=== PATIENT | female | born 1930 | race Caucasian/White ===

== ENCOUNTER 2017-07-02 14:01 | Emergency (ER) | payer MEDICAID, MEDICARE ==
[~2017-07-02] VITALS: Ht 154.9 cm; Wt 59.0 kg
[~2017-07-02 14:01] MED LIST: ARIC23TA PO; ATOR10 PO; BENT20TA PO; CALTTAB PO; FERR324T4 PO; HYDR-2768 PO; LORTA5 PO; LYRI150C PO; NORV5TAB PO; OMEP20TA39 PO; POTA20PA PO; STOO240C PO; VENL100T PO
[2017-07-02 14:03] VITALS: BP 180/80; PULSE 63; RESP 14; TEMP 98.6; O2SAT 95
--- NOTE | 2017-07-02 16:06 | RADRPT ---
EXAM DATE/TIME: 07/02/2017 15:29 [facility] COMPARISON: No previous studies available for comparison. INDICATIONS : Fell yesterday. MEDICAL HISTORY : None. SURGICAL HISTORY : right hip replacement apprx. 10 years ago per son in law ENCOUNTER: Initial ACUITY: 2 days PAIN SCORE: 0/10 LOCATION: Right hip and pelvis FINDINGS: 4 views right hip and pelvis. Diffuse bone demineralization. 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 No evidence of fracture. Alignment within normal limits. CONCLUSION: No evidence of fracture. Right hip prosthesis in place. Ron Moran MD on July 02, 2017 at 16:03 Board Certified Radiologist. This report was verified electronically.
--- NOTE | 2017-07-02 16:15 | PD ---
HPI Chief Complaint: Fall Time Seen by Provider: 15:51 Travel History International Travel<30 days: No Contact w/Intl Traveler<30days: No Traveled to known affect area: No History of Present Illness HPI 86-year-old female presents to the emergency Department with complaint of a bruise to her right hip and thigh after a trip and fall a week ago. She fell to her left side. Was pushed by her children to come in and be evaluated. Was also told by her primary care provider to come and get an x-ray. History of right hip surgery. She denies hitting her head or loss of consciousness. Denies neck pain or back pain. Denies anticoagulant therapy. He has been ambulatory on the effected extremity for the past week. Denies pain. Denies decreased range of motion, decreased strength, paresthesias, loss of sensation to the affected extremity. Denies chest pain, shortness of breath, abdominal pain, vomiting. Symptoms are mild in severity. Has not taken any medications or drainage from his to alleviate her symptoms. History of asthma and arthritis. Has established primary care provider. Allergies to penicillin, zolpidem, etodolac. Has no other medical complaints. No other modifying factors or associated signs and symptoms. PFSH Past Medical History Cancer: No Cardiovascular Problems: No Diabetes: No Endocrine: No Genitourinary: No Hepatitis: No Hiatal Hernia: No Immune Disorder: No Musculoskeletal: Yes (ARTHRITIS) Neurologic: No Psychiatric: Yes (CLAUSTRAPHOBIA) Reproductive: No Respiratory: Yes (ASTHMA) Thyroid Disease: No Past Surgical History Abdominal Surgery: Yes (CHOLECYSTECTOMY) AICD: No Eye Surgery: Yes (JAMES. CATARACT EXTRACT.) Joint Replacement: No Pacemaker: No Social History Tobacco Use: No Substance Use: No Allergies-Medications (Allergen,Severity, Reaction): Coded Allergies: penicillin G (Verified Allergy, Severe, TONGUE/ FACIAL SWELLING, 07/02/17) etodolac (Verified Adverse Reaction, Severe, ANXIETY, AGITATION, 07/02/17) zolpidem (Verified Adverse Reaction, Severe, HALLUCINATIONS, 07/02/17) Reported Meds & Prescriptions Reported Meds & Active Scripts Active Reported Klor-Con (Potassium Chloride) 20 Meq Pow 20 Meq PO DAILY *DISSOLVE POWDER IN 4 OUNCES OF WATER* [place] 5/325 (Hydrocodone-Acetaminophen) 325 Mg/5 Mg Tab 1 Tab PO TID PRN Hctz (Hydrochlorothiazide) 25 Mg Tab 25 Mg PO DAILY Stool Softener (Docusate Calcium) 240 Mg Cap 1 Cap PO HS Caltrate 600+D (Calcium Carbonate/Cholecalciferol) + Tab 1 Tab PO DAILY Ferrous Sulfate 325 Mg Tab 325 Mg PO DAILY Lipitor (Atorvastatin Calcium) 10 Mg Tab 10 Mg PO HS Norvasc (Amlodipine Besylate) 5 Mg Tab 5 Mg PO DAILY Aricept (Donepezil HCl) 23 Mg Tab 23 Mg PO DAILY Effexor (Venlafaxine HCl) 100 Mg Tab 150 Mg PO DAILY Lyrica (Pregabalin) 150 Mg Cap 150 Mg PO BID Hm Omeprazole (Omeprazole) 20 Mg Tab 20 Mg PO BID Bentyl (Dicyclomine HCl) 20 Mg Tab 20 Mg PO DAILY Review of Systems Except as stated in HPI: all other systems reviewed are Neg Physical Exam Narrative GENERAL: Well-nourished, well-developed elderly, female patient, in no acute distress; afebrile, nontoxic-appearing SKIN: Warm and dry. HEAD: Atraumatic. Normocephalic. EYES: Pupils equal and round. No scleral icterus. No injection or drainage. ENT: Mucosa pink and moist. Airway patent. NECK: Trachea midline. Moving freely. No midline tenderness on palpation of the cervical spine. CARDIOVASCULAR: Regular rate and rhythm. No murmur appreciated. RESPIRATORY: No accessory muscle use. Lungs sounds clear and equal bilaterally. GASTROINTESTINAL: Abdomen soft, non-tender, nondistended. Positive bowel sounds. No hepato-splenomegaly, or palpable masses. No guarding. MUSCULOSKELETAL: Right hip with full range of motion; without erythema, edema; with large area of stage 3-5 ecchymosis to the lateral thigh; no tenderness on abduction; no tenderness on palpation of right hip; no obvious deformity; no leg length discrepancy. Right lower extremity is supple and non-tense with 2+ pedal pulse and sensory intact and without erythema or edema. BACK: No point tenderness on palpation of the spine. NEUROLOGICAL: Awake and alert. Oriented 3. No obvious cranial nerve deficits. Motor grossly within normal limits. Normal speech. PSYCHIATRIC: Appropriate mood and affect; insight and judgment normal. Data Data Last Documented VS Vital Signs Date Time Temp Pulse Resp B/P (MAP) Pulse Ox O2 Delivery O2 Flow Rate FiO2 07/02/17 16:56 07/02/17 14:03 98.6 63 14 95 Orders Orders Hip, Uni(Ap&Lat) W Ap Pelvis (07/02/17 ) Ed Discharge Order (07/02/17 16:15) [facility] Medical Decision Making Medical Screen Exam Complete: Yes Emergency Medical Condition: Yes Medical Record Reviewed: Yes Differential Diagnosis Fall, hip contusion, hip fracture Narrative Course 86-year-old female for evaluation of right hip injury after a mechanical fall 1 week ago. Denies hitting her head or loss of consciousness. Denies neck pain or back pain. Was told by her primary care provider and her children to come in for evaluation and x-ray. She is in the laboratory with a normal gait. She denies pain. I offered the patient pain medication and she declined. Right hip x-ray with pelvis ordered. Hip and Pelvis X-Ray 07/02/17 0000 Signed Impressions: Service Date/Time: June 15:29 - CONCLUSION: No evidence of fracture. Right hip prosthesis in place. Ron Moran MD A copy of the x-ray was given to the patient. Patient has an appointment with orthopedic for follow-up. Instructed patient to follow up with primary care provider. Patient verbalizes understanding and agreement with treatment plan. Patient is medically cleared and stable for discharge. Discussed reasons to return to the emergency department. Patient agrees with treatment plan. The patients vital signs are stable and the patient is stable for outpatient follow- up and treatment. Patient discharged home, stable and in no acute distress. Diagnosis Primary Impression: Fall Qualified Codes: W19.XXXA - Unspecified fall, initial encounter Additional Impression: Contusion of right hip Qualified Codes: S70.01XA - Contusion of right hip, initial encounter Referrals: Orthopaedic Surgeon Primary Care Physician Patient Instructions: Fall Prevention for Older Adults (ED), General Instructions, Hip Contusion (ED) Additional Instructions: Tylenol or ibuprofen as directed and as needed for pain and inflammation Rest, ice, compress, and elevate extremity to decrease pain and inflammation Cane/walker for support as needed Avoid aggravating activity; increase activity as tolerated Follow-up with primary care provider Follow-up with orthopedic surgeon Return to the emergency department immediately with worsening of symptoms Med/Other Pt SpecificInfo: No Change to Meds, No Meds Exist/No RX given Disposition: 01 DISCHARGE HOME Condition: Stable Rassi,Linda K SCRAP CRUSHER Jul 02, 2017 16:15
== END 2017-07-02 16:56 | disposition home or self-care (01) ==
LOC: NEPD 14:01
DX: S70.01XA Contusion of right hip, initial encounter (principal); M19.90 Unspecified osteoarthritis, unspecified site; J45.909 Unspecified asthma, uncomplicated; W01.0XXA Fall on same level from slipping, tripping and stumbling without subsequent striking against object, initial encounter
CPT/HCPCS: 73502; 99283

== ENCOUNTER 2017-09-15 14:08 | Inpatient (IN) | payer MEDICARE, OTHER ==
[~2017-09-15] VITALS: Ht 152.4 cm; Wt 62.0 kg
[2017-09-15] MEDS ORDERED: PANTOPRAZOLE INJ 80 MG in SODIUM CHLORIDE 0.9% INJ 35 ML IV ONE (14:16)
[2017-09-15] MEDS ORDERED: SODIUM CHLOR 0.9% 1000 ML INJ 1,000 ML IV SCH ×2 (14:16→16:11)
[2017-09-15] MEDS: PANTOPRAZOLE INJ 80 MG in SODIUM CHLORIDE 0.9% INJ 100 ML IV SCH (14:16)
[2017-09-15 14:30] VITALS: BP 127/56; PULSE 71; RESP 18; TEMP 97.9; O2SAT 96
[2017-09-15] MEDS ORDERED: SODIUM CHLORIDE 0.9% FLUSH 10 ML FLUSH IVF PRN (14:30)
[2017-09-15] MEDS ORDERED: ONDANSETRON HCL 4 MG/2 ML VIAL IVP ONE (14:30)
[2017-09-15 14:46] LABS: AUTOMATED NEUTROPHIL # 6.5 TH/MM3 (1.8-7.7); BASOPHIL % 0.3 % (0.0-2.0); HEMATOCRIT 29.1 % (35.0-46.0); HEMOGLOBIN 9.9 GM/DL (11.6-15.3); LYMPH % 6.9 % (9.0-44.0); LYMPHOCYTE # 0.5 TH/MM3 (1.0-4.8); MEAN CELL VOLUME 90.3 FL (80.0-100.0); MEAN CORPUSCULAR HEMOGLOBIN 30.7 PG (27.0-34.0); MEAN PLATELET VOLUME 9.9 FL (7.0-11.0); MONO % 3.9 % (0.0-8.0); MONOCYTE # 0.3 TH/MM3 (0-0.9); NEUT % 88.9 % (16.0-70.0); PLATELET COUNT 172 TH/MM3 (150-450); RED BLOOD COUNT 3.22 MIL/MM3 (4.00-5.30); WHITE BLOOD COUNT 7.3 TH/MM3 (4.0-11.0)
--- NOTE | 2017-09-15 14:50 | PD ---
HPI Chief Complaint: GI Complaint Time Seen by Provider: 14:16 Travel History International Travel<30 days: No Contact w/Intl Traveler<30days: No Traveled to known affect area: No History of Present Illness HPI The patient is a 86-year-old female who presents to the emergency department via EMS for GI bleed. According to EMS the patient lives with her daughter, the daughter had gone out of the house and was gone for 3-4 hours. When the daughter arrived home the patient was sitting up in a chair, unconscious, with visible hematemesis on her clothing. When EMS arrived the patient's GCS was 3, they placed the patient on a stretcher and removed her to the ambulance where they were going to provide an airway, however, the patient then regained consciousness and went from a GCS of 3, up to a GCS of 14. Upon arrival the patient is awake, alert, somewhat limited historian. She is able to tell me her name and location, but not the year or month. EMS did provide a medication list, no visible anticoagulants, the patient is already on Protonix. The patient denies any chest pain, shortness of breath, or abdominal pain. EMS also states the patient's initial blood pressure was in the 70s, improved with IV fluids into the 120s. PFSH Past Medical History Cancer: No Cardiovascular Problems: No Diabetes: No Endocrine: No Genitourinary: No Hepatitis: No Hiatal Hernia: No Immune Disorder: No Musculoskeletal: Yes (ARTHRITIS) Neurologic: No Psychiatric: Yes (CLAUSTRAPHOBIA) Reproductive: No Respiratory: Yes (ASTHMA) Thyroid Disease: No Past Surgical History Abdominal Surgery: Yes (CHOLECYSTECTOMY) AICD: No Eye Surgery: Yes (JAMES. CATARACT EXTRACT.) Joint Replacement: No Pacemaker: No Social History Tobacco Use: No Substance Use: No Allergies-Medications (Allergen,Severity, Reaction): Coded Allergies: penicillin G (Verified Allergy, Severe, TONGUE/ FACIAL SWELLING, 07/02/17) etodolac (Verified Adverse Reaction, Severe, ANXIETY, AGITATION, 07/02/17) zolpidem (Verified Adverse Reaction, Severe, HALLUCINATIONS, 07/02/17) Reported Meds & Prescriptions Reported Meds & Active Scripts Active Reported Klor-Con (Potassium Chloride) 20 Meq Pow 20 Meq PO DAILY *DISSOLVE POWDER IN 4 OUNCES OF WATER* [place] 5/325 (Hydrocodone-Acetaminophen) 325 Mg/5 Mg Tab 1 Tab PO TID PRN Hctz (Hydrochlorothiazide) 25 Mg Tab 25 Mg PO DAILY Stool Softener (Docusate Calcium) 240 Mg Cap 1 Cap PO HS Caltrate 600+D (Calcium Carbonate/Cholecalciferol) + Tab 1 Tab PO DAILY Ferrous Sulfate 325 Mg Tab 325 Mg PO DAILY Lipitor (Atorvastatin Calcium) 10 Mg Tab 10 Mg PO HS Norvasc (Amlodipine Besylate) 5 Mg Tab 5 Mg PO DAILY Aricept (Donepezil HCl) 23 Mg Tab 23 Mg PO DAILY Effexor (Venlafaxine HCl) 100 Mg Tab 150 Mg PO DAILY Lyrica (Pregabalin) 150 Mg Cap 150 Mg PO BID Hm Omeprazole (Omeprazole) 20 Mg Tab 20 Mg PO BID Bentyl (Dicyclomine HCl) 20 Mg Tab 20 Mg PO DAILY Review of Systems ROS Limitations: Poor Historian Except as stated in HPI: all other systems reviewed are Neg Cardiovascular: No: Chest Pain or Discomfort Respiratory: No: Shortness of Breath Gastrointestinal: Positive: Vomiting, Hematemesis, No: Abdominal Pain Musculoskeletal: Positive: Weakness Neurologic: Positive: Weakness Physical Exam Narrative GENERAL: Awake, slightly lethargic, 86-year-old female SKIN: Focused skin assessment warm/dry. HEAD: Atraumatic. Normocephalic. EYES: No injection or drainage. ENT: No nasal bleeding or discharge. Dry blood in the oropharynx. NECK: Trachea midline. No JVD. CARDIOVASCULAR: Regular rate and rhythm. No murmur appreciated. Heart rate in the 80s. RESPIRATORY: No accessory muscle use. Clear to auscultation. Breath sounds equal bilaterally. GASTROINTESTINAL: Abdomen soft, n tender to palpation epigastrium. Well-healed upper right quadrant scar. Rectal: Gross melena visible that is guaiac positive on the patient's clothing. MUSCULOSKELETAL: No obvious deformities. No clubbing. No cyanosis. No edema. NEUROLOGICAL: Awake, slightly lethargic, and is oriented to person and place. However, patient is not oriented to month or year. Moves all 4 extremities without difficulty. PSYCHIATRIC: Appropriate mood and affect; insight and judgment normal. Data Data Last Documented VS Vital Signs Date Time Temp Pulse Resp B/P (MAP) Pulse Ox O2 Delivery O2 Flow Rate FiO2 09/15/17 14:30 97.9 71 18 127/56 (79) 96 Room Air Orders Orders Complete Blood Count With Diff (09/15/17 14:16) Comprehensive Metabolic Panel (09/15/17 14:16) Prothrombin Time / Inr (Pt) (09/15/17 14:16) Act Partial Throm Time (Ptt) (09/15/17 14:16) Type And Screen (09/15/17 14:16) Chest, Single Ap (09/15/17 14:16) Ecg Monitoring (09/15/17 14:16) Iv Access Insert/Monitor (09/15/17 14:16) Ng Gastric Tube Insert/Monitor (09/15/17 14:16) Orthostatic Vital Signs (09/15/17 14:16) Oximetry (09/15/17 14:16) Ondansetron Inj (Zofran Inj) (09/15/17 14:30) Sodium Chlor 0.9% 1000 Ml Inj (Ns 1000 M (09/15/17 14:16) Sodium Chloride 0.9% Flush (Ns Flush) (09/15/17 14:30) Sodium Chloride 0.9... W/Pantoprazole In (09/15/17 14:16) Sodium Chloride 0.9... W/Pantoprazole In (09/15/17 14:16) Consult Gastroenterology (09/15/17 ) Admit Order (Ed Use Only) (09/15/17 16:12) Admit To Inpatient (09/15/17 ) Code Status (09/15/17 16:11) Vital Signs (Adult) KLAUS.Q1H (09/15/17 16:11) Activity Bed Rest (09/15/17 16:11) Elevate Head Of Bed (09/15/17 16:11) Insert Ng Tube (09/15/17 16:11) Diet Npo (09/15/17 Dinner) Sodium Chlor 0.9% 1000 Ml Inj (Ns 1000 M (09/15/17 16:11) Sodium Chloride 0.9% Flush (Ns Flush) (09/15/17 16:15) Sodium Chloride 0.9% Flush (Ns Flush) (09/15/17 21:00) Ondansetron Inj (Zofran Inj) (09/15/17 16:15) Albuterol Neb (Albuterol Neb) (09/15/17 16:15) Complete Blood Count With Diff (09/16/17 04:00) Comprehensive Metabolic Panel (09/16/17 04:00) Magnesium (Mg) (09/16/17 04:00) Phosphorus (Po4) (09/16/17 04:00) Chest, Single Ap (09/16/17 ) Resp Incentive Spirometry (09/15/17 ) Resp Oxygen Severo C Titrat 1-4 L (09/15/17 ) Pt Request For Service (09/15/17 16:11) Machine Operator Replanter / Telemetry KLAUS.Q8H (09/15/17 16:11) Scd Bilateral/Knee High KLAUS.BID (09/15/17 16:11) ^ Initiate Protocol (09/15/17 16:11) Instruction (09/15/17 16:11) Notify Md To Reorder (09/15/17 16:15) Chlorhexidine 2% Cloth (Chlorhexidine 2% (09/16/17 04:00) Chlorhexidine 2% Cloth (Chlorhexidine 2% (09/15/17 16:15) Mrsa Pcr Surveillance (09/15/17 16:11) Inpatient Certification (09/15/17 ) Labs Laboratory Tests Test 09/15/17 14:30 White Blood Count 7.3 TH/MM3 Red Blood Count 3.22 MIL/MM3 Hemoglobin 9.9 GM/DL Hematocrit 29.1 % Mean Corpuscular Volume 90.3 FL Mean Corpuscular Hemoglobin 30.7 PG Mean Corpuscular Hemoglobin Concent 34.0 % Red Cell Distribution Width 15.0 % Platelet Count 172 TH/MM3 Mean Platelet Volume 9.9 FL Neutrophils (%) (Auto) 88.9 % Lymphocytes (%) (Auto) 6.9 % Monocytes (%) (Auto) 3.9 % Eosinophils (%) (Auto) 0.0 % Basophils (%) (Auto) 0.3 % Neutrophils # (Auto) 6.5 TH/MM3 Lymphocytes # (Auto) 0.5 TH/MM3 Monocytes # (Auto) 0.3 TH/MM3 Eosinophils # (Auto) 0.0 TH/MM3 Basophils # (Auto) 0.0 TH/MM3 CBC Comment DIFF FINAL Differential Comment Blood Urea Nitrogen 73 MG/DL Creatinine 1.13 MG/DL Random Glucose 190 MG/DL Total Protein 6.0 GM/DL Albumin 3.0 GM/DL Calcium Level 8.3 MG/DL Alkaline Phosphatase 67 U/L Aspartate Amino Transf (AST/SGOT) 52 U/L Alanine Aminotransferase (ALT/SGPT) 34 U/L Total Bilirubin 0.3 MG/DL Sodium Level 143 MEQ/L Potassium Level 3.3 MEQ/L Chloride Level 109 MEQ/L Carbon Dioxide Level 20.3 MEQ/L Anion Gap 14 MEQ/L Estimat Glomerular Filtration Rate 45 ML/MIN MDM Medical Decision Making Medical Screen Exam Complete: Yes Emergency Medical Condition: Yes Medical Record Reviewed: Yes Interpretation(s) Laboratory Tests Test 09/15/17 14:30 White Blood Count 7.3 TH/MM3 Red Blood Count 3.22 MIL/MM3 Hemoglobin 9.9 GM/DL Hematocrit 29.1 % Mean Corpuscular Volume 90.3 FL Mean Corpuscular Hemoglobin 30.7 PG Mean Corpuscular Hemoglobin Concent 34.0 % Red Cell Distribution Width 15.0 % Platelet Count 172 TH/MM3 Mean Platelet Volume 9.9 FL Neutrophils (%) (Auto) 88.9 % Lymphocytes (%) (Auto) 6.9 % Monocytes (%) (Auto) 3.9 % Eosinophils (%) (Auto) 0.0 % Basophils (%) (Auto) 0.3 % Neutrophils # (Auto) 6.5 TH/MM3 Lymphocytes # (Auto) 0.5 TH/MM3 Monocytes # (Auto) 0.3 TH/MM3 Eosinophils # (Auto) 0.0 TH/MM3 Basophils # (Auto) 0.0 TH/MM3 CBC Comment DIFF FINAL Differential Comment Blood Urea Nitrogen 73 MG/DL Creatinine 1.13 MG/DL Random Glucose 190 MG/DL Total Protein 6.0 GM/DL Albumin 3.0 GM/DL Calcium Level 8.3 MG/DL Alkaline Phosphatase 67 U/L Aspartate Amino Transf (AST/SGOT) 52 U/L Alanine Aminotransferase (ALT/SGPT) 34 U/L Total Bilirubin 0.3 MG/DL Sodium Level 143 MEQ/L Potassium Level 3.3 MEQ/L Chloride Level 109 MEQ/L Carbon Dioxide Level 20.3 MEQ/L Anion Gap 14 MEQ/L Estimat Glomerular Filtration Rate 45 ML/MIN Last Impressions Chest X-Ray 09/15/17 7516 Signed Impressions: Service Date/Time: Friday, September 15, 2017 15:04 - CONCLUSION: No acute cardiopulmonary abnormality is identified. Wang Jeffery MD Differential Diagnosis Differential diagnosis includes upper GI bleed, perforated viscus, peptic ulcer disease, gastritis, angiodysplasia, AV malformation, diverticulosis, internal hemorrhoids, symptomatic anemia. Narrative Course IV was established, labs are drawn and sent, and the patient was placed on cardiac telemetry monitoring and continuous pulse oximetry monitoring. EKG was ordered and interpreted. The patient was a arts and sciences dean Protonix bolus and placed on a Protonix drip. The patient's physical examination reveals gross melena within the undergarments as well as what appears to be dried blood over her shirt and pants. Therefore, type and screen was sent to lab. NG tube was placed. The patient's hemoglobin was 9.9, this is consistent with previous hemoglobin and EMR. However, the patient's BUN was 73 and creatinine was 1.13, previous BUN was 19. With the hematemesis, large amount of melena, most likely this is a upper GI bleed, possibly peptic ulcer disease/gastritis. The patient was placed on Protonix and a Protonix drip. As the patient did have a GCS of 3 at home, it did elevate to 14, however, she did have a large melena/blood bowel movement in the emergency department, therefore, the patient will be placed in the intensive care unit. A call was placed to the on-call grounds maintenance supervisor at 3:59 PM. I discussed the patient with Dr. Frank who is aware of the patient. A call was placed to the on-call cytotechnologist/cytology supervisor at 3:59 PM. I discussed the patient with Dr. Steward who agrees with admission. Critical Care Narrative Aggregate critical care time was 35 minutes. Time to perform other separately billable procedures was not included in the critical care time. My time did not include minutes spent treating any other patients simultaneously or on activities that did not directly contribute to the patient's treatment. The services I provided to this patient were to treat and/or prevent clinically significant deterioration that could result in: Hemorrhagic shock, aspiration, syncope, arrhythmia, . I provided critical care services requiring my management, as noted below: Chart data review, documentation time, medication orders and management, vital sign assessments/reviewing monitor data, ordering and reviewing lab tests, ordering and interpreting/reviewing x-rays and diagnostic studies, care of the patient and discussion of the patient with the admitting physicians. Physician Communication Physician Communication A call was placed to the on-call cytotechnologist/cytology supervisor. I discussed the patient with Dr. Steward who agrees with admission. I discussed the patient with Dr. Frank who is aware of the patient. Diagnosis Primary Impression: Upper GI bleed Additional Impression: Acute prerenal azotemia Admitting Information Admitting Physician Requests: Admit Condition: Stable Mario Webb MD Sep 15, 2017 14:50
[2017-09-15 15:02] LABS: ALT (GPT) 34 U/L (10-53); AST (GOT) 52 U/L (15-37); BICARBONATE 20.3 MEQ/L (21.0-32.0); BLOOD UREA NITROGEN 73 MG/DL (7-18); CALCIUM 8.3 MG/DL (8.5-10.1); CHLORIDE 109 MEQ/L (98-107); CREATININE 1.13 MG/DL (0.50-1.00); GLOMERULAR FILTRATION RATE 45 ML/MIN (>89); GLUCOSE,RANDOM 190 MG/DL (74-106); SODIUM (NA) 143 MEQ/L (136-145)
[2017-09-15 15:05] LABS: ALKALINE PHOSPHATASE 67 U/L (45-117); TOTAL BILIRUBIN ADULT 0.3 MG/DL (0.2-1.0)
--- NOTE | 2017-09-15 15:49 | RADRPT ---
EXAM DATE/TIME: 09/15/2017 15:04 [facility] COMPARISON: No previous studies available for comparison. INDICATIONS : Vomiting. MEDICAL HISTORY : None. SURGICAL HISTORY : right hip replacement. ENCOUNTER: Initial ACUITY: 1 day PAIN SCORE: 0/10 LOCATION: Bilateral chest FINDINGS: Portable AP view of the chest demonstrates a normal-sized cardiac silhouette. Nasogastric tube extend s into the stomach with tip in the fundus. EKG lines overlie the patient. There is mild atelectasis a t the left lung base. No effusion, consolidation, or pneumothorax is identified. The bones and soft t issues demonstrate no acute finding. There are degenerative changes of the thoracic spine. CONCLUSION: No acute cardiopulmonary abnormality is identified. Wang Jeffery MD on September 15, 2017 at 15:46 Board Certified Radiologist. This report was verified electronically.
[2017-09-15] MEDS ORDERED: CHLORHEXIDINE GLUCONATE 2 % 1 PACK (2 CLOTHS) TOP PRN (16:15)
[2017-09-15] MEDS ORDERED: MISCELLANEOUS NURSING INFORMATION XX SCH (16:15)
[2017-09-15] MEDS ORDERED: ACETAMINOPHEN 1000 MG/100 ML 100 ML IV PRN (16:15)
[2017-09-15] MEDS ORDERED: SODIUM CHLORIDE 0.9% FLUSH 10 ML FLUSH IV FLUSH PRN (16:15)
[2017-09-15] MEDS ORDERED: ONDANSETRON HCL 4 MG/2 ML VIAL IV PUSH PRN (16:15)
[2017-09-15] MEDS ORDERED: RESP: ALBUTEROL 2.5 MG/3 ML NEB (PRN) INH (16:15)
--- NOTE | 2017-09-15 16:35 | PD.CONS ---
HPI History of Present Illness This is a 86 year old yo F who presented to the ER with after a syncopal episode at home. Per daughter at bedside, she reports she came home and her mother (the pt) was passed out in her mobile walker. Now has a GCS of 14 and able to answer questions appropriately. Pt states she has not been feeling well for the past couple days. She has been intermittently nauseous and had an upset stomach with poor appetite since Thursday. The emesis began today, appears to be coffee ground emesis. Pt also had a melanotic stool in the ER, unsure of this started prior to arrival. Pt also complaining of epigastric abdominal pain earlier, now resolved. Pt has history of GIB, admitted to [facility] last January and was found to have two ulcers. Per the daughter pt was taking Aleve at the time, no longer on NSAIDs. Denies ETOH, blood thinners. (Tari Worley) PFSH Past Medical History HTN Asthma PUD Hyperlipidemia Arthritis Claustrophobia Past Surgical History Cholecystectomy Bilateral cataract extract (Tari Worley) Coded Allergies: penicillin G (Verified Allergy, Severe, TONGUE/ FACIAL SWELLING, 07/02/17) etodolac (Verified Adverse Reaction, Severe, ANXIETY, AGITATION, 07/02/17) zolpidem (Verified Adverse Reaction, Severe, HALLUCINATIONS, 07/02/17) Social History Denies ETOH Farrukh smoking (Tari Worley) Review of Systems Gastrointestinal: COMPLAINS OF: Abdominal pain, Black stools, Diarrhea, Nausea , Vomiting, Hematemesis (Tari Worley) GI Exam Vitals I&O Vital Signs Date Time Temp Pulse Resp B/P (MAP) Pulse Ox O2 Delivery O2 Flow Rate FiO2 09/15/17 14:30 97.9 71 18 127/56 (79) 96 Room Air Imaging Last Impressions Chest X-Ray 09/15/17 1416 Signed Impressions: Service Date/Time: Friday, September 15, 2017 15:04 - CONCLUSION: No acute cardiopulmonary abnormality is identified. Wang Jeffery MD Laboratory Test 09/15/17 14:30 White Blood Count 7.3 TH/MM3 Red Blood Count 3.22 MIL/MM3 Hemoglobin 9.9 GM/DL Hematocrit 29.1 % Mean Corpuscular Volume 90.3 FL Mean Corpuscular Hemoglobin 30.7 PG Mean Corpuscular Hemoglobin Concent 34.0 % Red Cell Distribution Width 15.0 % Platelet Count 172 TH/MM3 Mean Platelet Volume 9.9 FL Neutrophils (%) (Auto) 88.9 % Lymphocytes (%) (Auto) 6.9 % Monocytes (%) (Auto) 3.9 % Eosinophils (%) (Auto) 0.0 % Basophils (%) (Auto) 0.3 % Neutrophils # (Auto) 6.5 TH/MM3 Lymphocytes # (Auto) 0.5 TH/MM3 Monocytes # (Auto) 0.3 TH/MM3 Eosinophils # (Auto) 0.0 TH/MM3 Basophils # (Auto) 0.0 TH/MM3 CBC Comment DIFF FINAL Differential Comment Blood Urea Nitrogen 73 MG/DL Creatinine 1.13 MG/DL Random Glucose 190 MG/DL Total Protein 6.0 GM/DL Albumin 3.0 GM/DL Calcium Level 8.3 MG/DL Alkaline Phosphatase 67 U/L Aspartate Amino Transf (AST/SGOT) 52 U/L Alanine Aminotransferase (ALT/SGPT) 34 U/L Total Bilirubin 0.3 MG/DL Sodium Level 143 MEQ/L Potassium Level 3.3 MEQ/L Chloride Level 109 MEQ/L Carbon Dioxide Level 20.3 MEQ/L Anion Gap 14 MEQ/L Estimat Glomerular Filtration Rate 45 ML/MIN Physical Examination HEENT: Normocephalic; atraumatic CHEST: Even/unlabored CARDIAC: RRR ABDOMEN: Soft, nondistended, nontender; bowel sounds active SKIN: Pale TIE HACKER: Alert and oriented times three. (Tari Worley) Assessment and Plan Plan Assessment: - GIB, symptoms appear to be upper GIB Complaining of coffee ground emesis that began today, also had a melanotic stool in the ER- states epigastric pain earlier today, now resolved. History of PUD- EGD done at [facility] in January 2017 revealed 2 ulcers, likely secondary to NSAIDs Denies blood thinners, ETOH, NSAIDs - Elevated AST of unclear significance- further work up can be done once patient is stabilized Plan: EGD today Obtain consent Keep NPO Protonix gtt NGT to LIWS Coags pending 2 U PRBCs have been ordered Further recommendations based on findings of above Pt has been seen and examined by myself and Dr. Ruiz and this note is written on his behalf (Tari Worley) Plan Patient was seen and examined, agree with above-noted, plan on doing upper endoscopy early tomorrow morning unless there is active bleeding tonight, monitor H&H, (Mumtaz Ruiz MD) Tari Worley Sep 15, 2017 16:35 Mumtaz Ruiz MD Sep 15, 2017 19:33
--- NOTE | 2017-09-15 16:48 | HHI.HP ---
HPI Service Critical Care Medicine Primary Care Physician Unknown Admission Diagnosis Upper GI bleed, prerenal azotemia Diagnosis: (1) Upper GI bleed Diagnosis: Principal (2) Hypothyroidism Diagnosis: Principal (3) Osteoporosis Diagnosis: Principal (4) Gastroesophageal reflux disease Diagnosis: Principal (5) Neuropathy Diagnosis: Secondary (6) Hypertension Diagnosis: Principal (7) Dementia Diagnosis: Secondary (8) Depression Diagnosis: Principal (9) Acute prerenal azotemia Diagnosis: Principal (10) Hematemesis Diagnosis: Principal (11) Acute kidney injury Diagnosis: Principal (12) Elevated AST (SGOT) Diagnosis: Principal (13) Hyperglycemia Diagnosis: Principal (14) Acute blood loss anemia Diagnosis: Principal (15) Melena Diagnosis: Principal Chief Complaint: Found unresponsive at home covered in blood Travel History International Travel<30 Days: No Contact w/Intl Traveler <30 Da: No Traveled to Known Affected Are: No History of Present Illness This is a 86-year-old female. Date of admission 09/15/2017. Past medical history includes prior GI bleed/gastric ulcers 2 at [facility] in [place] in January 2017 for gastric ulcer, peripheral neuropathy, osteoarthritis/osteoporosis, bilateral cataracts, depression/anxiety, anemia, macular degeneration, chronic low back pain, hypertension, gastroesophageal reflux disease and asthma she presented originally to [place] ED after her daughter found her at home passed out in her mobile walker at that time she was diagnosed being covered with blood. GCS originally GCS was documented 3 but is currently at 14. Since Thursday, patient has been nauseous and "not feeling herself". She is also noted to have a melanotic stool. Pt also complaining of epigastric abdominal pain earlier, now resolved. Per the daughter, she was taking Aleve at the time, no longer on NSAIDs. Denies ETOH, steroid use and blood thinners. Review of Systems Constitutional: COMPLAINS OF: Fatigue, DENIES: Fever, Weight gain, Weight loss Endocrine: DENIES: Abnorml menstrual pattern, Polyuria Eyes: DENIES: Blurred vision Ears, nose, mouth, throat: DENIES: Tinnitus Respiratory: DENIES: Apneas Cardiovascular: DENIES: Chest pain Gastrointestinal: COMPLAINS OF: Abdominal pain, Black stools, Nausea, Vomiting , DENIES: Constipation, Diarrhea, Difficulty Swallowing Genitourinary: DENIES: Urinary frequency, Urinary incontinence Musculoskeletal: COMPLAINS OF: Joint pain Integumentary: DENIES: Abnormal pigmentation Hematologic/lymphatic: DENIES: Bruising Immunologic/allergic: DENIES: Eczema Neurologic: DENIES: Abnormal gait Psychiatric: COMPLAINS OF: Confusion Past Family Social History Allergies: Coded Allergies: penicillin G (Verified Allergy, Severe, TONGUE/ FACIAL SWELLING, 07/02/17) etodolac (Verified Adverse Reaction, Severe, ANXIETY, AGITATION, 07/02/17) zolpidem (Verified Adverse Reaction, Severe, HALLUCINATIONS, 07/02/17) Past Medical History Depression/anxiety Dementia disorder NOS Chronic anemia Macular degeneration Chronic low back pain Osteoporosis/osteoarthritis Gastroesophageal reflux disease history of gastric ulcer Peripheral neuropathy History of essential hypertension Dyslipidemia Past Surgical History Coccyx fracture Cholecystectomy Right total hip replacement Reported Medications Donepezil 10 mg p.o. daily Dicyclomine 20 mg p.o. daily Iron sulfate 325 mg p.o. daily Atorvastatin 10 mg p.o. daily Amlodipine 5 mg p.o. daily Pregabalin 100 mg p.o. twice daily Venlafaxine 150 mg p.o. daily Calcium carbonate 600 mg p.o. daily Potassium chloride 10 mEq daily Hydrochlorothiazide 25 mg p.o. daily Pantoprazole 40 mg p.o. twice daily Active Ordered Medications Reviewed in EMR Family History Father diabetes and cancer. Mother with hypertension Social History No tobacco, alcohol or IV drug use Physical Exam Vital Signs Vital Signs Date Time Temp Pulse Resp B/P (MAP) Pulse Ox O2 Delivery O2 Flow Rate FiO2 09/15/17 14:30 97.9 71 18 127/56 (79) 96 Room Air Physical Exam GENERAL: This is a 86-year-old female with an NG tube in her right nares no acute distress SKIN: Warm and dry. Well perfused HEAD: Atraumatic. Normocephalic. EYES: Pupils equal and round. No scleral icterus. No injection or drainage. ENT: No nasal bleeding or discharge. Mucous membranes pink and moist. NECK: Trachea midline. No JVD. CARDIOVASCULAR: Regular rate and rhythm. S1, S2 predose for without murmur RESPIRATORY: No accessory muscle use. Clear to auscultation. Breath sounds equal bilaterally. GASTROINTESTINAL: Abdomen soft, non-tender, nondistended. MUSCULOSKELETAL: Extremities without significant peripheral edema NEUROLOGICAL: Awake and alert. No obvious cranial nerve deficits. Motor grossly within normal limits. Five out of 5 muscle strength in the arms and legs. Normal speech. PSYCHIATRIC: Pleasantly confused Laboratory Laboratory Tests Test 09/15/17 14:30 White Blood Count 7.3 Red Blood Count 3.22 Hemoglobin 9.9 Hematocrit 29.1 Mean Corpuscular Volume 90.3 Mean Corpuscular Hemoglobin 30.7 Mean Corpuscular Hemoglobin Concent 34.0 Red Cell Distribution Width 15.0 Platelet Count 172 Mean Platelet Volume 9.9 Neutrophils (%) (Auto) 88.9 Lymphocytes (%) (Auto) 6.9 Monocytes (%) (Auto) 3.9 Eosinophils (%) (Auto) 0.0 Basophils (%) (Auto) 0.3 Neutrophils # (Auto) 6.5 Lymphocytes # (Auto) 0.5 Monocytes # (Auto) 0.3 Eosinophils # (Auto) 0.0 Basophils # (Auto) 0.0 CBC Comment DIFF FINAL Differential Comment Blood Urea Nitrogen 73 Creatinine 1.13 Random Glucose 190 Total Protein 6.0 Albumin 3.0 Calcium Level 8.3 Alkaline Phosphatase 67 Aspartate Amino Transf (AST/SGOT) 52 Alanine Aminotransferase (ALT/SGPT) 34 Total Bilirubin 0.3 Sodium Level 143 Potassium Level 3.3 Chloride Level 109 Carbon Dioxide Level 20.3 Anion Gap 14 Estimat Glomerular Filtration Rate 45 Result Diagram: 09/15/17 1430 09/15/17 1430 Imaging Last Impressions Chest X-Ray 09/15/17 1416 Signed Impressions: Service Date/Time: Friday, September 15, 2017 15:04 - CONCLUSION: No acute cardiopulmonary abnormality is identified. Wang Jeffery MD Septic Shock Reassessment Septic shock perfusion: reassessment completed Caprini VTE Risk Assessment Caprini VTE Risk Assessment: Mod/High Risk (score >= 2) VTE Pharm Contraindication: Active bleeding Caprini Risk Assessment Model Point Value = 1 Point Value = 2 Point Value = 3 Point Value = 5 Age 41-60 Minor surgery BMI > 25 kg/m2 Swollen legs Varicose veins or History of unexplained or recurrent spontaneous Oral contraceptives or hormone replacement Sepsis (< 1 month) Serious lung disease, including pneumonia (< 1 month) Abnormal pulmonary function Acute myocardial infarction Congestive heart failure (< 1 month) History of inflammatory bowel disease Medical patient at bed rest Age 61-74 Arthroscopic surgery Major open surgery (> 45 min) Laparoscopic surgery (> 45 min) Malignancy Confined to bed (> 72 hours) Immobilizing plaster cast Central venous access Age >= 75 History of VTE Family history of VTE Factor V Leiden Prothrombin [id number] Lupus anticoagulant Anticardiolipin antibodies Elevated serum homocysteine Heparin-induced thrombocytopenia Other congenital or acquired thrombophilia Stroke (< 1 month) Elective arthroplasty Hip, pelvis, or leg fracture Acute spinal cord injury (< 1 month) Prophylaxis Regimen Total Risk Factor Score Risk Level Prophylaxis Regimen 0-1 Low Early ambulation 2 Moderate Order ONE of the following: *Sequential Compression Device (SCD) *Heparin 5000 units SQ BID 3-4 Higher Order ONE of the following medications: *Heparin 5000 units SQ TID *Enoxaparin/Lovenox 40 mg SQ daily (WT < 150 kg, CrCl > 30 mL/min) *Enoxaparin/Lovenox 30 mg SQ daily (WT < 150 kg, CrCl > 10-29 mL/min) *Enoxaparin/Lovenox 30 mg SQ BID (WT < 150 kg, CrCl > 30 mL/min) AND/OR *Sequential Compression Device (SCD) 5 or more Highest Order ONE of the following medications: *Heparin 5000 units SQ TID (Preferred with Epidurals) *Enoxaparin/Lovenox 40 mg SQ daily (WT < 150 kg, CrCl > 30 mL/min) *Enoxaparin/Lovenox 30 mg SQ daily (WT < 150 kg, CrCl > 10-29 mL/min) *Enoxaparin/Lovenox 30 mg SQ BID (WT < 150 kg, CrCl > 30 mL/min) AND *Sequential Compression Device (SCD) Assessment and Plan Assessment and Plan Neuro/Psych: Dementia disorder NOS Macular degeneration Depression/anxiety Holding donepezil 10 mg p.o. daily for Alzheimer dementia. Resume when clinically indicated Holding venlafaxine 150 mg p.o. daily for depression. Resume clinically indicated Holding pregabalin 100 mg p.o. twice daily for neuropathy. Resume clinically indicated Ofirmev 1 g IV every 8 hours as needed fever/pain 1 through 10 CV: Essential hypertension Dyslipidemia Currently on normal saline at 84 cc an hour Holding amlodipine 5 mg daily and hydrochlorthiazide 25 mg daily for hypertension. Resume clinically indicated Holding atorvastatin 10 mg daily for dyslipidemia. Resume clinically indicated Follow-up on EKG Resp: History of asthma Nasal cannula to maintain saturations greater than or equal to 92% Incentive spirometry while awake As needed albuterol aerosols every 2 hours as needed dyspnea GI: Upper GI bleed History of gastric ulcers IBS Elevated AST Received pantoprazole 80 mg IV 1. Currently on drip at 8 mg an hour At home on pantoprazole 40 mg p.o. twice daily GI consultation for upper endoscopy Holding dicyclomine 20 mg/home medication Recheck CMP in a.m. : Mckinley catheter if indicated for accurate I's and O's in a critically ill patient Endo: Hyperglycemia Hypothyroidism Sliding scale insulin with an Novulin N with Accu-Cheks every 6 hours to maintain euglycemia/low regimen Resume levothyroxine 50 mcg as soon as clinically K. No IV levothyroxine available at [place] except for myxedema coma Renal: Prerenal azotemia Monitor urine output Accurate I's and O's Avoid nephrotoxic drug Heme: Acute blood loss anemia H/H every 6 hours Type and cross for 2 to PRBCs Coags are currently pending ID: Monitor for infection FEN: Hypokalemia 30 mEq KCl IV 1 now. Recheck in a.m. MSK: Osteoporosis/arthritis PT evaluate and treat. Holding calcium/vitamin D/home medication Access- Utilize peripheral IV. Central line if indicated Prophylaxis -GI -pantoprazole -DVT -SCD/no pharmacological prophylaxis in light of upper GI bleed Critical Care: The total critical care time was 35 minutes. Time to perform other separately billable procedures was not included in the critical care time. Code Status Full code Discussed Condition With Dr. Webb/ED physician. Patient. Care plan discussed and all questions answered Problem Qualifiers (1) Hypothyroidism: Qualified Codes: E03.9 - Hypothyroidism, unspecified (2) Osteoporosis: Qualified Codes: M81.0 - Age-related osteoporosis without current pathological fracture (3) Gastroesophageal reflux disease: Qualified Codes: K21.9 - Gastro-esophageal reflux disease without esophagitis (4) Dementia: Qualified Codes: F03.90 - Unspecified dementia without behavioral disturbance (5) Depression: Qualified Codes: F32.9 - Major depressive disorder, single episode, unspecified (6) Hematemesis: Qualified Codes: K92.0 - Hematemesis Kingsley Steward MD Sep 15, 2017 16:48
[2017-09-15 17:00] VITALS: BP 176/77; PULSE 77; RESP 14; TEMP 98; O2SAT 98
[2017-09-15] MEDS ORDERED: DEXTROSE 50% IN WATER 50 ML VIAL(D50) IV PUSH PRN (17:00)
[2017-09-15] MEDS ORDERED: GLUCAGON 1 MG/ML VIAL OTHER PRN (17:00)
[2017-09-15 18:00] VITALS: BP 163/73; PULSE 78; RESP 14; TEMP 98; O2SAT 99
[2017-09-15] MEDS: INSULIN NovoLIN REGULAR SUPPLEMENTAL SCALE SQ SCH (18:00)
[2017-09-15] MEDS: POTASSIUM CHLOR 10 MEQ PREMIX 100 ML IV SCH ×3 (19:33→22:33)
[2017-09-15 19:35] LABS: HEMATOCRIT 32.4 % (35.0-46.0); HEMOGLOBIN 10.6 GM/DL (11.6-15.3)
[2017-09-15 20:00] VITALS: BP 160/72; PULSE 87; RESP 20; TEMP 98; O2SAT 98
[2017-09-15] MEDS: SODIUM CHLORIDE 0.9% FLUSH 10 ML FLUSH IV FLUSH SCH (20:47)
[2017-09-15] MEDS: CHLORHEXIDINE GLUCONATE 2 % 1 PACK (2 CLOTHS) TOP SCH (20:48)
[2017-09-15 22:00] VITALS: PULSE 103
[2017-09-16] VITALS (20 sets, daily range): BP systolic 159–189; BP diastolic 60–84; PULSE 72–103; RESP 16–25; TEMP 97.7–98.9; O2SAT 97–100
[2017-09-16] MEDS: PANTOPRAZOLE INJ 80 MG in SODIUM CHLORIDE 0.9% INJ 100 ML IV SCH ×3 (00:16→20:16)
[2017-09-16 00:49] LABS: HEMATOCRIT 31.1 % (35.0-46.0); HEMOGLOBIN 10.1 GM/DL (11.6-15.3)
[2017-09-16 01:18] LABS: INTERNATIONAL NORMALIZED RATIO 1.1 RATIO; PROTHROMBIN TIME - PATIENT 11.1 SEC (9.8-11.6)
--- NOTE | 2017-09-16 05:13 | RADRPT ---
EXAM DATE/TIME: 09/16/2017 03:41 [facility] COMPARISON: CHEST SINGLE AP, September 15, 2017, 15:04. INDICATIONS : Short of breath. MEDICAL HISTORY : None. SURGICAL HISTORY : None. ENCOUNTER: Subsequent ACUITY: 2 days PAIN SCORE: 0/10 LOCATION: Bilateral chest FINDINGS: A single view of the chest demonstrates the lungs to be symmetrically aerated without evidence of mas s, infiltrate or effusion. Nasogastric tube unchanged. The cardiomediastinal contours are unremarkab le. Osseous structures are intact. CONCLUSION: No acute disease. Davion Hough MD on September 16, 2017 at 5:11 Board Certified Radiologist. This report was verified electronically.
[2017-09-16] MEDS: INSULIN NovoLIN REGULAR SUPPLEMENTAL SCALE SQ SCH ×4 (06:00→18:00)
[2017-09-16 06:54] LABS: AUTOMATED NEUTROPHIL # 11.8 TH/MM3 (1.8-7.7); BASOPHIL % 0.3 % (0.0-2.0); HEMATOCRIT 24.2 % (35.0-46.0); LYMPH % 4.8 % (9.0-44.0); LYMPHOCYTE # 0.6 TH/MM3 (1.0-4.8); MEAN CORPUSCULAR HEMOGLOBIN 30.1 PG (27.0-34.0); MEAN CORPUSCULAR HGB CONC 33.1 % (32.0-36.0); MEAN PLATELET VOLUME 10.1 FL (7.0-11.0); MONO % 5.9 % (0.0-8.0); MONOCYTE # 0.8 TH/MM3 (0-0.9); PLATELET COUNT 144 TH/MM3 (150-450); RED BLOOD COUNT 2.66 MIL/MM3 (4.00-5.30); RED CELL DISTRIBUTION WIDTH 15.4 % (11.6-17.2); WHITE BLOOD COUNT 13.3 TH/MM3 (4.0-11.0)
[2017-09-16 07:31] LABS: ALBUMIN 2.6 GM/DL (3.4-5.0); BICARBONATE 19.5 MEQ/L (21.0-32.0); CALCIUM 6.5 MG/DL (8.5-10.1); CREATININE 0.55 MG/DL (0.50-1.00); MAGNESIUM 1.6 MG/DL (1.5-2.5); PHOSPHORUS 2.2 MG/DL (2.5-4.9); TOTAL BILIRUBIN ADULT 0.4 MG/DL (0.2-1.0); TOTAL PROTEIN 5.2 GM/DL (6.4-8.2)
[2017-09-16 07:39] LABS: CALCIUM-PROTEIN CORRECTED 7.4 MG/DL (8.5-10.1)
--- NOTE | 2017-09-16 08:30 | PD.PROCEDR ---
GI Procedure PROCEDURE PERFORMED Upper endoscopy with biopsy INDICATION FOR PROCEDURE Hematemesis, anemia, GI bleed PROCEDURE: The procedure, risks and benefits were discussed with Ms. Morgan and informed consent was obtained. Anesthesia sedated her with Diprivan. She was placed in the left lateral decubitus position. EGD: The Pentax videoscope was introduced through the oropharynx and advanced to the second portion of the duodenum under direct visualization. Retroflexion was performed in the stomach. Biopsy from the antrum ESTIMATED BLOOD LOSS: None SPECIMENS REMOVED: Antrum ulcer COMPLICATIONS: None IMPRESSION: 2 large ulcers in the antrum, no active bleeding, most likely the source of the bleed yesterday, biopsy was done Gastritis Normal endoscopy otherwise PLAN: Monitor H&H Protonix 40 mg daily Await biopsy results May feed patient diabetic diet Okay to transfer to floor Home soon Avoid NSAIDs Mumtaz Ruiz MD Sep 16, 2017 08:30
--- NOTE | 2017-09-16 08:31 | HHI.GIFU ---
Subjective Remarks Patient laying in bed, comfortable, no more GI bleed, pleasantly confused Objective Vitals I&O Vital Signs Date Time Temp Pulse Resp B/P (MAP) Pulse Ox O2 Delivery O2 Flow Rate FiO2 09/16/17 06:00 85 09/16/17 04:00 96 09/16/17 04:00 98.0 96 16 186/82 (116) 97 09/16/17 02:00 98 09/16/17 00:00 97.7 93 16 164/76 (105) 99 09/16/17 00:00 93 09/15/17 22:00 103 09/15/17 20:00 98.0 87 20 160/72 (101) 98 09/15/17 20:00 87 09/15/17 18:00 98.0 78 14 163/73 (103) 99 09/15/17 17:00 98.0 77 14 176/77 (110) 98 09/15/17 14:30 97.9 71 18 127/56 (79) 96 Room Air I/O 09/15/17 09/15/17 09/15/17 09/16/17 09/16/17 09/16/17 07:00 15:00 23:00 07:00 15:00 23:00 Intake Total 200 ml 100 ml Balance 200 ml 100 ml Intake IV Total 200 ml 100 ml # Voids 3 # Bowel Movements 2 Laboratory Laboratory Tests Test 09/15/17 14:30 09/15/17 17:30 09/15/17 19:18 09/16/17 00:22 White Blood Count 7.3 Red Blood Count 3.22 Hemoglobin 9.9 10.6 10.1 Hematocrit 29.1 32.4 31.1 Mean Corpuscular Volume 90.3 Mean Corpuscular Hemoglobin 30.7 Mean Corpuscular Hemoglobin Concent 34.0 Red Cell Distribution Width 15.0 Platelet Count 172 Mean Platelet Volume 9.9 Neutrophils (%) (Auto) 88.9 Lymphocytes (%) (Auto) 6.9 Monocytes (%) (Auto) 3.9 Eosinophils (%) (Auto) 0.0 Basophils (%) (Auto) 0.3 Neutrophils # (Auto) 6.5 Lymphocytes # (Auto) 0.5 Monocytes # (Auto) 0.3 Eosinophils # (Auto) 0.0 Basophils # (Auto) 0.0 CBC Comment DIFF FINAL Differential Comment Blood Urea Nitrogen 73 Creatinine 1.13 Random Glucose 190 Total Protein 6.0 Albumin 3.0 Calcium Level 8.3 Alkaline Phosphatase 67 Aspartate Amino Transf (AST/SGOT) 52 Alanine Aminotransferase (ALT/SGPT) 34 Total Bilirubin 0.3 Sodium Level 143 Potassium Level 3.3 Chloride Level 109 Carbon Dioxide Level 20.3 Anion Gap 14 Estimat Glomerular Filtration Rate 45 Nasal Screen MRSA (PCR) MRSA NOT DETECTED Lactic Acid Level 2.2 1.2 Prothrombin Time 11.1 Prothromb Time International Ratio 1.1 Activated Partial Thromboplast Time 23.8 Test 09/16/17 03:48 09/16/17 06:08 Lactic Acid Level 2.3 White Blood Count 13.3 Red Blood Count 2.66 Hemoglobin 8.0 Hematocrit 24.2 Mean Corpuscular Volume 91.0 Mean Corpuscular Hemoglobin 30.1 Mean Corpuscular Hemoglobin Concent 33.1 Red Cell Distribution Width 15.4 Platelet Count 144 Mean Platelet Volume 10.1 Neutrophils (%) (Auto) 89.0 Lymphocytes (%) (Auto) 4.8 Monocytes (%) (Auto) 5.9 Eosinophils (%) (Auto) 0.0 Basophils (%) (Auto) 0.3 Neutrophils # (Auto) 11.8 Lymphocytes # (Auto) 0.6 Monocytes # (Auto) 0.8 Eosinophils # (Auto) 0.0 Basophils # (Auto) 0.0 CBC Comment DIFF FINAL Differential Comment Blood Urea Nitrogen 42 Creatinine 0.55 Random Glucose 98 Total Protein 5.2 Albumin 2.6 Calcium Level 6.5 Phosphorus Level 2.2 Magnesium Level 1.6 Alkaline Phosphatase 55 Aspartate Amino Transf (AST/SGOT) 36 Alanine Aminotransferase (ALT/SGPT) 26 Total Bilirubin 0.4 Sodium Level 151 Potassium Level 3.2 Chloride Level 122 Carbon Dioxide Level 19.5 Anion Gap 10 Estimat Glomerular Filtration Rate 104 Protein Corrected Calcium 7.4 Thyroid Stimulating Hormone 3rd Gen 1.800 Physical Exam HEENT: Pupils round and reactive to light; normocephalic; atraumatic; no jaundice. Throat is clear. NECK: Neck is supple, no JVD, no lymphadenopathy. CHEST: Chest is clear to auscultation and percussion. CARDIAC: Regular rate and rhythm with no murmur gallop or rubs. ABDOMEN: Soft, nondistended, nontender; no hepatosplenomegaly; bowel sounds are present in all four quadrants. EXTREMITIES: No clubbing, cyanosis, or edema. SKIN: Normal; no rash; no jaundice. FILLING MACHINE SET UP MECHANIC: No focal deficits; alert and oriented times 1 Assessment and Plan Plan Patient was seen and examined Patient does not have active GI bleed at this point, hemoglobin stable, upper endoscopy was performed IMPRESSION: 2 large ulcers in the antrum, no active bleeding, most likely the source of the bleed yesterday, biopsy was done Gastritis Normal endoscopy otherwise PLAN: Monitor H&H Protonix 40 mg daily Await biopsy results May feed patient diabetic diet Okay to transfer to floor Home soon Avoid NSAIDs Mumtaz Ruiz MD Sep 16, 2017 08:31
--- NOTE | 2017-09-16 08:36 | HHI.CCPN ---
Subjective Remarks/Hospital Course This is a 86-year-old female. Date of admission 09/15/2017. Past medical history includes prior GI bleed/gastric ulcers 2 at [facility] in [place] in January 2017 for gastric ulcer, peripheral neuropathy, osteoarthritis/osteoporosis, bilateral cataracts, depression/anxiety, anemia, macular degeneration, chronic low back pain, hypertension, gastroesophageal reflux disease and asthma she presented originally to [facility] after her daughter found her at home passed out in her mobile walker at that time she was diagnosed being covered with blood. GCS originally GCS was documented 3 but is currently at 14. Since Thursday, patient has been nauseous and "not feeling herself". She is also noted to have a melanotic stool. Pt also complaining of epigastric abdominal pain earlier, now resolved. Per the daughter, she was taking Aleve at the time, no longer on NSAIDs. Denies ETOH, steroid use and blood thinners. Subjective 09/16: Resting comfortably in bed in no acute distress. Status post EGD finding 2 nonbleeding gastric ulcers. Will transfuse 1 unit PRBCs today. Denies abdominal pain, chest pain or shortness of breath Objective Vital Signs Date Time Temp Pulse Resp B/P (MAP) Pulse Ox O2 Delivery O2 Flow Rate FiO2 09/16/17 06:00 85 09/16/17 04:00 98.0 16 186/82 (116) 97 09/15/17 14:30 Room Air Intake and Output 09/16/17 09/16/17 09/17/17 08:00 16:00 00:00 Intake Total 100 ml Balance 100 ml Result Diagram: 09/16/17 0608 09/16/17 0608 Imaging Last Impressions Chest X-Ray 09/16/17 0000 Signed Impressions: Service Date/Time: Saturday, September 16, 2017 03:41 - CONCLUSION: No acute disease. Davion Hough MD Objective Remarks GENERAL: This is a 86-year-old female with an NG tube in her right nares no acute distress SKIN: Warm and dry. Well perfused HEAD: Atraumatic. Normocephalic. EYES: Pupils equal and round. No scleral icterus. No injection or drainage. ENT: No nasal bleeding or discharge. Mucous membranes pink and moist. NECK: Trachea midline. No JVD. CARDIOVASCULAR: Regular rate and rhythm. S1, S2 predose for without murmur RESPIRATORY: No accessory muscle use. Clear to auscultation. Breath sounds equal bilaterally. GASTROINTESTINAL: Abdomen soft, non-tender, nondistended. MUSCULOSKELETAL: Extremities without significant peripheral edema NEUROLOGICAL: Awake and alert. No obvious cranial nerve deficits. Motor grossly within normal limits. Five out of 5 muscle strength in the arms and legs. Normal speech. PSYCHIATRIC: Pleasantly confused Urinary Catheter: Yes Assessment to: Continue Mckinley insert reason: Prolonged Immobilization Vascular Central Line Catheter: No Assessment to: Continue A/P Assessment and Plan Neuro/Psych: Dementia disorder NOS Macular degeneration Depression/anxiety Chronic opioid use Holding donepezil 10 mg p.o. daily for Alzheimer dementia. To resume today Holding venlafaxine 150 mg p.o. daily for depression. Okay to resume today Holding pregabalin 100 mg p.o. twice daily for neuropathy. Okay to resume today Ofirmev 1 g IV every 8 hours as needed fever/pain 1 through 10 At home on hydrocodone/acetaminophen 5/325 1 tablet 3 times daily as needed CV: Essential hypertension Dyslipidemia Currently on one half normal saline with 20 mEq KCl at 84 cc an hour Initially holding amlodipine 5 mg daily and hydrochlorthiazide 25 mg daily for hypertension. Resume today Holding atorvastatin 10 mg daily for dyslipidemia. Resume in a.m. 12 As needed labetalol/hydralazine Nitropaste for hypertension Resp: History of asthma Nasal cannula to maintain saturations greater than or equal to 92% Incentive spirometry while awake As needed albuterol aerosols every 2 hours as needed dyspnea GI: Upper GI bleed History of gastric ulcers IBS Elevated AST Received pantoprazole 80 mg IV 1. Currently on drip at 8 mg an hour At home on pantoprazole 40 mg p.o. twice daily Holding dicyclomine 20 mg/home medication. Resume today 09/16 EGD 09/16 - 2 large ulcers in the antrum, no active bleeding, most likely the source of the bleed yesterday, biopsy was done Gastritis Normal endoscopy otherwise Resume ferrous sulfate 325 mg p.o. twice daily : Mckinley catheter if indicated for accurate I's and O's in a critically ill patient Endo: Hyperglycemia Hypothyroidism Sliding scale insulin with an Novulin N with Accu-Cheks every 6 hours to maintain euglycemia/low regimen Resume levothyroxine 50 mcg today 09/16. TSH is 1.8 Renal: Prerenal azotemia Monitor urine output Accurate I's and O's Avoid nephrotoxic drug Heme: Acute blood loss anemia Leukocytosis Thrombocytopenia H/H every 6 hours Type and cross for 2 to PRBCs Transfuse 1 unit PRBCs today. ID: Monitor for infection FEN: Hypernatremia Hypopotassemia Hypomagnesia Hypophosphatemia Replace electrolytes as clinically indicated Switch IV fluids to half-normal saline with 20 mg of KCl 84 mL an hour We will give 30 mmol potassium phosphorus, 40 mg potassium chloride p.o. 1 now and 2 g mag sulfate. MSK: Osteoporosis/arthritis PT evaluate and treat. Holding calcium/vitamin D/home medication Access- Utilize peripheral IV. Central line if indicated Prophylaxis -GI -pantoprazole -DVT -SCD/no pharmacological prophylaxis in light of upper GI bleed Level 2 follow-up Kingsley Steward MD Sep 16, 2017 08:36
[2017-09-16] MEDS ORDERED: POTASSIUM CHLORIDE 20 MEQ CONTROLLED RELEASE TAB PO ONE (09:00)
[2017-09-16] MEDS: DONEPEZIL HCL 23 MG TAB PO SCH (09:00)
[2017-09-16] MEDS ORDERED: NITROGLYCERIN 2% OINT 1 GM PACKET TOPICAL PRN (09:00)
[2017-09-16] MEDS ORDERED: LABETALOL HCL 100 MG/20 ML VIAL IV PUSH PRN (09:00)
[2017-09-16] MEDS ORDERED: CALCIUM GLUCONATE INJ 1 GM in DEXTROSE 5% IN WATER 100ML INJ 100 ML IV ONE ×2 (10:00)
[2017-09-16] MEDS ORDERED: DO NOT ADM ANY ANTICOAGULANT DRUGS PRN (10:15)
[2017-09-16] MEDS ORDERED: POTASSIUM PHOSPHATE INJ 30 MMOL in SODIUM CHLOR 0.9% 250 ML INJ 250 ML IV ONE (11:00)
[2017-09-16] MEDS: VENLAFAXINE HCL 75 MG TAB PO SCH (11:51)
[2017-09-16] MEDS: PANTOPRAZOLE SOD 40 MG DELAYED RELEASE TAB PO SCH (11:51)
[2017-09-16] MEDS: PREGABALIN 75 MG CAP PO SCH ×2 (11:51→20:18)
[2017-09-16] MEDS: FERROUS SULFATE 325 MG (65 MG ELEMENTAL IRON) TAB PO SCH (11:52)
[2017-09-16] MEDS: HYDROCHLOROTHIAZIDE 25 MG TAB PO SCH (11:52)
[2017-09-16] MEDS: DICYCLOMINE HCL 20 MG TAB PO SCH (11:52)
[2017-09-16] MEDS: amLODIPine BESYLATE 5 MG TAB PO SCH (11:53)
[2017-09-16] MEDS: MAGNESIUM SULFATE 1 GM PREMIX 100 ML IV SCH ×2 (11:56→13:36)
[2017-09-16] MEDS: 1/2 NS + KCL 20 MEQ INJ 1,000 ML IV SCH ×2 (11:56→21:25)
[2017-09-16] MEDS: SODIUM CHLORIDE 0.9% FLUSH 10 ML FLUSH IV FLUSH SCH ×2 (11:57→20:18)
[2017-09-16] MEDS ORDERED: LIDOCAINE HCL 1% PF 5 ML SYRINGE OTHER ONE (12:00)
[2017-09-16] MEDS ORDERED: PROPOFOL 200 MG/20 ML AMP IV ONE (12:00)
[2017-09-16 14:06] LABS: HEMATOCRIT 27.1 % (35.0-46.0); HEMOGLOBIN 8.7 GM/DL (11.6-15.3)
[2017-09-16] MEDS: hydrALAZINE HCL 20 MG/ML VIAL IV PUSH PRN (20:18)
[2017-09-16] MEDS: ATORVASTATIN 10 MG TAB PO SCH (20:18)
[2017-09-16 20:45] LABS: HEMATOCRIT 29.5 % (35.0-46.0); HEMOGLOBIN 9.8 GM/DL (11.6-15.3)
[2017-09-17] VITALS (12 sets, daily range): BP systolic 123–171; BP diastolic 56–78; PULSE 73–96; RESP 17–23; TEMP 98.1–99.3; O2SAT 97–100
[2017-09-17] MEDS: CHLORHEXIDINE GLUCONATE 2 % 1 PACK (2 CLOTHS) TOP SCH (00:09)
[2017-09-17] MEDS: INSULIN NovoLIN REGULAR SUPPLEMENTAL SCALE SQ SCH ×6 (06:00→20:17)
[2017-09-17] MEDS: PANTOPRAZOLE INJ 80 MG in SODIUM CHLORIDE 0.9% INJ 100 ML IV SCH (06:16)
[2017-09-17] MEDS: LEVOTHYROXINE SODIUM 50 MCG TAB PO SCH (06:17)
[2017-09-17 07:01] LABS: AUTOMATED NEUTROPHIL # 8.8 TH/MM3 (1.8-7.7); BASOPHIL # 0.1 TH/MM3 (0-0.2); BASOPHIL % 0.7 % (0.0-2.0); EOSINOPHIL % 0.3 % (0.0-4.0); HEMATOCRIT 29.1 % (35.0-46.0); LYMPH % 8.7 % (9.0-44.0); LYMPHOCYTE # 0.9 TH/MM3 (1.0-4.8); MEAN CELL VOLUME 89.7 FL (80.0-100.0); MEAN CORPUSCULAR HEMOGLOBIN 30.8 PG (27.0-34.0); MEAN CORPUSCULAR HGB CONC 34.3 % (32.0-36.0); MONOCYTE # 0.6 TH/MM3 (0-0.9); NEUT % 84.3 % (16.0-70.0); PLATELET COUNT 138 TH/MM3 (150-450); RED BLOOD COUNT 3.25 MIL/MM3 (4.00-5.30); RED CELL DISTRIBUTION WIDTH 14.9 % (11.6-17.2); WHITE BLOOD COUNT 10.4 TH/MM3 (4.0-11.0)
--- NOTE | 2017-09-17 07:12 | HHI.CCPN ---
Subjective Remarks/Hospital Course This is a 86-year-old female. Date of admission 09/15/2017. Past medical history includes prior GI bleed/gastric ulcers [address] [facility] in [place] in January 2017 for gastric ulcer, peripheral neuropathy, osteoarthritis/osteoporosis, bilateral cataracts, depression/anxiety, anemia, macular degeneration, chronic low back pain, hypertension, gastroesophageal reflux disease and asthma she presented originally to [place] ED after her daughter found her at home passed out in her mobile walker at that time she was diagnosed being covered with blood. GCS originally GCS was documented 3 but is currently at 14. Since Thursday, patient has been nauseous and "not feeling herself". She is also noted to have a melanotic stool. Pt also complaining of epigastric abdominal pain earlier, now resolved. Per the daughter, she was taking Aleve at the time, no longer on NSAIDs. Denies ETOH, steroid use and blood thinners. 09/16: Resting comfortably in bed in no acute distress. Status post EGD finding 2 nonbleeding gastric ulcers. Will transfuse 1 unit PRBCs today. Denies abdominal pain, chest pain or shortness of breath Subjective 09/17: Resting comfortably in bed in no acute distress. Hemoglobin remained stable. A.m. labs pending. Objective Vital Signs Date Time Temp Pulse Resp B/P (MAP) Pulse Ox O2 Delivery O2 Flow Rate FiO2 09/17/17 06:00 77 09/17/17 04:00 98.6 23 158/70 (99) 100 09/16/17 20:31 21 09/16/17 09:00 Room Air Intake and Output 09/17/17 09/17/17 09/18/17 08:00 16:00 00:00 Intake Total 606 ml Balance 606 ml Result Diagram: 09/17/17 0544 09/16/17 0608 Imaging Last Impressions Chest X-Ray 09/16/17 0000 Signed Impressions: Service Date/Time: Saturday, September 16, 2017 03:41 - CONCLUSION: No acute disease. Davion Hough MD Objective Remarks GENERAL: This is a 86-year-old female with an NG tube in her right nares no acute distress SKIN: Warm and dry. Well perfused HEAD: Atraumatic. Normocephalic. EYES: Pupils equal and round. No scleral icterus. No injection or drainage. ENT: No nasal bleeding or discharge. Mucous membranes pink and moist. NECK: Trachea midline. No JVD. CARDIOVASCULAR: Regular rate and rhythm. S1, S2 predose for without murmur RESPIRATORY: No accessory muscle use. Clear to auscultation. Breath sounds equal bilaterally. GASTROINTESTINAL: Abdomen soft, non-tender, nondistended. MUSCULOSKELETAL: Extremities without significant peripheral edema NEUROLOGICAL: Awake and alert. No obvious cranial nerve deficits. Motor grossly within normal limits. Five out of 5 muscle strength in the arms and legs. Normal speech. PSYCHIATRIC: Pleasantly confused Urinary Catheter: Yes Assessment to: Continue Mckinley insert reason: Prolonged Immobilization Vascular Central Line Catheter: No Assessment to: Continue A/P Assessment and Plan Neuro/Psych: Dementia disorder NOS Macular degeneration Depression/anxiety Chronic opioid use Resume donepezil 10 mg p.o. daily for Alzheimer dementia. Resume venlafaxine 150 mg p.o. daily for depression. Resume pregabalin 150 mg p.o. twice daily for neuropathy. Acetaminophen 650 mg p.o. every 6 hours as needed fever/pain 1 through 5 Hydrocodone/acetaminophen 5/321 tablet every 6 hours as needed pain 6 or 10 At home on hydrocodone/acetaminophen 5/325 1 tablet 3 times daily as needed CV: Essential hypertension Dyslipidemia Currently on one half normal saline with 20 mEq KCl at 84 cc an hour. Follow- up in a.m. laboratories Initially holding amlodipine 5 mg daily and hydrochlorthiazide 25 mg daily for hypertension. Resume 09/17 Holding atorvastatin 10 mg daily for dyslipidemia. Resume in a.m. 09/17 As needed labetalol/hydralazine Nitropaste for hypertension Resp: History of asthma Nasal cannula to maintain saturations greater than or equal to 92% Incentive spirometry while awake As needed albuterol aerosols every 2 hours as needed dyspnea GI: Upper GI bleed History of gastric ulcers IBS Elevated AST Advance diet per GI Currently on pantoprazole 40 mg daily At home on pantoprazole 40 mg p.o. twice daily Resumed dicyclomine 20 mg/home medication. EGD 09/16 - 2 large ulcers in the antrum, no active bleeding, most likely the source of the bleed yesterday, biopsy was done Gastritis Normal endoscopy otherwise : Mckinley catheter if indicated for accurate I's and O's in a critically ill patient Endo: Hyperglycemia Hypothyroidism Sliding scale insulin with an Novulin N with Accu-Cheks every before meals/at bedtime to maintain euglycemia/low regimen Resume levothyroxine 50 mcg today 09/16. TSH is 1.8 Renal: Prerenal azotemia Monitor urine output Accurate I's and O's Avoid nephrotoxic drug Heme: Acute blood loss anemia Leukocytosis Thrombocytopenia H/H every 6 hours Type and cross for 2 to PRBCs Transfuse 1 unit PRBCs 09/16 Resume ferrous sulfate 325 mg p.o daily ID: Monitor for infection FEN: Hypernatremia Hypopotassemia Hypomagnesia Hypophosphatemia Replace electrolytes as clinically indicated Switch IV fluids to half-normal saline with 20 mg of KCl 84 mL an hour A.m. laboratories 09/17 pending MSK: Osteoporosis/arthritis PT evaluate and treat. Holding calcium/vitamin D/home medication Access- Utilize peripheral IV. Central line if indicated Prophylaxis -GI -pantoprazole -DVT -SCD/no pharmacological prophylaxis in light of upper GI bleed Level 2 follow-up Stable from critical care medicine standpoint. Assign care to hospitalist team 09/18. Ryan to transfer from ICU Kingsley Steward MD Sep 17, 2017 07:12
[2017-09-17] MEDS ORDERED: PANTOPRAZOLE SODIUM 40 MG VIAL IV PUSH SCH (07:15)
[2017-09-17] MEDS ORDERED: ACETAMINOPHEN/HYDROcodone 325 MG/5 MG TAB PO PRN (07:15)
[2017-09-17 07:16] LABS: ALBUMIN 3.1 GM/DL (3.4-5.0); ALKALINE PHOSPHATASE 60 U/L (45-117); ALT (GPT) 30 U/L (10-53); AST (GOT) 38 U/L (15-37); BICARBONATE 25.6 MEQ/L (21.0-32.0); BLOOD UREA NITROGEN 24 MG/DL (7-18); CHLORIDE 110 MEQ/L (98-107); CREATININE 0.56 MG/DL (0.50-1.00); GLOMERULAR FILTRATION RATE 102 ML/MIN (>89); GLUCOSE,RANDOM 110 MG/DL (74-106); MAGNESIUM 2.1 MG/DL (1.5-2.5); PHOSPHORUS 1.8 MG/DL (2.5-4.9); SODIUM (NA) 142 MEQ/L (136-145); TOTAL BILIRUBIN ADULT 0.5 MG/DL (0.2-1.0); TOTAL PROTEIN 6.3 GM/DL (6.4-8.2)
[2017-09-17] MEDS: SODIUM CHLORIDE 0.9% FLUSH 10 ML FLUSH IV FLUSH SCH ×2 (08:31→20:18)
[2017-09-17] MEDS: ACETAMINOPHEN 325 MG TAB PO PRN ×2 (08:32→22:27)
[2017-09-17] MEDS: VENLAFAXINE HCL 75 MG TAB PO SCH (08:32)
[2017-09-17] MEDS: hydrALAZINE HCL 20 MG/ML VIAL IV PUSH PRN (08:32)
[2017-09-17] MEDS: FERROUS SULFATE 325 MG (65 MG ELEMENTAL IRON) TAB PO SCH (08:32)
[2017-09-17] MEDS: amLODIPine BESYLATE 5 MG TAB PO SCH (08:32)
[2017-09-17] MEDS: DICYCLOMINE HCL 20 MG TAB PO SCH (08:32)
[2017-09-17] MEDS: PREGABALIN 75 MG CAP PO SCH ×2 (08:33→20:19)
[2017-09-17] MEDS: DONEPEZIL HCL 23 MG TAB PO SCH (08:33)
[2017-09-17] MEDS: PANTOPRAZOLE SOD 40 MG DELAYED RELEASE TAB PO SCH (08:33)
[2017-09-17] MEDS: HYDROCHLOROTHIAZIDE 25 MG TAB PO SCH (08:33)
[2017-09-17] MEDS: 1/2 NS + KCL 20 MEQ INJ 1,000 ML IV SCH (08:34)
--- NOTE | 2017-09-17 11:30 | HHI.GIFU ---
Subjective Remarks Pt OOB to chair. Tolerating diet. Per RN no new bleeding. (Eda Trejo) Objective Vitals I&O Vital Signs Date Time Temp Pulse Resp B/P (MAP) Pulse Ox O2 Delivery O2 Flow Rate FiO2 09/17/17 10:00 91 09/17/17 08:00 93 09/17/17 08:00 98.4 93 19 171/74 (106) 99 09/17/17 06:00 77 09/17/17 04:00 75 09/17/17 04:00 98.6 75 23 158/70 (99) 100 09/17/17 02:00 92 09/17/17 00:00 96 09/17/17 00:00 98.8 96 23 134/63 (86) 99 09/16/17 22:00 90 09/16/17 20:31 100 21 09/16/17 20:00 98.9 85 24 189/84 (119) 100 09/16/17 20:00 86 09/16/17 18:15 98.1 81 18 174/77 98 09/16/17 18:00 80 09/16/17 17:00 75 09/16/17 16:00 98.2 76 17 171/74 (106) 99 09/16/17 16:00 76 09/16/17 15:45 98.0 79 18 159/60 99 09/16/17 15:28 98.7 72 20 170/70 99 09/16/17 15:00 77 09/16/17 14:00 91 09/16/17 13:00 74 09/16/17 12:00 76 09/16/17 12:00 98.0 76 25 160/72 (101) 98 I/O 09/16/17 09/16/17 09/16/17 09/17/17 09/17/17 09/17/17 07:00 15:00 23:00 07:00 15:00 23:00 Intake Total 100 ml 420 ml 2915 ml 606 ml Output Total 300 ml 3 ml Balance 100 ml 120 ml 2912 ml 606 ml Intake Oral 900 ml 50 ml IV Total 100 ml 20 ml 1570 ml 556 ml Packed Cells 400 ml Blood Product IV Normal Saline Flush 45 ml Other 400 ml Output Urine Total 300 ml Stool Total 3 ml # Voids 3 2 12 # Bowel Movements 2 4 Laboratory Laboratory Tests Test 09/16/17 12:52 09/16/17 19:44 09/17/17 05:44 Hemoglobin 8.7 9.8 10.0 Hematocrit 27.1 29.5 29.1 White Blood Count 10.4 Red Blood Count 3.25 Mean Corpuscular Volume 89.7 Mean Corpuscular Hemoglobin 30.8 Mean Corpuscular Hemoglobin Concent 34.3 Red Cell Distribution Width 14.9 Platelet Count 138 Mean Platelet Volume 10.0 Neutrophils (%) (Auto) 84.3 Lymphocytes (%) (Auto) 8.7 Monocytes (%) (Auto) 6.0 Eosinophils (%) (Auto) 0.3 Basophils (%) (Auto) 0.7 Neutrophils # (Auto) 8.8 Lymphocytes # (Auto) 0.9 Monocytes # (Auto) 0.6 Eosinophils # (Auto) 0.0 Basophils # (Auto) 0.1 CBC Comment DIFF FINAL Differential Comment Blood Urea Nitrogen 24 Creatinine 0.56 Random Glucose 110 Total Protein 6.3 Albumin 3.1 Calcium Level 8.0 Phosphorus Level 1.8 Magnesium Level 2.1 Alkaline Phosphatase 60 Aspartate Amino Transf (AST/SGOT) 38 Alanine Aminotransferase (ALT/SGPT) 30 Total Bilirubin 0.5 Sodium Level 142 Potassium Level 3.5 Chloride Level 110 Carbon Dioxide Level 25.6 Anion Gap 6 Estimat Glomerular Filtration Rate 102 Imaging Last Impressions Chest X-Ray 09/16/17 0000 Signed Impressions: Service Date/Time: Saturday, September 16, 2017 03:41 - CONCLUSION: No acute disease. Davion Hough MD Physical Exam HEENT: PERRL; normocephalic; atraumatic; no jaundice. CHEST: CTA CARDIAC: Regular rate and rhythm with no murmur gallop or rubs. ABDOMEN: Soft, nondistended, nontender; no hepatosplenomegaly; bowel sounds are present in all four quadrants. EXTREMITIES: No clubbing, cyanosis, or edema. SKIN: Normal; no rash; no jaundice. RETAIL FINANCIAL ANALYST: mildly confused (Eda Trejo) Assessment and Plan Plan Assessment: - GIB, symptoms appear to be upper GIB Complaining of coffee ground emesis that began today, also had a melanotic stool in the ER- states epigastric pain earlier today, now resolved. History of PUD- EGD done at [facility] in January 2017 revealed 2 ulcers, likely secondary to NSAIDs Denies blood thinners, ETOH, NSAIDs - Elevated AST of unclear significance- further work up can be done once patient is stabilized Patient was seen and examined Patient does not have active GI bleed at this point, hemoglobin stable, upper endoscopy was performed IMPRESSION: 2 large ulcers in the antrum, no active bleeding, most likely the source of the bleed yesterday, biopsy was done Gastritis Normal endoscopy otherwise 09/17/17 Doing well, no new bleeding. HH stable. tolerating diet. PLAN: ADA DIET Monitor H&H Protonix 40 mg daily Await biopsy results Okay to transfer to floor Avoid NSAIDs pt seen by myself and DR Ruiz and this note is on his behalf (Eda Trejo) Plan Patient was seen and examined, agree with above-noted, I had a discussion with her daughter about NSAIDs use, and her hemoglobin is stable at this time, will be transferred to the floor shortly, continue PPI (Mumtaz Ruiz MD) Eda Trejo Sep 17, 2017 11:30 Mumtaz Ruiz MD Sep 17, 2017 17:51
[2017-09-17] MEDS: ATORVASTATIN 10 MG TAB PO SCH (20:19)
[2017-09-18] MEDS: CHLORHEXIDINE GLUCONATE 2 % 1 PACK (2 CLOTHS) TOP SCH (04:00)
[2017-09-18] MEDS: LEVOTHYROXINE SODIUM 50 MCG TAB PO SCH (05:22)
[2017-09-18 08:00] VITALS: BP 167/75; PULSE 71; RESP 17; TEMP 98.6; O2SAT 99
[2017-09-18] MEDS: INSULIN NovoLIN REGULAR SUPPLEMENTAL SCALE SQ SCH ×2 (08:00→12:00)
[2017-09-18] MEDS: amLODIPine BESYLATE 5 MG TAB PO SCH (08:53)
[2017-09-18] MEDS: DICYCLOMINE HCL 20 MG TAB PO SCH (08:53)
[2017-09-18] MEDS: PANTOPRAZOLE SOD 40 MG DELAYED RELEASE TAB PO SCH (08:53)
[2017-09-18] MEDS: PREGABALIN 75 MG CAP PO SCH (08:53)
[2017-09-18] MEDS: HYDROCHLOROTHIAZIDE 25 MG TAB PO SCH (08:53)
[2017-09-18] MEDS: DONEPEZIL HCL 23 MG TAB PO SCH (08:54)
[2017-09-18] MEDS: FERROUS SULFATE 325 MG (65 MG ELEMENTAL IRON) TAB PO SCH (08:54)
[2017-09-18 08:56] LABS: HEMATOCRIT 26.7 % (35.0-46.0); HEMOGLOBIN 9.1 GM/DL (11.6-15.3); MEAN CELL VOLUME 90.6 FL (80.0-100.0); MEAN CORPUSCULAR HEMOGLOBIN 30.8 PG (27.0-34.0); MEAN PLATELET VOLUME 9.8 FL (7.0-11.0); PLATELET COUNT 139 TH/MM3 (150-450); RED BLOOD COUNT 2.95 MIL/MM3 (4.00-5.30); RED CELL DISTRIBUTION WIDTH 15.3 % (11.6-17.2); WHITE BLOOD COUNT 5.7 TH/MM3 (4.0-11.0)
[2017-09-18] MEDS: SODIUM CHLORIDE 0.9% FLUSH 10 ML FLUSH IV FLUSH SCH (08:57)
[2017-09-18] MEDS: VENLAFAXINE HCL 75 MG TAB PO SCH (09:00)
[2017-09-18 09:25] LABS: BICARBONATE 24.8 MEQ/L (21.0-32.0); CALCIUM 8.2 MG/DL (8.5-10.1); CREATININE 0.7 MG/DL (0.50-1.00)
[2017-09-18 12:00] VITALS: BP 138/65; PULSE 80; RESP 18; TEMP 98.8; O2SAT 98
[2017-09-18 12:48] VITALS: O2SAT 97
--- NOTE | 2017-09-18 13:24 | HHI.GIFU ---
Subjective Remarks Pt resting in bed, family at bedside. No bleeding. Pt has no GI complaints. (Eda Trejo) Objective Vitals I&O Vital Signs Date Time Temp Pulse Resp B/P (MAP) Pulse Ox O2 Delivery O2 Flow Rate FiO2 09/18/17 12:48 97 21 09/18/17 12:00 98.8 80 18 138/65 (89) 98 09/18/17 09:53 18 09/18/17 08:00 98.6 71 17 167/75 (105) 99 09/17/17 23:44 99.3 86 17 164/72 (102) 98 09/17/17 20:17 98.7 78 18 155/78 (103) 97 09/17/17 18:00 76 09/17/17 16:00 98.8 73 18 150/67 (94) 99 09/17/17 16:00 73 I/O 09/17/17 09/17/17 09/17/17 09/18/17 09/18/17 09/18/17 07:00 15:00 23:00 07:00 15:00 23:00 Intake Total 606 ml 480 ml 360 ml Balance 606 ml 480 ml 360 ml Intake Oral 50 ml 480 ml 360 ml IV Total 556 ml # Voids 12 5 3 # Bowel Movements 4 4 0 Laboratory Laboratory Tests Test 09/18/17 08:30 White Blood Count 5.7 Red Blood Count 2.95 Hemoglobin 9.1 Hematocrit 26.7 Mean Corpuscular Volume 90.6 Mean Corpuscular Hemoglobin 30.8 Mean Corpuscular Hemoglobin Concent 34.0 Red Cell Distribution Width 15.3 Platelet Count 139 Mean Platelet Volume 9.8 Blood Urea Nitrogen 24 Creatinine 0.70 Random Glucose 99 Calcium Level 8.2 Sodium Level 142 Potassium Level 3.3 Chloride Level 110 Carbon Dioxide Level 24.8 Anion Gap 7 Estimat Glomerular Filtration Rate 79 Imaging Last Impressions Chest X-Ray 09/16/17 0000 Signed Impressions: Service Date/Time: Saturday, September 16, 2017 03:41 - CONCLUSION: No acute disease. Davion Hough MD Physical Exam HEENT: PERRL; normocephalic; atraumatic; no jaundice. CHEST: CTA CARDIAC: RRR ABDOMEN: Soft, nondistended, nontender; no hepatosplenomegaly; bowel sounds are present in all four quadrants. EXTREMITIES: No clubbing, cyanosis, or edema. SKIN: Normal; no rash; no jaundice. [employer]WMAN: Alert (Eda Trejo) Assessment and Plan Plan Assessment: - GIB, symptoms appear to be upper GIB Complaining of coffee ground emesis that began today, also had a melanotic stool in the ER- states epigastric pain earlier today, now resolved. History of PUD- EGD done at [facility] in January 2017 revealed 2 ulcers, likely secondary to NSAIDs Denies blood thinners, ETOH, NSAIDs - Elevated AST of unclear significance- further work up can be done once patient is stabilized Patient was seen and examined Patient does not have active GI bleed at this point, hemoglobin stable, upper endoscopy was performed IMPRESSION: 2 large ulcers in the antrum, no active bleeding, most likely the source of the bleed yesterday, biopsy was done Gastritis Normal endoscopy otherwise 09/17/17 Doing well, no new bleeding. HH stable. tolerating diet. 09/18/17 doing well, no bleeding. mild drop HH. d/w family PLAN - bid protonix - await bx - BETSY - avoid NSAIDs - f/u with PCP for alternative pain medication options - notify GI of active bleeding - monitor HH pt seen by myself and DR Ruiz and this note is on his behalf (Eda Trejo) Plan Patient was seen and examined, agree with above note, no sign of active bleeding , patient would like to go home, tolerating diet, she will need EGD in 2 months , continue PPI, do H&H in few days to ensure stability (Mumtaz Ruiz MD) Eda Trejo Sep 18, 2017 13:24 Mumtaz Ruiz MD Sep 18, 2017 17:02
[2017-09-18] MEDS ORDERED: POTASSIUM CHLORIDE 20 MEQ CONTROLLED RELEASE TAB PO ONE (16:00)
--- NOTE | 2017-09-18 16:45 | HHI.FF ---
Face to Face Verification Diagnosis: (1) Upper GI bleed Physical Therapy Order: Evaluate and Treat Home Health Nursing Order: Nursing assessment with vital signs I have seen patient Marcie Morgan on 09/18/17. My clinical findings support the need for the requested home health care services because: Pt was evaluated by PT and the recommendations was rehab however daughter prefers that her mother be discharged home w home healthy, and patient agreeable w plan High risk of falls I certify that my clinical findings support that this patient is homebound because: Pt was evaluated by PT and the recommendations was rehab however daughter prefers that her mother be discharged home w home healthy, and patient agreeable w plan Unsteady gait/balance Shania Simms MD Sep 18, 2017 16:45
[2017-09-18] MEDS ORDERED: PANT40TA3 PO (16:46)
[2017-09-18] MEDS ORDERED: LEVO.05 PO (16:46)
--- NOTE | 2017-09-18 16:54 | HHI.DS ---
Discharge Summary Admission Date Sep 15, 2017 at 16:12 Discharge Date: Sep 18, 2017 Admitting Diagnosis Upper GI bleed, prerenal azotemia (1) Upper GI bleed ICD Code: K92.2 - Gastrointestinal hemorrhage, unspecified Diagnosis: Principal Status: Acute (2) Hypothyroidism ICD Code: E03.9 - Hypothyroidism, unspecified Diagnosis: Principal (3) Osteoporosis ICD Code: M81.0 - Age-related osteoporosis without current pathological fracture Diagnosis: Principal (4) Gastroesophageal reflux disease ICD Code: K21.9 - Gastro-esophageal reflux disease without esophagitis Diagnosis: Principal (5) Neuropathy ICD Code: G62.9 - Polyneuropathy, unspecified Diagnosis: Secondary (6) Hypertension ICD Code: I10 - Essential (primary) hypertension Diagnosis: Principal (7) Dementia ICD Code: F03.90 - Unspecified dementia without behavioral disturbance Diagnosis: Secondary (8) Depression ICD Code: F32.9 - Major depressive disorder, single episode, unspecified Diagnosis: Principal (9) Acute prerenal azotemia ICD Code: R79.89 - Other specified abnormal findings of blood chemistry Diagnosis: Principal Status: Acute (10) Hematemesis ICD Code: K92.0 - Hematemesis Diagnosis: Principal (11) Acute kidney injury ICD Code: N17.9 - Acute kidney failure, unspecified Diagnosis: Principal (12) Elevated AST (SGOT) ICD Code: R74.0 - Nonspecific elevation of levels of transaminase and lactic acid dehydrogenase [LDH] Diagnosis: Principal (13) Hyperglycemia ICD Code: R73.9 - Hyperglycemia, unspecified Diagnosis: Principal (14) Acute blood loss anemia ICD Code: D62 - Acute posthemorrhagic anemia Diagnosis: Principal (15) Melena ICD Code: K92.1 - Melena Diagnosis: Principal Procedures EGD showing 2 large ulcers in antrum, gastritis Brief History - From Admission This is a 86-year-old female. Date of admission 09/15/2017. Past medical history includes prior GI bleed/gastric ulcers 2 at [facility] in [place] in January 2017 for gastric ulcer, peripheral neuropathy, osteoarthritis/osteoporosis, bilateral cataracts, depression/anxiety, anemia, macular degeneration, chronic low back pain, hypertension, gastroesophageal reflux disease and asthma she presented originally to [place] ED after her daughter found her at home passed out in her mobile walker at that time she was diagnosed being covered with blood. GCS originally GCS was documented 3 but is currently at 14. Since Thursday, patient has been nauseous and "not feeling herself". She is also noted to have a melanotic stool. Pt also complaining of epigastric abdominal pain earlier, now resolved. Per the daughter, she was taking Aleve at the time, no longer on NSAIDs. Denies ETOH, steroid use and blood thinners. CBC/BMP: 09/18/17 0830 09/18/17 0830 Significant Findings Laboratory Tests Test 09/15/17 17:30 09/15/17 19:18 09/16/17 00:22 09/16/17 03:48 Hemoglobin 10.6 GM/DL (11.6-15.3) 10.1 GM/DL (11.6-15.3) Hematocrit 32.4 % (35.0-46.0) 31.1 % (35.0-46.0) Lactic Acid Level 2.2 mmol/L (0.4-2.0) 2.3 mmol/L (0.4-2.0) Activated Partial Thromboplast Time 23.8 SEC (24.3-30.1) Test 09/16/17 06:08 09/16/17 12:52 09/16/17 19:44 09/17/17 05:44 White Blood Count 13.3 TH/MM3 (4.0-11.0) Red Blood Count 2.66 MIL/MM3 (4.00-5.30) 3.25 MIL/MM3 (4.00-5.30) Hemoglobin 8.0 GM/DL (11.6-15.3) 8.7 GM/DL (11.6-15.3) 9.8 GM/DL (11.6-15.3) 10.0 GM/DL (11.6-15.3) Hematocrit 24.2 % (35.0-46.0) 27.1 % (35.0-46.0) 29.5 % (35.0-46.0) 29.1 % (35.0-46.0) Platelet Count 144 TH/MM3 (150-450) 138 TH/MM3 (150-450) Neutrophils (%) (Auto) 89.0 % (16.0-70.0) 84.3 % (16.0-70.0) Lymphocytes (%) (Auto) 4.8 % (9.0-44.0) 8.7 % (9.0-44.0) Neutrophils # (Auto) 11.8 TH/MM3 (1.8-7.7) 8.8 TH/MM3 (1.8-7.7) Lymphocytes # (Auto) 0.6 TH/MM3 (1.0-4.8) 0.9 TH/MM3 (1.0-4.8) Blood Urea Nitrogen 42 MG/DL (7-18) 24 MG/DL (7-18) Total Protein 5.2 GM/DL (6.4-8.2) 6.3 GM/DL (6.4-8.2) Albumin 2.6 GM/DL (3.4-5.0) 3.1 GM/DL (3.4-5.0) Calcium Level 6.5 MG/DL (8.5-10.1) 8.0 MG/DL (8.5-10.1) Phosphorus Level 2.2 MG/DL (2.5-4.9) 1.8 MG/DL (2.5-4.9) Sodium Level 151 MEQ/L (136-145) Potassium Level 3.2 MEQ/L (3.5-5.1) Chloride Level 122 MEQ/L (98-107) 110 MEQ/L (98-107) Carbon Dioxide Level 19.5 MEQ/L (21.0-32.0) Protein Corrected Calcium 7.4 MG/DL (8.5-10.1) Random Glucose 110 MG/DL (74-106) Aspartate Amino Transf (AST/SGOT) 38 U/L (15-37) Test 09/18/17 08:30 Red Blood Count 2.95 MIL/MM3 (4.00-5.30) Hemoglobin 9.1 GM/DL (11.6-15.3) Hematocrit 26.7 % (35.0-46.0) Platelet Count 139 TH/MM3 (150-450) Blood Urea Nitrogen 24 MG/DL (7-18) Calcium Level 8.2 MG/DL (8.5-10.1) Potassium Level 3.3 MEQ/L (3.5-5.1) Chloride Level 110 MEQ/L (98-107) Estimat Glomerular Filtration Rate 79 ML/MIN (>89) Imaging Last Impressions Chest X-Ray 09/16/17 0000 Signed Impressions: Service Date/Time: Saturday, September 16, 2017 03:41 - CONCLUSION: No acute disease. Davion Hough MD PE at Discharge GENERAL: This is a 86-year-old female sitting up in bed, appears comfortable, smiling CARDIOVASCULAR: Regular rate and rhythm. RESPIRATORY: No accessory muscle use. Clear to auscultation. Breath sounds equal bilaterally. GASTROINTESTINAL: Abdomen soft, non-tender, nondistended. MUSCULOSKELETAL: Extremities without significant peripheral edema NEUROLOGICAL: Awake and alert. Normal speech. Pt update on day of discharge Pt feeling well. good appetite. No new bleed. No nausea or vomiting. No chest pain/sob Hospital Course Pt was admitted for Upper GI bleed. She does have a hx of gastric ulcers. She is s/p EGD which showed 2 large ulcers in the antrum w no active bleeding and gastritis. I spoke w Dr. Ruiz and he has cleared pt to be discharged. Monitor H&H as an outpatient. Recommendations is for protonix BID. Resumed dicyclomine 20 mg/home medication. Pt Condition on Discharge: Stable Discharge Disposition: Disch w/ Home Health Serv Discharge Time: > 30 minutes Discharge Instructions DIET: Follow Instructions for: Heart Healthy Diet Activities you can perform: Regular-No Restrictions Follow up Referrals: Gastroenterology - 2 Weeks PCP Follow-up - 1 Week New Orders: CBC WITH DIFF - 2-3 Days New Medications: Levothyroxine (Synthroid) 50 Mcg Tab 50 MCG PO DAILY@0600, #30 TAB Pantoprazole (Pantoprazole) 40 Mg Tab 40 MG PO BID, #60 TAB Continued Medications: Atorvastatin (Lipitor) 10 Mg Tab 10 MG PO HS, TAB Calcium Carbonate-Cholecalcife (Caltrate 600+D) + Tab 1 TAB PO DAILY, TAB Dicyclomine HCl (Bentyl) 20 Mg Tab 20 MG PO DAILY, TAB Docusate Calcium (Stool Softener) 240 Mg Cap 1 CAP PO HS Donepezil Hydrochloride (Aricept) 23 Mg Tab 23 MG PO DAILY, TAB Ferrous Sulfate (Ferrous Sulfate) 325 Mg Tab 325 MG PO DAILY, TAB Hydrochlorothiazide (Hctz) 25 Mg Tab 25 MG PO DAILY, TAB Hydrocodone-Acetaminophen 5-325 mg ([place] 5-325 mg) 325 Mg/5 Mg Tab 1 TAB PO TID PRN for PAIN, TAB Norvasc (Norvasc) 5 Mg Tab 5 MG PO DAILY, TAB Potassium Chloride (Klor-Con) 20 Meq Pow 20 MEQ PO DAILY, POW *DISSOLVE POWDER IN 4 OUNCES OF WATER* Pregabalin (Lyrica) 150 Mg Cap 150 MG PO BID, CAP Venlafaxine Hcl (Effexor) 100 Mg Tab 150 MG PO DAILY, TAB Discontinued Medications: Omeprazole (Hm Omeprazole) 20 Mg Tab 20 MG PO BID, TAB Shania Simms MD Sep 18, 2017 16:54
[2017-09-18] MEDS ORDERED: PANTOPRAZOLE SOD 40 MG DELAYED RELEASE TAB PO SCH (21:00)
== END 2017-09-18 19:39 | disposition home health service (06) | DRG 378 ==
LOC: NEPC 14:08 → NEDA 16:12 → HIMN 17:15 → N06B 09-17 18:32
PROVIDERS: ADMIT Family Medicine; ATTEND Family Medicine
PROC: 30233N1 Transfusion of Nonautologous Red Blood Cells into Peripheral Vein, Percutaneous Approach (ICD-10-PCS; 2017-09-16)
PROC: 0DB78ZX Excision of Stomach, Pylorus, Via Natural or Artificial Opening Endoscopic, Diagnostic (ICD-10-PCS; principal; 2017-09-16 08:10)
DX: K25.4 Chronic or unspecified gastric ulcer with hemorrhage (principal); N17.9 Acute kidney failure, unspecified; E87.0 Hyperosmolality and hypernatremia; D62 Acute posthemorrhagic anemia; D69.6 Thrombocytopenia, unspecified; G30.9 Alzheimer's disease, unspecified; E83.42 Hypomagnesemia; E83.39 Other disorders of phosphorus metabolism; F02.80 Dementia in other diseases classified elsewhere, unspecified severity, without behavioral disturbance, psychotic disturbance, mood disturbance, and anxiety; G62.9 Polyneuropathy, unspecified; J45.909 Unspecified asthma, uncomplicated; K21.9 Gastro-esophageal reflux disease without esophagitis; I10 Essential (primary) hypertension; R73.9 Hyperglycemia, unspecified; E78.5 Hyperlipidemia, unspecified; K58.9 Irritable bowel syndrome, unspecified; E87.6 Hypokalemia; R55 Syncope and collapse; R40.2432 Glasgow coma scale score 3-8, at arrival to emergency department; D72.829 Elevated white blood cell count, unspecified; M19.90 Unspecified osteoarthritis, unspecified site; M81.0 Age-related osteoporosis without current pathological fracture; M54.5 Low back pain; G89.29 Other chronic pain; H35.30 Unspecified macular degeneration; K29.70 Gastritis, unspecified, without bleeding; F32.9 Major depressive disorder, single episode, unspecified; F40.240 Claustrophobia; Z79.891 Long term (current) use of opiate analgesic; Z88.0 Allergy status to penicillin; Z96.641 Presence of right artificial hip joint
CPT/HCPCS: 36430; 71045; 80048; 80053; 82948; 83605; 83735; 84100; 84443; 85014; 85018; 85025; 85027; 85610; 85730; 86850; 86900; 86901; 86920; 87641; 88305; 88312; 94150; 96365; 96366; 96375; C9113; J0131; J0360; J0610; J2405; J3475; J3480; J7030; J7050; P9016

== ENCOUNTER 2018-04-02 13:41 | Inpatient (IN) ==
[2018-04-02] MEDS ORDERED: Sod Chloride 0.9% Inj 1,000 ML IV.SIG ONE ×2 (14:03→16:01)
--- NOTE | 2018-04-02 14:18 | ED ---
HPI General Chief Complaint: Altered Mental Status Stated Complaint: Altered Mental Status Complaint Time Seen by Provider: 04/02/18 13:50 Source: patient and family Mode of arrival: EMS Limitations: altered mental status History of Present Illness HPI narrative: 87-year-old female with PMH of HTN, dementia, anemia presents the ED via EMS for evaluation of altered mental status. Her daughter is at bedside and provides the history. The patient is normally ambulatory with a walker, able to do small chores and care for her own ADLs. She lives with her daughter. The daughter states that 4 nights ago she hurt her mother calling out , went into the bathroom and the patient was "slumped over" on the toilet. She was helped back to bed. The next day she was tremulous, unable to feed herself. Daughter states that the patient's voice has seemed a little slurred and the patient's speech has been a little halting. Today the patient is somnolent, arouses to voice. She is alert to self and situation. She follows commands. She denies any pain, dizziness, headache. The daughter states that the mother has not had any complaints but states that she felt feverish and called EMS to bring her to the ED. Related Data Home Medications Medication Instructions Recorded Confirmed atorvastatin [Lipitor] 10 mg PO DAILY 04/02/18 04/02/18 calcium carbonate-vitamin D3 1 tab PO DAILY 04/02/18 04/02/18 [Calcium with Vitamin D] donepezil [Aricept] 23 mg PO DAILY 04/02/18 04/02/18 ferrous sulfate 325 mg PO DAILY 04/02/18 04/02/18 hydrochlorothiazide 25 mg PO DAILY 04/02/18 04/02/18 hydrocodone-acetaminophen 1 tab PO QID PRN 04/02/18 04/02/18 levothyroxine 50 mcg PO DAILY 04/02/18 04/02/18 montelukast 10 mg PO QPM 04/02/18 04/02/18 pantoprazole 40 mg PO BID 04/02/18 04/02/18 pregabalin [Lyrica] 150 mg PO BID 04/02/18 04/02/18 venlafaxine [Effexor XR] 150 mg PO DAILY 04/02/18 04/02/18 Allergies Allergy/AdvReac Type Severity Reaction Status Date / Time penicillin G Allergy Severe TONGUE/ Verified 04/02/18 13:55 FACIAL SWELLING etodolac AdvReac Severe ANXIETY, Verified 04/02/18 13:55 AGITATION zolpidem AdvReac Severe HALLUCINATI Verified 04/02/18 13:55 ONS Review of Systems ROS: all other systems reviewed are negative [facility] Medical History Medical History Anemia (Acute) Dementia (Acute) HBP (high blood pressure) (Acute) Hypothyroidism (Acute) Surgical History Surgical History History of hip replacement (Acute) Hx of cholecystectomy (Acute) Social History Social History Substance History: No History of Abuse Second Hand Smoke Exposure: No Smoking Status: Never smoker How Often Do You Have a Drink Containing Alcohol: Never Recent Travel in [facility] within the Last 8 Weeks: No Recent Out of Country Travel within the Last 8 Weeks: No Exam Narrative Exam Narrative: GENERAL: Well-nourished, well-developed elderly white female in no acute distress. SKIN: Focused skin assessment warm/dry. HEAD: Atraumatic. Normocephalic. EYES: Pupils equal and round. No scleral icterus. No injection or drainage. ENT: No nasal bleeding or discharge. Mucous membranes pink and moist. NECK: Trachea midline. No JVD. CARDIOVASCULAR: Regular rate and rhythm. No murmur appreciated. RESPIRATORY: No accessory muscle use. Clear to auscultation. Breath sounds equal bilaterally. GASTROINTESTINAL: Abdomen soft, non-tender, nondistended. Hepatic and splenic margins not palpable. MUSCULOSKELETAL: No obvious deformities. No clubbing. No cyanosis. No edema. NEUROLOGICAL: Somnolent, arouses to voice, follows commands. No obvious cranial nerve deficits. Motor grossly within normal limits. Slurred speech. PSYCHIATRIC: Unable to assess. Course Initial Documented Vital Signs Temperature 98.8 F 04/02/18 13:55 Pulse Rate 94 H 04/02/18 13:55 Respiratory Rate 17 04/02/18 13:55 Blood Pressure 155/71 H 04/02/18 13:55 Pulse Oximetry 97 04/02/18 13:55 Last Documented Vital Signs Temperature 98.9 F 04/02/18 17:24 Pulse Rate 105 H 04/02/18 17:24 Respiratory Rate 19 04/02/18 17:24 Blood Pressure 154/71 H 04/02/18 17:24 Pulse Oximetry 99 04/02/18 17:24 Medical Decision Making GARY Attestation GARY supervised visit: Yes Attestation: I, Dr. Michelle, have reviewed the advance practice practitioner's documentation and am in agreement, met with the patient face to face, made the diagnosis, and the medical decision making was done by me. *My assessment and Findings: This is an elderly lady who lives at home who comes in with a 2 or 3-day history of altered mental status. The patient's family member reports that this is her usual when she has a urinary tract infection. Her evaluation is compatible with urosepsis. Please see Marissa Leyva PA-C's note for a more detailed H&P, final diagnosis and disposition MDM Narrative Medical decision making narrative: 87-year-old female with PMH of HTN, dementia , anemia presents the ED via EMS for evaluation of altered mental status. Her daughter is at bedside and provides the history. The daughter states that 4 nights ago she found the patient was "slumped over" on the toilet. The next day she was tremulous, unable to feed herself. Daughter states that the patient 's voice has seemed a little slurred and the patient's speech has been a little halting. Patient's afebrile on arrival, pulse in the 90s, BP 155/71, O2 sats 95 on room air. She is somnolent on exam but she arouses to voice, follows commands and is able to provide a little history. She does seem to have slurred speech but no other focal neuro deficits. IV was established. Patient was administered a liter of normal saline. Recheck of the patient's temperature revealed temp of 103. Sepsis workup was initiated. Lactic acid and cultures were drawn. Patient was administered rectal Tylenol, another 1.5L of normal saline. EKG without acute findings. CXR without acute findings. Cardiac enzymes negative x1. There is a leukocytosis of 12.6 and creatinine of 1.71 with BUN of 33. Lactic acid 4.8. UA nitrate positive, 115 WBCs, many WBC clumps and many bacteria. Patient was initiated on Azactam and gentamicin. CT of the head with a nonspecific finding prompted MR that revealed a 7.5 mm acute/ subacute lacunar infarct in the left basal ganglia without mass-effect. I discussed the results of the workup with the patient's family at bedside. They are agreeable to admission. Consult placed with the neurology service. I spoke with Dr. Mora who agrees to accept the patient to the medicine service. Please see medicine notes for disposition. Medical Screen Exam Complete: Yes Emergency Medical Condition: Yes Differential Diagnosis Differential Diagnosis: PNA versus UTI versus ACS versus ICH versus other Lab Data Result diagrams: 04/02/18 14:11 04/02/18 14:11 Lab Results 04/02/18 04/02/18 04/02/18 Range/Units 14:11 14:11 14:11 WBC 12.6 H (4.0-11.0) th/mm3 RBC 4.45 (4.00-5.30) mil/mm3 Hgb 13.8 (11.6-15.3) gm/dL Hct 41.2 (35.0-46.0) % MCV 92.6 (80.0-100.0) fL MCH 30.9 (27.0-34.0) pg MCHC 33.4 (32.0-36.0) % RDW 23.6 H (11.6-17.2) % Plt Count 124 L (150-450) th/mm3 MPV 9.0 (7.0-11.0) fL Prelim Diff (Auto) Slide review pending Neut % (Auto) 87.2 H (16.0-70.0) % Lymph % (Auto) 4.3 L (9.0-44.0) % [place] % (Auto) 8.2 H (0.0-8.0) % Eos % (Auto) 0.1 (0.0-4.0) % Baso % (Auto) 0.2 (0.0-2.0) % Neut # (Auto) 11.0 H (1.8-7.7) th/mm3 Lymph # (Auto) 0.5 L (1.0-4.8) th/mm3 [place] # (Auto) 1.0 H (0.0-0.9) th/mm3 Eos # (Auto) 0.0 (0.0-0.4) th/mm3 Baso # (Auto) 0.0 (0.0-0.2) th/mm3 WBC Differential . Diff Scan Auto diff confirmed Differential Comment . Platelet Estimate Low L (Normal) Platelet Morphology Enlarged H (Normal) Ovalocytes 1+ H (None) PT 11.3 (9.8-11.6) sec INR 1.1 Ratio Sodium 139 (136-145) meq/L Potassium 4.2 (3.5-5.1) meq/L Chloride 101 (98-107) meq/L Carbon Dioxide 29.4 (21.0-32.0) meq/L Anion Gap 9 (5-15) meq/L BUN 39 H (7-18) mg/dL Creatinine 1.71 H (0.50-1.00) mg/dL Estimated GFR 28 L (>89) mL/min Random Glucose 104 (74-106) mg/dL Lactic Acid (0.4-2.0) mmol/L Calcium 8.6 (8.5-10.1) mg/dL Magnesium 2.7 H (1.5-2.5) mg/dL Total Bilirubin 0.7 (0.2-1.0) mg/dL AST 37 (15-37) U/L ALT 30 (10-53) U/L Alkaline Phosphatase 83 (45-117) U/L Troponin I 0.05 (0.02-0.05) ng/mL Total Protein 7.0 (6.4-8.2) g/dL Albumin 3.0 L (3.4-5.0) g/dL TSH 1.360 (0.358-3.740) uIU/mL Urine Color (Yellw/Straw) Urine Clarity (Clear) Urine pH (5.0-8.5) Ur Specific [place] (1.002-1.035) Urine Protein (Neg-Trace) mg/dL Urine Glucose (UA) (Negative) mg/dL Urine Ketones (Negative) mg/dL Urine Occult Blood (Negative) Urine Nitrate (Negative) Urine Bilirubin (Negative) Urine Urobilinogen (Less than 2) mg/dL Ur Leukocyte Esterase (Negative) Urine RBC (0-3) /hpf Urine WBC (0-5) /hpf Urine WBC Clumps (None) Urine Bacteria (None) /hpf Granular Casts (None) /lpf Micro UA Comment Ur Microscopic Review Urine Culture Comments 04/02/18 04/02/18 Range/Units 15:45 16:20 WBC (4.0-11.0) th/mm3 RBC (4.00-5.30) mil/mm3 Hgb (11.6-15.3) gm/dL Hct (35.0-46.0) % MCV (80.0-100.0) fL MCH (27.0-34.0) pg MCHC (32.0-36.0) % RDW (11.6-17.2) % Plt Count (150-450) th/mm3 MPV (7.0-11.0) fL Prelim Diff (Auto) Neut % (Auto) (16.0-70.0) % Lymph % (Auto) (9.0-44.0) % [place] % (Auto) (0.0-8.0) % Eos % (Auto) (0.0-4.0) % Baso % (Auto) (0.0-2.0) % Neut # (Auto) (1.8-7.7) th/mm3 Lymph # (Auto) (1.0-4.8) th/mm3 [place] # (Auto) (0.0-0.9) th/mm3 Eos # (Auto) (0.0-0.4) th/mm3 Baso # (Auto) (0.0-0.2) th/mm3 WBC Differential Diff Scan Differential Comment Platelet Estimate (Normal) Platelet Morphology (Normal) Ovalocytes (None) PT (9.8-11.6) sec INR Ratio Sodium (136-145) meq/L Potassium (3.5-5.1) meq/L Chloride (98-107) meq/L Carbon Dioxide (21.0-32.0) meq/L Anion Gap (5-15) meq/L BUN (7-18) mg/dL Creatinine (0.50-1.00) mg/dL Estimated GFR (>89) mL/min Random Glucose (74-106) mg/dL Lactic Acid 4.8 H* (0.4-2.0) mmol/L Calcium (8.5-10.1) mg/dL Magnesium (1.5-2.5) mg/dL Total Bilirubin (0.2-1.0) mg/dL AST (15-37) U/L ALT (10-53) U/L Alkaline Phosphatase (45-117) U/L Troponin I (0.02-0.05) ng/mL Total Protein (6.4-8.2) g/dL Albumin (3.4-5.0) g/dL TSH (0.358-3.740) uIU/mL Urine Color Yellow (Yellw/Straw) Urine Clarity Cloudy H (Clear) Urine pH 5.0 (5.0-8.5) Ur Specific [place] 1.016 (1.002-1.035) Urine Protein 100 H (Neg-Trace) mg/dL Urine Glucose (UA) Negative (Negative) mg/dL Urine Ketones Trace H (Negative) mg/dL Urine Occult Blood Moderate H (Negative) Urine Nitrate Positive H (Negative) Urine Bilirubin Negative (Negative) Urine Urobilinogen 4 or greater (Less than 2) mg/dL Ur Leukocyte Esterase Large H (Negative) Urine RBC 35 H (0-3) /hpf Urine WBC 115 H (0-5) /hpf Urine WBC Clumps Many H (None) Urine Bacteria Many H (None) /hpf Granular Casts 12 (None) /lpf Micro UA Comment Cath-culture ind Ur Microscopic Review Not Reportable Urine Culture Comments Cath-cult indicated Imaging Data Radiologist's impression: Chest X-Ray 04/02/18 14:03 CONCLUSION: Negative examination. Head CT 04/02/18 14:03 CONCLUSION: 1. Atrophy and white matter disease. 2. Age indeterminate small focus of low density in the left basal ganglia measuring 1.1 cm. MRI may be helpful for further evaluation. . Head MRI 04/02/18 15:09 CONCLUSION: 1. Small acute to subacute lacunar type infarct involving the left basal ganglia with restricted diffusion. 2. No evidence of hemorrhage or mass effect. 3. Atrophy and chronic small vessel ischemic changes. ECG Data Attestation: I personally reviewed and interpreted this ECG as follows: Interpretation: EKG rate 95, sinus rhythm with occasional PVCs. AR interval 220 ms, QRS 100 ms, QTC [address] changes. Discharge Plan Discharge Disposition Patient Disposition: 30 Still Patient Physicians Team ED Provider: Yamel Michelle ED Midlevel Provider: Marissa Leyva Primary Care Provider: UNKNOWN, Attending Provider: Mary Lou Mora Other Providers: Abelardo Mondragon ; Alex Mclean Status ED Status: Admitted Patient
--- NOTE | 2018-04-02 14:33 | CT ---
EXAM DATE: 04/02/2018 2:30 PM EDT AGE/SEX: 87 years / Female INDICATIONS: Altered mental status. CLINICAL DATA: This is the patient's initial encounter. Patient reports that signs and symptoms have been present for 1 day and indicates a pain score of 0/10. MEDICAL/SURGICAL HISTORY: Hypertension. Dementia. Cholecystectomy. RADIATION DOSE: 56.35 CTDI (mGy) COMPARISON: No prior exams available for comparison. TECHNIQUE: CT of the head without contrast. Using automated exposure control and adjustment of the mA and/or kV according to patient size, radiation dose was kept as low as reasonably achievable to ob tain optimal diagnostic quality images. DICOM format image data is available electronically for revi ew and comparison. FINDINGS: Atherosclerotic calcifications of the carotid and vertebral arteries. Mild atrophy. Patchy and conflu ent diminished density in the bilateral centrum semiovale and periventricular white matter identified , most characteristic of chronic microvascular ischemic disease. There is an area of low density in t he left basal ganglia posteriorly which is age indeterminate for possible area of ischemia. There is no hemorrhage or mass. No fractures. CONCLUSION: 1. Atrophy and white matter disease. 2. Age indeterminate small focus of low density in the left basal ganglia measuring 1.1 cm. MRI may be helpful for further evaluation. . Electronically signed by: Brooks Burnette MD 04/02/2018 2:31 PM EDT
[2018-04-02 14:50] LABS: Baso % (Auto) 0.2 % (0.0-2.0); Eos % (Auto) 0.1 % (0.0-4.0); Hematocrit 41.2 % (35.0-46.0); Hemoglobin 13.8 gm/dL (11.6-15.3); Lymph # (Auto) 0.5 th/mm3 (1.0-4.8); Lymph % (Auto) 4.3 % (9.0-44.0); Mean Corpuscular HGB Conc 33.4 % (32.0-36.0); Mean Corpuscular Hemoglobin 30.9 pg (27.0-34.0); Mean Corpuscular Volume 92.6 fL (80.0-100.0); Mono % (Auto) 8.2 % (0.0-8.0); Neut % (Auto) 87.2 % (16.0-70.0); Platelet Count 124 th/mm3 (150-450); Red Blood Count 4.45 mil/mm3 (4.00-5.30); Red Cell Distribution Width 23.6 % (11.6-17.2); White Blood Count 12.6 th/mm3 (4.0-11.0)
[2018-04-02 14:53] LABS: INR 1.1 Ratio; Prothrombin Time 11.3 sec (9.8-11.6)
--- NOTE | 2018-04-02 15:12 | XR ---
EXAM DATE: 04/02/2018 2:50 PM EDT AGE/SEX: 87 years / Female INDICATIONS: Fever. CLINICAL DATA: This is the patient's initial encounter. Patient reports that signs and symptoms have been present for 1 day and indicates a pain score of Nonresponsive. MEDICAL/SURGICAL HISTORY: . Hypertension. Dementia. . Cholecystectomy. COMPARISON: [facility] [place], CHEST SINGLE AP, 09/16/2017. . FINDINGS: A single AP view of the chest demonstrates the lungs to be symmetrically aerated without evidence of mass, infiltrate or effusion. The cardiomediastinal contours are unremarkable. Osseous structures a re intact. CONCLUSION: Negative examination. Electronically signed by: Brooks Burnette MD 04/02/2018 3:11 PM EDT
[2018-04-02 15:19] LABS: Alkaline Phosphatase 83 U/L (45-117); Troponin I 0.05 ng/mL (0.02-0.05)
[2018-04-02 15:21] LABS: Ovalocytes 1+
[2018-04-02 15:36] LABS: Alanine Aminotransferase 30 U/L (10-53); Anion Gap 9 meq/L (5-15); Aspartate Aminotransferase 37 U/L (15-37); Blood Urea Nitrogen 39 mg/dL (7-18); Calcium 8.6 mg/dL (8.5-10.1); Carbon Dioxide 29.4 meq/L (21.0-32.0); Chloride 101 meq/L (98-107); Glomerular Filtration Rate 28 mL/min (>89); Glucose,Random 104 mg/dL (74-106); Magnesium 2.7 mg/dL (1.5-2.5); Potassium 4.2 meq/L (3.5-5.1); Sodium 139 meq/L (136-145)
[2018-04-02] MEDS ORDERED: Acetaminophen 650 MG Supp RECTAL ONE (15:58)
[2018-04-02 16:00] LABS: Bacteria,Urine Many /hpf; Bilirubin,Urine Negative (Negative); Clarity,Urine Cloudy (Clear); Glucose,Urine (UA) Negative (Negative); Leukocyte Esterase,Urine Large (Negative); Nitrite,Urine Positive (Negative); Specific Gravity,Urine 1.016 (1.002-1.035); Urobilinogen,Urine 4 or Greater mg/dL (Less than 2)
[2018-04-02 16:07] LABS: Color,Urine Yellow (Yellw/Straw)
[2018-04-02] MEDS ORDERED: SODIUM CHLOR 0.9% IV.SIG ONE ×2 (17:19→18:00)
[2018-04-02] MEDS ORDERED: GENTAMICIN IV.SIG ONE ×2 (17:19→18:00)
--- NOTE | 2018-04-02 17:25 | MR ---
EXAM DATE: 04/02/2018 5:15 PM EDT AGE/SEX: 87 years / Female INDICATIONS: Patient with altered mental status who is unconscious. Patient had an abnormal head CT d emonstrating an age indeterminate small focus of low density in the left basal ganglia. CLINICAL DATA: This is the patient's initial encounter. Patient reports that signs and symptoms have been present for 1 day and indicates a pain score of 0/10. MEDICAL/SURGICAL HISTORY: Hypertension. Hypercholesterolemia. Cholecystectomy. Hip replacement . COMPARISON: [facility] [place], CT HEAD W/O CONTRAST, 04/02/2018. . TECHNIQUE: Multiplanar, multisequence examination of the brain was performed without contrast. FINDINGS: Cerebrum: The ventricles are normal for age. No evidence of midline shift, mass lesion, hemorrhage or acute infarction. There is a small old lacunar infarcts in the basal ganglia. No extraaxial fluid collections are seen. The pituitary gland and suprasellar cistern are normal in configuration. White Matter: FLAIR weighted images demonstrate increased signal noted periventricular white matter and centrum semiovale characteristic chronic small vessel ischemic change. Posterior Fossa: The cerebellum and brainstem are intact. The 4th ventricle is midline. The cerebel lopontine angle is unremarkable. The cerebellar tonsils are normal in position. Diffusion Imaging: The echoplanar weighted images demonstrate a small focal area of restricted diffu danica involving the left basal ganglia measuring up to approximately 7 x 5 mm in size which correspond s to the abnormality seen on the CT. Extracranial: The visualized portions of the orbits and paranasal sinuses are unremarkable. CONCLUSION: 1. Small acute to subacute lacunar type infarct involving the left basal ganglia with restricted dif fusion. 2. No evidence of hemorrhage or mass effect. 3. Atrophy and chronic small vessel ischemic changes. Electronically signed by: Tra Humphrey MD 04/02/2018 5:23 PM EDT
[2018-04-02] MEDS ORDERED: Sodium Chlor 0.9% Inj 500 ML IV.SIG ONE (18:14)
[2018-04-02] MEDS ORDERED: Dextrose 50% in Water 50 ML Vial IV.PUSH PRN (18:36)
[2018-04-02] MEDS ORDERED: Enoxaparin Inj 40 MG/0.4 ML Syringe SQ SCH (18:45)
--- NOTE | 2018-04-02 21:27 | P.HPIM ---
History of Present Illness Service: [facility] Primary Care Physician: UNKNOWN Chief Complaint: CVA History of Present Illness: 87-year-old female with a history of hypertension, dementia and anemia was brought to the ED for evaluation of altered mental status. Patient is oriented x1, to self so ROS is limited, daughter is currently not at bedside, but was when the patient was in the ER and was able to provide history. Apparently 4 days ago patient was slumped over on the toilet and was taken back to bed and since then she has been unable to care for herself has had slurred speech and has been more confused than normal. Per the ER physician daughter stated that the patient felt feverish at home but did not complain of any pain, shortness of breath, dizziness or headaches. Upon examination patient is very sleepy, oriented x1, and does not follow many commands. Inpatient Certification: I certify that the inpatient services were ordered in accordance with Medicare regulations governing the order. This includes certification that hospital inpatient services are reasonable and necessary and in the case of services not specified as inpatient-only under 42 CFR 419.22(n), that they are appropriately provided as inpatient services in accordance to with the 2-midnight benchmark under 43 CFR 412.3(e) Estimated Total Length of Stay (Days): 4 Plans for Post Hospital Care: Not yet determined Review of Systems unobtainable due to mental status PMFSH - History History Provided By: Family Member - Medical History Medical History: Medical History (Last Reviewed 04/02/18 @ 23:26 by KULDEEP Langston) Anemia Dementia HTN (hypertension) Hypothyroidism - Surgical History Surgical History: Surgical History (Last Reviewed 04/02/18 @ 23:26 by KULDEEP Langston) History of hip replacement Hx of cholecystectomy - Family History Family History: Family History (Last Updated 04/02/18 @ 23:27 by KULDEEP Langston) Other Family history unknown - Social History I have reviewed the patient's Social History: Yes - Tobacco History Second Hand Smoke Exposure: No Smoking Status: Never smoker - Alcohol History How Often Do You Have a Drink Containing Alcohol: Never - Substance Use History Substance History: No History of Abuse - Travel History Recent Travel in the [place] Within the Last 8 Weeks: No Recent Travel Out of the Country Within the Last 8 Weeks: No - Immunization History Tetanus Immunization: >5 Years Medications and Allergies Active Medications: Active Medications Aspirin (Aspirin Supp) 300 mg RECTAL DAILY [facility] Dextrose (D50w Vial) 50 ml IV.PUSH UNSCH PRN PRN Reason: PER HYPOGLYCEMIA PROTOCOL Donepezil HCl (Aricept) 23 mg PO DAILY JULIO Glucagon (Glucagon Inj) 1 mg OTHER UNSCH PRN PRN Reason: for Hypoglycemia Protocol Heparin Sodium (Porcine) (Heparin Inj) 5,000 units SQ Q12H JULIO Insulin Aspart (Novolog Insulin Correctional Sugar Inj) 0 unit SQ ACHS JULIO; Protocol Levothyroxine Sodium (Synthroid) 50 mcg PO DAILY@0600 JULIO Montelukast Sodium (Singulair) 10 mg PO DAILY@1800 JULIO Pantoprazole Sodium (Protonix) 40 mg PO BID JULIO Pravastatin Sodium (Pravachol) 40 mg PO HS JULIO Pregabalin (Lyrica) 150 mg PO BID JULIO Sodium Chloride (Ns Flush) 2 ml IV.FLUSH BID JULIO Sodium Chloride (Ns Flush) 2 ml IV.FLUSH PRN PRN PRN Reason: FLUSH AFTER USING IV ACCESS Venlafaxine HCl (Effexor Xr) 150 mg PO DAILY JULIO Allergies Allergy/AdvReac Type Severity Reaction Status Date / Time penicillin G Allergy Severe TONGUE/ Verified 04/02/18 13:55 FACIAL SWELLING etodolac AdvReac Severe ANXIETY, Verified 04/02/18 13:55 AGITATION zolpidem AdvReac Severe HALLUCINATI Verified 04/02/18 13:55 ONS Home Medications Medication Instructions Recorded Confirmed Type atorvastatin [Lipitor] 10 mg PO DAILY 04/02/18 04/02/18 History calcium carbonate-vitamin D3 1 tab PO DAILY 04/02/18 04/02/18 History [Calcium with Vitamin D] donepezil [Aricept] 23 mg PO DAILY 04/02/18 04/02/18 History ferrous sulfate 325 mg PO DAILY 04/02/18 04/02/18 History hydrochlorothiazide 25 mg PO DAILY 04/02/18 04/02/18 History hydrocodone-acetaminophen 1 tab PO QID PRN 04/02/18 04/02/18 History levothyroxine 50 mcg PO DAILY 04/02/18 04/02/18 History montelukast 10 mg PO QPM 04/02/18 04/02/18 History pantoprazole 40 mg PO BID 04/02/18 04/02/18 History pregabalin [Lyrica] 150 mg PO BID 04/02/18 04/02/18 History venlafaxine [Effexor XR] 150 mg PO DAILY 04/02/18 04/02/18 History Exam Vital signs: Vital Signs 04/02/18 13:55 04/02/18 14:03 04/02/18 15:40 Temperature 98.8 F Pulse Rate 94 H 98 H 99 H Respiratory Rate 17 18 Blood Pressure 155/71 H Pulse Oximetry 97 100 04/02/18 16:14 04/02/18 17:24 04/02/18 19:28 Temperature 103 F H 98.9 F Pulse Rate 97 H 105 H 84 Respiratory Rate 26 H 19 20 Blood Pressure 132/63 154/71 H 138/64 Pulse Oximetry 94 L 99 99 Intake & Output 04/02/18 04/02/18 04/03/18 06:59 18:59 06:59 Intake Total 2701.625 / 2701.625 Balance 2701.625 / 2701.625 Weight 65.317 kg Intake: IV 2701.625 / 2701.625 Azactam Inj 1,000 MG In NS Inj 100 / 100 100 ML @ 200 mls/hr IV.SIG STAT STA Rx#:[id number] Gentamicin Inj 65 MG In NS Inj 101.625 / 101.625 100 ML @ 100 mls/hr IV.SIG ONCE ONE Rx#:[id number] NS Inj 1,000 ML @ Wide Open IV. 1999 / 1999 SIG BOLUS ONE Rx#:[id number] NS Inj 500 ML @ Wide Open IV. 500 / 500 SIG BOLUS ONE Rx#:[id number] Narrative: GENERAL: This is a well-nourished, well-developed patient, in no apparent distress. SKIN: Warm, dry, intact, no ecchymosis or open lesions EYES: Pupils equal round and reactive, no scleral edema or drainage CARDIOVASCULAR: Regular rate and rhythm without murmurs, gallops, or rubs. RESPIRATORY: Clear to auscultation. Breath sounds equal bilaterally. No wheezes , rales, or rhonchi. GASTROINTESTINAL: Abdomen soft, non-tender, nondistended. Normal active bowel sounds MUSCULOSKELETAL: Extremities without clubbing, cyanosis, or edema. NEURO: Sleepy, arouses to voice, oriented x1, does not follow many commands Results - Labs CBC & Chem 7: 04/02/18 14:11 04/02/18 14:11 Labs: Short CBC 04/02/18 Range/Units 14:11 WBC 12.6 H (4.0-11.0) th/mm3 Hgb 13.8 (11.6-15.3) gm/dL Hct 41.2 (35.0-46.0) % Plt Count 124 L (150-450) th/mm3 BMP 04/02/18 14:11 Sodium 139 Potassium 4.2 Chloride 101 Carbon Dioxide 29.4 BUN 39 H Creatinine 1.71 H Calcium 8.6 Cardiac Enzymes 04/02/18 Range/Units 14:11 Troponin I 0.05 (0.02-0.05) ng/mL Liver Function 04/02/18 Range/Units 14:11 Total Bilirubin 0.7 (0.2-1.0) mg/dL AST 37 (15-37) U/L ALT 30 (10-53) U/L Alkaline Phosphatase 83 (45-117) U/L Albumin 3.0 L (3.4-5.0) g/dL Urine 04/02/18 Range/Units 15:45 Urine Color Yellow (Yellw/Straw) Urine Clarity Cloudy H (Clear) Urine pH 5.0 (5.0-8.5) Ur Specific [place] 1.016 (1.002-1.035) Urine Protein 100 H (Neg-Trace) mg/dL Urine Glucose (UA) Negative (Negative) mg/dL - Imaging Impressions Chest X-Ray 04/02/18 14:03 CONCLUSION: Negative examination. Head CT 04/02/18 14:03 CONCLUSION: 1. Atrophy and white matter disease. 2. Age indeterminate small focus of low density in the left basal ganglia measuring 1.1 cm. MRI may be helpful for further evaluation. . Head MRI 04/02/18 15:09 CONCLUSION: 1. Small acute to subacute lacunar type infarct involving the left basal ganglia with restricted diffusion. 2. No evidence of hemorrhage or mass effect. 3. Atrophy and chronic small vessel ischemic changes. Caprini VTE Risk Assessment Caprini VTE Risk Assessment: Moderate/High Risk (score >= 2) Caprini Risk Assessment Model: Point Value = 1 Point Value = 2 Point Value = 3 Point Value = 5 Age 41-60 Minor surgery BMI > 25 kg/m2 Swollen legs Varicose veins or History of unexplained or recurrent spontaneous Oral contraceptives or hormone replacement Sepsis (< 1 month) Serious lung disease, including pneumonia (< 1 month) Abnormal pulmonary function Acute myocardial infarction Congestive heart failure (< 1 month) History of inflammatory bowel disease Medical patient at bed rest Age 61-74 Arthroscopic surgery Major open surgery (> 45 min) Laparoscopic surgery (> 45 min) Malignancy Confined to bed (> 72 hours) Immobilizing plaster cast Central venous access Age >= 75 History of VTE Family history of VTE Factor V Leiden Prothrombin [id number] Lupus anticoagulant Anticardiolipin antibodies Elevated serum homocysteine Heparin-induced thrombocytopenia Other congenital or acquired thrombophilia Stroke (< 1 month) Elective arthroplasty Hip, pelvis, or leg fracture Acute spinal cord injury (< 1 month) Prophylaxis Regimen: Total Risk Factor Score Risk Level Prophylaxis Regimen 0-1 Low Early ambulation 2 Moderate Order ONE of the following: *Sequential Compression Device (SCD) *Heparin 5000 units SQ BID 3-4 Higher Order ONE of the following medications: *Heparin 5000 units SQ TID *Enoxaparin/Lovenox 40 mg SQ daily (WT < 150 kg, CrCl > 30 mL/min) *Enoxaparin/Lovenox 30 mg SQ daily (WT < 150 kg, CrCl > 10-29 mL/min) *Enoxaparin/Lovenox 30 mg SQ BID (WT < 150 kg, CrCl > 30 mL/min) AND/OR *Sequential Compression Device (SCD) 5 or more Highest Order ONE of the following medications: *Heparin 5000 units SQ TID (Preferred with Epidurals) *Enoxaparin/Lovenox 40 mg SQ daily (WT < 150 kg, CrCl > 30 mL/min) *Enoxaparin/Lovenox 30 mg SQ daily (WT < 150 kg, CrCl > 10-29 mL/min) *Enoxaparin/Lovenox 30 mg SQ BID (WT < 150 kg, CrCl > 30 mL/min) AND *Sequential Compression Device (SCD) Assessment and Plan - Plan 87-year-old female with a history of hypertension, dementia and anemia was brought to the ED for evaluation of altered mental status. CVA, acute Head MRI shows a small acute to subacute lacunar type infarct involving the left basal ganglia with restricted diffusion -NEURO checks -Consult to neurology -NIH scale -Monitor telemetry -A1C and lipid profile ordered -Carotid US ordered Severe Sepsis, wbc 12.6, temp 103, HR 97, source pyelonephritis, lactic 4.8 UA shows large leukocyte esterase, positive nitrate and protein, moderate blood , wbc 115 -2 L bolus given in ED, lactic resolved to 0.9 -Culture pending -IV antibiotics aztreonam -avoid nephrotoxins Acute kidney injury, creatine 1.7, baseline .7, likely due to infection and dehydration -Cont IVF -Trend creatine in AM Anemia, chronic, hgb 13.8 -Resume home iron -Cont to monitor H&H HTN, chronic -hold home HCTZ until kidney function improves -Monitor vitals Dementia, chronic -Resume home medications DVT prophylaxis: Heparin sq Discussed Condition With: Patient
[2018-04-03] MEDS: Aspirin 300 MG Supp RECTAL SCH ×2 (00:35→08:58)
[2018-04-03] MEDS: Heparin - SQ 10,000 UNITS/ML Vial SQ SCH ×3 (00:36→20:39)
[2018-04-03] MEDS: Pregabalin 75 MG Capsule PO SCH ×3 (00:36→20:39)
[2018-04-03] MEDS: Sod Chloride 0.9% Inj 1,000 ML IV.CONT SCH ×3 (02:06→22:16)
[2018-04-03] MEDS: Insulin NovoLOG Aspart Correctional Sugar Inj SQ SCH ×5 (02:09→22:24)
[2018-04-03 04:54] LABS: Baso % (Auto) 0.2 % (0.0-2.0); Eos % (Auto) 0.1 % (0.0-4.0); Hematocrit 37.9 % (35.0-46.0); Lymph # (Auto) 0.2 th/mm3 (1.0-4.8); Lymph % (Auto) 1.9 % (9.0-44.0); Mean Corpuscular HGB Conc 34.3 % (32.0-36.0); Mean Corpuscular Hemoglobin 31.4 pg (27.0-34.0); Mean Corpuscular Volume 91.7 fL (80.0-100.0); Mean Platelet Volume 8.6 fL (7.0-11.0); Mono # (Auto) 0.8 th/mm3 (0.0-0.9); Mono % (Auto) 8.7 % (0.0-8.0); Neut # (Auto) 8.3 th/mm3 (1.8-7.7); Neut % (Auto) 89.1 % (16.0-70.0); Platelet Count 100 th/mm3 (150-450); Red Blood Count 4.13 mil/mm3 (4.00-5.30); Red Cell Distribution Width 22.3 % (11.6-17.2); White Blood Count 9.3 th/mm3 (4.0-11.0)
[2018-04-03 05:26] LABS: Calcium 7.7 mg/dL (8.5-10.1); Carbon Dioxide 23.2 meq/L (21.0-32.0); Chol/HDL Ratio 2.15 Ratio; HDL Cholesterol 56.5 mg/dL (40.0-60.0); Potassium 3.5 meq/L (3.5-5.1)
[2018-04-03 05:55] LABS: Dimorphic RBC Present; Platelet Morphology Normal (Normal)
[2018-04-03] MEDS: Levothyroxine 50 MCG Tablet PO SCH (06:16)
[2018-04-03] MEDS: Ferrous Sulfate 325 MG Tablet PO SCH (08:58)
[2018-04-03] MEDS: Calcium/Vitamin D 250/125 MG Tablet PO SCH (08:58)
[2018-04-03] MEDS: Venlafaxine XR 75 MG Capsule PO SCH (08:58)
--- NOTE | 2018-04-03 10:30 | US ---
EXAM DATE: 04/03/2018 10:26 AM EDT AGE/SEX: 87 years / Female INDICATIONS: CVA. CLINICAL DATA: This is the patient's initial encounter. Patient reports that signs and symptoms have been present for 1 day and indicates a pain score of 0/10. MEDICAL/SURGICAL HISTORY: Anemia. Dementia. Hypertension. Hypothyroidism. Cholecystectomy. Hip replacement. COMPARISON: No prior exams available for comparison. VELOCITY PARAMETERS: ICA/CCA Ratio: Right 1.1 , Left 0.6 ICA: Right 71 cm/sec, Left 67 cm/sec CCA: Right 63 cm/sec, Left 116 cm/sec ECA: Right 79 cm/sec, Left 138 cm/sec Vertebral: Right 68 cm/sec antegrade, Left 50 cm/sec antegrade FINDINGS: Right Carotid: There is mild calcified and noncalcified plaque in the distal common carotid artery a nd carotid bulb.The waveforms are within normal limits. Left Carotid: There is moderate severity calcified and noncalcified plaque throughout the common car otid artery and within the carotid bulb and proximal internal carotid artery. The waveforms are withi n normal limits. Other: None. CONCLUSION: 1. Right Internal Carotid Artery: Findings indicate <50% stenosis. 2. Left Internal Carotid Artery: Findings indicate <50% stenosis. Electronically signed by: Wang Jeffery MD 04/03/2018 10:29 AM EDT
--- NOTE | 2018-04-03 12:13 | MB ---
cc: Abelardo Paiz MD DATE: 04/03/2018 HISTORY OF PRESENT ILLNESS: An 87-year-old right-handed woman with hypertension, hypercholesterolemia, some anemia, although the family is not sure why. She does not take an aspirin a day. She has dementia, recurrent UTIs, macular degeneration. She has a history of syncope on the toilet, none recently, but 4 times in the remote past. Thursday, she was found on the toilet, she had yelled out for her daughter. When they got there she seemed to be somewhat lethargic, maybe in and out a little bit of consciousness or hard to awaken. They got her up, got her to bed, and then the next morning she seemed to be unsteady on her feet with difficulty using a fork and brought into the hospital and was found to have a left MCA deep infarct, 2 small strokes. REVIEW OF SYSTEMS: According to the daughter, no diabetes, ME, stent, angioplasty, AFib, Coumadin, stent angioplasty. No heart problems. No history of renal, hepatic, or pulmonary disease, thyroid disease, lupus, ulcer, cancer, seizure, prior stroke. SOCIAL HISTORY: She is not a smoker or drinker, lives with her daughter. Is usually fairly independent and walks independently. FAMILY HISTORY: Positive for cancer. Negative for seizure or stroke. HOME MEDICATIONS: 1. Iron. 2. Calcium. 3. Montelukast. 4. Hydrochlorothiazide. 5. Hydrocodone for low back pain. 6. Effexor. 7. Lyrica 150 b.i.d. 8. Protonix. 9. Aricept 23 mg a day. 10. Lipitor 10 mg. 11. Thyroid medicine. 12. She does not take an aspirin a day. PHYSICAL EXAMINATION: VITAL SIGNS: Sinus rhythm here, afebrile, 92, blood pressure 155/71. There are no carotid bruits. HEART: Regular rate and rhythm. I did not detect a murmur. NEUROLOGIC: Pupils are equal. Visual hernandez are full peripherally. Extraocular movements intact without nystagmus. Face is symmetric with normal sensation. Tongue was midline. No drift. Normal strength in upper and lower extremities bilaterally. DTRs trace throughout. Toes downgoing bilaterally. Pinprick was intact in all 4 extremities. She is not ataxic on [id number]. Speech is fluent, not aphasic. GENERAL: She is very pleasant. She is awake and alert, but does not know where she lives, the state, the year, or the month. LABORATORY DATA: CBC is normal, except for a platelet count of 100,000 this morning, it was 124 yesterday. White count initially 12.6, now normal. UA large amount of leukocyte esterase, 115 white cells. Basic metabolic profile: Creatinine 1.2, it was 1.7 yesterday, so improved. Lactic acid 4.8, calcium 7.7. LDL cholesterol is normal. TSH normal. LFTs normal. Carotid ultrasound negative. MRI of the brain shows a lot of white matter changes, some atrophy, and the acute infarct on the left. Her troponin was negative. IMPRESSION: Left MCA deep infarct. We will check an MRA of the neck and [place] and echo, Holter, put her on 81 mg of aspirin a day. She has some, likely, Alzheimer dementia. We will check some other labs for dementia and she did get some gentamicin for her urinary tract infection. I would defer to the med team if that is fully treated. Looks like she also got some aztreonam. She had some blood cultures that were positive for gram-negative rods. Again, I defer to the med team on that. I will be following her with you in the hospital. Overall, she looks fairly well neurologically. If she does have the dementia we can treat that in the future with additional medication as an outpatient. We will check an EEG on her too for the episode on the toilet, but it sounds like she probably had, in the past, some vagovagal episode. MD AYLA Gamez/apolinar , 11:03 AM , 11:11 AM
[2018-04-03] MEDS ORDERED: Gadobutrol PF 10 MMOL/10 ML Vial (for RAD) IV.SIG ONE (12:47)
--- NOTE | 2018-04-03 13:25 | MR ---
EXAM DATE: 04/03/2018 1:17 PM EDT AGE/SEX: 87 years / Female INDICATIONS: . Shakiness. CLINICAL DATA: This is the patient's initial encounter. Patient reports that signs and symptoms have been present for 2 days and indicates a pain score of 0/10. MEDICAL/SURGICAL HISTORY: Hypercholesterolemia. Hypertension. Cholecystectomy. Hip and knee rep lacement. COMPARISON: [facility] [place], MR HEAD W/O CONTRAST, 04/02/2018. . TECHNIQUE: 3D [id number] MRA was performed. Source images, multiplanar STS MIP, and 3D volum e MIP reconstructions were reviewed. FINDINGS: The internal carotid arteries are symmetric bilaterally without significant stenosis. The left A1 seg ment is not visualized. There is a patent anterior communicating artery and the anterior cerebral art eries are within normal limits and symmetric. There is decreased flow related enhancement within the right M1 segment. More peripherally the middle cerebral artery branches appear relatively symmetric. Left vertebral artery is dominant with diminutive right vertebral artery. Basilar artery is within no rmal limits. Posterior cerebral arteries demonstrate no significant stenosis. Mild luminal irregulari ty may be related to atherosclerotic change. No aneurysm is seen. CONCLUSION: 1. There is asymmetric decreased flow related enhancement within the right M1 segment. 2. 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 3. Diminutive right distal vertebral artery. Electronically signed by: Wang Jeffery MD 04/03/2018 1:23 PM EDT
--- NOTE | 2018-04-03 13:29 | MR ---
EXAM DATE: 04/03/2018 1:21 PM EDT AGE/SEX: 87 years / Female INDICATIONS: . Shakiness. CLINICAL DATA: This is the patient's initial encounter. Patient reports that signs and symptoms have been present for 1 day and indicates a pain score of 0/10. MEDICAL/SURGICAL HISTORY: Hypertension. Hypercholesterolemia. Cholecystectomy. Hip and knee re placement. COMPARISON: [facility] – [place], US CAROTID DOPPLER BI, 04/03/2018. . TECHNIQUE: 10cc ml Gadavist (gadobutrol) contrast infused MRA (single exam dose) of the extracrania l circulation was performed using a neurovascular coil. Postprocessing was performed, including rota ting sub-volume maximum intensity projections of each carotid artery, rotating full-volume maximum in tensity projections of both carotid arteries, sagittal and coronal sliding thin-slab reformations of each carotid artery, and left oblique sliding thin-slab reformation through the aortic arch to includ e the origin of the arch branch vessels. FINDINGS: Aortic Arch : There is a three-vessel origin of the great vessels from the aorta. No evidence of o stial narrowing. Right Carotid : Common carotid artery is within normal limits. Carotid bulb, internal carotid artery , and external carotid artery demonstrates no significant abnormality or stenosis. Left Carotid : Common carotid artery demonstrates no significant stenosis. There is luminal narrowin g in the carotid bulb. Measuring using NASCET criteria suggests approximately 60% stenosis. The more distal internal carotid artery is within normal limits. External carotid artery demonstrates no abnor mality. Vertebrals : Left vertebral artery is dominant. Vertebral arteries appear patent throughout. CONCLUSION: 1. Focal narrowing in the left carotid bulb with approximately 60% stenosis. 2. No significant stenosis is identified within the right internal carotid artery. 3. Left vertebral artery is dominant. Percent stenosis is calculated using the diameter of the stenotic region over the diameter of the nor mal distal internal carotid artery Electronically signed by: Wang Jeffery MD 04/03/2018 1:28 [place]
--- NOTE | 2018-04-03 13:29 | P.PNIM ---
Subjective Interval history: No acute issues. Discussed with the patient's daughter at bedside. Patient has no complaints. She is more awake and alert. Physical Exam Vital signs: Vital Signs 04/02/18 13:55 04/02/18 14:03 04/02/18 15:40 Temperature 98.8 F Pulse Rate 94 H 98 H 99 H Respiratory Rate 17 18 Blood Pressure 155/71 H Pulse Oximetry 97 100 04/02/18 16:14 04/02/18 17:24 04/02/18 19:28 Temperature 103 F H 98.9 F Pulse Rate 97 H 105 H 84 Respiratory Rate 26 H 19 20 Blood Pressure 132/63 154/71 H 138/64 Pulse Oximetry 94 L 99 99 04/02/18 20:00 04/03/18 00:00 04/03/18 07:00 Temperature 98.7 F 97.8 F Pulse Rate 84 95 H Respiratory Rate 18 18 12 Blood Pressure 137/65 132/76 Pulse Oximetry 100 93 L 04/03/18 07:40 04/03/18 10:58 04/03/18 13:08 Temperature 98.8 F Pulse Rate 92 H Respiratory Rate 20 12 Blood Pressure 151/74 H Pulse Oximetry 97 97 04/03/18 13:12 Temperature Pulse Rate 91 H Respiratory Rate Blood Pressure Pulse Oximetry Intake & Output 04/02/18 04/03/18 04/03/18 18:59 06:59 18:59 Intake Total 2701.625 / 2701.625 1000 / 1000 Balance 2701.625 / 2701.625 1000 / 1000 Weight 65.317 kg Intake: IV 2701.625 / 2701.625 1000 / 1000 NS Inj 1,000 ML @ 84 mls/hr IV. 1000 / 1000 CONT .[id number] JULIO Rx#:[id number] Azactam Inj 1,000 MG In NS Inj 100 / 100 100 ML @ 200 mls/hr IV.SIG STAT STA Rx#:[id number] Gentamicin Inj 65 MG In NS Inj 101.625 / 101.625 100 ML @ 100 mls/hr IV.SIG ONCE ONE Rx#:[id number] NS Inj 1,000 ML @ Wide Open IV. 1999 / 1999 SIG BOLUS ONE Rx#:[id number] NS Inj 500 ML @ Wide Open IV. 500 / 500 SIG BOLUS ONE Rx#:[id number] Other: # Bowel Movements 1 # Incontinent Bowel Movements 1 Narrative: GENERAL: Elderly female in no acute distress. CARDIOVASCULAR: Regular rate and rhythm without murmurs, gallops, or rubs. RESPIRATORY: Clear to auscultation. Breath sounds equal bilaterally. No wheezes , rales, or rhonchi. GASTROINTESTINAL: Abdomen soft, non-tender, nondistended. Normal active bowel sounds MUSCULOSKELETAL: Extremities without clubbing, cyanosis, or edema. NEURO: Awake and alert. Generalized weakness. - Urinary Catheter Management Straight Cath placed during this visit: yes Reason for continuing: Not indwelling catheter Insertion time: 15:40 Results - Labs CBC & Chem 7: 04/03/18 04:32 04/03/18 04:32 Laboratory Results - last 24 hr 04/02/18 04/02/18 04/02/18 14:11 14:11 14:11 WBC 12.6 H RBC 4.45 Hgb 13.8 Hct 41.2 MCV 92.6 MCH 30.9 MCHC 33.4 RDW 23.6 H Plt Count 124 L MPV 9.0 Prelim Diff (Auto) Slide review pending Neut % (Auto) 87.2 H Lymph % (Auto) 4.3 L [place] % (Auto) 8.2 H Eos % (Auto) 0.1 Baso % (Auto) 0.2 Neut # (Auto) 11.0 H Lymph # (Auto) 0.5 L [place] # (Auto) 1.0 H Eos # (Auto) 0.0 Baso # (Auto) 0.0 WBC Differential . Diff Scan Auto diff confirmed Differential Comment . Platelet Estimate Low L Platelet Morphology Enlarged H Dimorphic RBCs Ovalocytes 1+ H PT 11.3 INR 1.1 Sodium 139 Potassium 4.2 Chloride 101 Carbon Dioxide 29.4 Anion Gap 9 BUN 39 H Creatinine 1.71 H Estimated GFR 28 L POC Glucose Random Glucose 104 Lactic Acid Calcium 8.6 Magnesium 2.7 H Total Bilirubin 0.7 AST 37 ALT 30 Alkaline Phosphatase 83 Troponin I 0.05 Total Protein 7.0 Albumin 3.0 L Triglycerides Cholesterol LDL Cholesterol, Calc HDL Cholesterol Cholesterol/HDL Ratio TSH 1.360 Urine Color Urine Clarity Urine pH Ur Specific [place] Urine Protein Urine Glucose (UA) Urine Ketones Urine Occult Blood Urine Nitrate Urine Bilirubin Urine Urobilinogen Ur Leukocyte Esterase Urine RBC Urine WBC Urine WBC Clumps Urine Bacteria Granular Casts Micro UA Comment Ur Microscopic Review Urine Culture Comments 04/02/18 04/02/18 04/02/18 15:45 16:20 18:35 WBC RBC Hgb Hct MCV MCH MCHC RDW Plt Count MPV Prelim Diff (Auto) Neut % (Auto) Lymph % (Auto) [place] % (Auto) Eos % (Auto) Baso % (Auto) Neut # (Auto) Lymph # (Auto) [place] # (Auto) Eos # (Auto) Baso # (Auto) WBC Differential Diff Scan Differential Comment Platelet Estimate Platelet Morphology Dimorphic RBCs Ovalocytes PT INR Sodium Potassium Chloride Carbon Dioxide Anion Gap BUN Creatinine Estimated GFR POC Glucose Random Glucose Lactic Acid 4.8 H* 0.9 Calcium Magnesium Total Bilirubin AST ALT Alkaline Phosphatase Troponin I Total Protein Albumin Triglycerides Cholesterol LDL Cholesterol, Calc HDL Cholesterol Cholesterol/HDL Ratio TSH Urine Color Yellow Urine Clarity Cloudy H Urine pH 5.0 Ur Specific [place] 1.016 Urine Protein 100 H Urine Glucose (UA) Negative Urine Ketones Trace H Urine Occult Blood Moderate H Urine Nitrate Positive H Urine Bilirubin Negative Urine Urobilinogen 4 or greater Ur Leukocyte Esterase Large H Urine RBC 35 H Urine WBC 115 H Urine WBC Clumps Many H Urine Bacteria Many H Granular Casts 12 Micro UA Comment Cath-culture ind Ur Microscopic Review Not Reportable Urine Culture Comments Cath-cult indicated 04/03/18 04/03/18 04/03/18 02:08 04:32 04:32 WBC 9.3 RBC 4.13 Hgb 13.0 Hct 37.9 MCV 91.7 MCH 31.4 MCHC 34.3 RDW 22.3 H Plt Count 100 L MPV 8.6 Prelim Diff (Auto) Slide review pending Neut % (Auto) 89.1 H Lymph % (Auto) 1.9 L [place] % (Auto) 8.7 H Eos % (Auto) 0.1 Baso % (Auto) 0.2 Neut # (Auto) 8.3 H Lymph # (Auto) 0.2 L [place] # (Auto) 0.8 Eos # (Auto) 0.0 Baso # (Auto) 0.0 WBC Differential . Diff Scan Auto diff confirmed Differential Comment . Platelet Estimate Low L Platelet Morphology Normal Dimorphic RBCs Present H Ovalocytes PT INR Sodium 142 Potassium 3.5 Chloride 110 H D Carbon Dioxide 23.2 Anion Gap 9 BUN 35 H Creatinine 1.20 H Estimated GFR 42 L POC Glucose 82 Random Glucose 112 H Lactic Acid Calcium 7.7 L D Magnesium Total Bilirubin AST ALT Alkaline Phosphatase Troponin I Total Protein Albumin Triglycerides 98 Cholesterol 122 LDL Cholesterol, Calc 46 HDL Cholesterol 56.5 Cholesterol/HDL Ratio 2.15 TSH Urine Color Urine Clarity Urine pH Ur Specific [place] Urine Protein Urine Glucose (UA) Urine Ketones Urine Occult Blood Urine Nitrate Urine Bilirubin Urine Urobilinogen Ur Leukocyte Esterase Urine RBC Urine WBC Urine WBC Clumps Urine Bacteria Granular Casts Micro UA Comment Ur Microscopic Review Urine Culture Comments 04/03/18 04/03/18 07:26 11:37 WBC RBC Hgb Hct MCV MCH MCHC RDW Plt Count MPV Prelim Diff (Auto) Neut % (Auto) Lymph % (Auto) [place] % (Auto) Eos % (Auto) Baso % (Auto) Neut # (Auto) Lymph # (Auto) [place] # (Auto) Eos # (Auto) Baso # (Auto) WBC Differential Diff Scan Differential Comment Platelet Estimate Platelet Morphology Dimorphic RBCs Ovalocytes PT INR Sodium Potassium Chloride Carbon Dioxide Anion Gap BUN Creatinine Estimated GFR POC Glucose 137 H 91 Random Glucose Lactic Acid Calcium Magnesium Total Bilirubin AST ALT Alkaline Phosphatase Troponin I Total Protein Albumin Triglycerides Cholesterol LDL Cholesterol, Calc HDL Cholesterol Cholesterol/HDL Ratio TSH Urine Color Urine Clarity Urine pH Ur Specific [place] Urine Protein Urine Glucose (UA) Urine Ketones Urine Occult Blood Urine Nitrate Urine Bilirubin Urine Urobilinogen Ur Leukocyte Esterase Urine RBC Urine WBC Urine WBC Clumps Urine Bacteria Granular Casts Micro UA Comment Ur Microscopic Review Urine Culture Comments Microbiology 04/02/18 16:00 Blood - Line Aerobic Blood Culture - Preliminary Escherichia coli 04/02/18 16:00 Blood - Line Anaerobic Blood Culture - Preliminary No growth in 1 day 04/02/18 16:05 Blood - Line Aerobic Blood Culture - Preliminary gram negative rods 04/02/18 16:05 Blood - Line Anaerobic Blood Culture - Preliminary No growth in 1 day - Imaging Impressions Chest X-Ray 04/02/18 14:03 CONCLUSION: Negative examination. Head CT 04/02/18 14:03 CONCLUSION: 1. Atrophy and white matter disease. 2. Age indeterminate small focus of low density in the left basal ganglia measuring 1.1 cm. MRI may be helpful for further evaluation. . Head MRI 04/02/18 15:09 CONCLUSION: 1. Small acute to subacute lacunar type infarct involving the left basal ganglia with restricted diffusion. 2. No evidence of hemorrhage or mass effect. 3. Atrophy and chronic small vessel ischemic changes. Carotid Doppler Study 04/03/18 00:00 CONCLUSION: 1. Right Internal Carotid Artery: Findings indicate <50% stenosis. 2. Left Internal Carotid Artery: Findings indicate <50% stenosis. Assessment and Plan - Plan 87-year-old female with a history of hypertension, dementia and anemia was brought to the ED for evaluation of altered mental status. Patient found to have an acute CVA and severe sepsis secondary to UTI. CVA, acute Head MRI shows a small acute to subacute lacunar type infarct involving the left basal ganglia with restricted diffusion -Appreciate neurology input. Patient started on aspirin. -2D echo and Holter -Monitor telemetry -A1C pending. Lipids okay. -Carotid US with less than 50% stenosis Severe Sepsis secondary to UTI/gram-negative leandro bacteremia -2 L bolus given in ED, lactic resolved to 0.9 -Blood cultures growing gram-negative rods -Continue IV antibiotics with aztreonam -Consult ID Acute kidney injury, creatine 1.7, baseline .7, likely due to infection and dehydration -Cont IVF -Trend creatine HTN, chronic -hold home HCTZ until kidney function improves -Monitor vitals Dementia, chronic -Resume home dose Aricept History of gastric ulcers: - Continue PPI twice a day. Discussed risk and benefit with the patient's daughter. She understands the benefit of aspirin outweigh the risk at this time. Patient will be closely monitored. DVT prophylaxis: Heparin sq
[2018-04-03] MEDS: Montelukast 10 MG Tablet PO SCH (17:00)
[2018-04-03] MEDS: Acetaminophen 325 MG Tablet PO PRN (20:39)
--- NOTE | 2018-04-03 22:55 | MB ---
cc: oIn Infante MD DATE: 04/03/2018 REQUESTING PHYSICIAN: Jordan Smith MD REASON FOR CONSULTATION: Gram-negative leandro bacteremia/UTI. HISTORY OF PRESENT ILLNESS: This is an 87-year-old white female who was admitted to the hospital after presenting to the emergency department with altered mental status. The patient has history of dementia. She is confused and, therefore, I am unable to get any meaningful information from her. She is oriented to place and person, but not time. The patient reportedly was found slumped over on the toilet by her daughter, and the following day, she was tremulous and unable to feed herself, per emergency report. She was evaluated in the emergency department and she was afebrile, but had elevated white count of 12.6. Urinalysis was performed and it showed many white blood cell clumps and many bacteria. Blood cultures were also taken. The blood culture has Escherichia coli in one 1 bottle. The patient had a temperature spike of 103 degrees. She was started on antibiotics. The temperature has improved. The urine culture has gram-negative leandro. Consultation is requested for antibiotic management. THE PATIENT HAS AN ALLERGY TO PENICILLIN. Information is obtained from medical record because I cannot interview her adequately because of her mental status. PAST MEDICAL HISTORY: Dementia, hypertension, hypothyroidism, anemia, history of cholecystectomy, history of hip replacement. ALLERGIES: PENICILLIN, ETODOLAC, ZOLPIDEM. MEDICATIONS 1. Aztreonam. 2. Ecotrin. 3. Lipitor. 4. Aricept. 5. Ferrous sulfate. 6. Insulin. 7. Synthroid. 8. Singulair. 9. Protonix. 10. Pravachol. 11. Pregabalin. 10. Effexor. SOCIAL HISTORY: The patient lives with her daughter. No tobacco, no alcohol, no illicit drugs. FAMILY HISTORY: None. FAMILY HISTORY: Noncontributory. REVIEW OF SYSTEMS: Unable to obtain because of the patient's mental status. PHYSICAL EXAMINATION: GENERAL: This is a frail, elderly female, who is in no acute distress. She is somewhat somnolent. VITAL SIGNS: Includes temperature of 98.8, BP 151/74, respirations 18, heart rate is 92. HEENT: Extraocular movements are grossly intact. Pupils reactive to light. No icterus. Oropharynx slightly dry mucosa. No visible lesions. NECK: Supple, no adenopathy. LUNGS: Clear breath sounds bilaterally. HEART: Regular S1 and S2, without murmurs. ABDOMEN: Bowel sounds present. Soft, nontender. RECTAL: Not performed. EXTREMITIES: No clubbing, cyanosis or edema. SKIN: No rash. NEUROLOGIC: Nonfocal. PSYCHIATRIC: Unable to fully assess. LABORATORY DATA: WBC 9.3, platelets 100, hemoglobin 15.0, creatinine 1.20, BUN 35, sodium 142. Estimated GFR 42. MRI of the brain showed a small acute to subacute lacunar type infarct involving the left basal ganglia with restricted diffusion. ASSESSMENT: 1. Bacteremia due to Escherichia coli. The patient presented with fever and altered mental status (sepsis). 2. Urinary tract infection due to gram-negative bacteria, likely cause of the sepsis. 3. Altered mental status appears slightly improved. 4. ALLERGY TO PENICILLIN. RECOMMENDATIONS: 1. Continue aztreonam. 2. Monitor blood culture sensitivity. 3. Monitor urine culture identity and sensitivity. 4. Monitor clinical response to antibiotic treatment. Thank you for this consultation. I will follow the patient's progress along with you and will make further recommendations upon followup. MD CHEY Gross/richelle , 04:39 PM , 04:49 PM
--- NOTE | 2018-04-04 00:39 | ECG ---
Date Performed: 04/02/2018 Time Performed: 15:01:11 PTAGE: 87 years EKG: Sinus rhythm WITH FIRST DEGREE AV BLOCK WITH OCCASIONAL SUPRAVENTRICULAR PREMATURE COMPLEXES MODERATE T-WAVE ABNO RMALITY, CONSIDER LATERAL ISCHEMIA ABNORMAL ECG NO PREVIOUS TRACING DOCTOR: Neftali Talbot Interpretating Date/Time 04/04/2018 00:38:14
[2018-04-04] MEDS: Sod Chloride 0.9% Inj 1,000 ML IV.CONT SCH ×3 (02:15→23:22)
[2018-04-04] MEDS: Levothyroxine 50 MCG Tablet PO SCH (05:26)
[2018-04-04] MEDS: Insulin NovoLOG Aspart Correctional Sugar Inj SQ SCH ×4 (09:31→21:04)
[2018-04-04] MEDS: Heparin - SQ 10,000 UNITS/ML Vial SQ SCH ×2 (09:43→20:54)
[2018-04-04] MEDS: Ferrous Sulfate 325 MG Tablet PO SCH (09:44)
[2018-04-04] MEDS: Pregabalin 75 MG Capsule PO SCH ×2 (09:44→20:54)
[2018-04-04] MEDS: amLODIPine 5 MG Tablet PO SCH (09:45)
[2018-04-04] MEDS: Venlafaxine XR 75 MG Capsule PO SCH (09:45)
[2018-04-04] MEDS: Calcium/Vitamin D 250/125 MG Tablet PO SCH (09:46)
[2018-04-04] MEDS: Acetaminophen 325 MG Tablet PO PRN (12:22)
--- NOTE | 2018-04-04 12:43 | P.PNIM ---
Subjective Interval history: Patient reports she is feeling okay today. No new issues. Physical Exam Vital signs: Vital Signs 04/03/18 13:08 04/03/18 13:12 04/03/18 14:11 Temperature Pulse Rate 91 H Respiratory Rate 12 Blood Pressure 165/74 H Pulse Oximetry 04/03/18 15:40 04/03/18 17:26 04/03/18 20:00 Temperature 98.8 F 98.7 F Pulse Rate 92 H 95 H 108 H Respiratory Rate 18 21 Blood Pressure 151/74 H 208/98 H Pulse Oximetry 97 96 04/03/18 22:37 04/04/18 00:00 04/04/18 04:00 Temperature 97.7 F 97.9 F Pulse Rate 88 93 H Respiratory Rate 21 19 Blood Pressure 176/88 H 171/72 H 141/90 H Pulse Oximetry 97 96 04/04/18 08:00 04/04/18 08:34 04/04/18 09:28 Temperature 97.7 F Pulse Rate 96 H 89 Respiratory Rate 18 Blood Pressure 184/86 H Pulse Oximetry 100 Intake & Output 04/03/18 04/04/18 04/04/18 18:59 06:59 18:59 Intake Total 1600 / 1600 100 / 100 1340 / 1340 Output Total 500 / 500 900 / 900 Balance 1100 / 1100 -800 / -800 1340 / 1340 Weight 64 kg Intake: IV 1100 / 1100 100 / 100 1100 / 1100 NS Inj 1,000 ML @ 84 mls/hr IV. 1000 / 1000 1000 / 1000 CONT .[id number] JULIO Rx#:[id number] Azactam Inj 1,000 MG In NS Inj 100 / 100 100 / 100 100 / 100 100 ML @ 200 mls/hr IV.SIG Q8H JULIO Rx#:[id number] Oral 500 / 500 240 / 240 Output: Urine 500 / 500 900 / 900 Other: # Voids 5 5 Date of Last Bowel Movement 04/03/18 # Bowel Movements 1 2 # Incontinent Bowel Movements 1 Narrative: GENERAL: Elderly female in no acute distress. CARDIOVASCULAR: Regular rate and rhythm without murmurs, gallops, or rubs. RESPIRATORY: Clear to auscultation. Breath sounds equal bilaterally. No wheezes , rales, or rhonchi. GASTROINTESTINAL: Abdomen soft, non-tender, nondistended. Normal active bowel sounds MUSCULOSKELETAL: Extremities without clubbing, cyanosis, or edema. NEURO: Awake and alert. Generalized weakness. - Urinary Catheter Management Straight Cath placed during this visit: yes Reason for continuing: Not indwelling catheter Insertion time: 15:40 Results - Labs CBC & Chem 7: 04/03/18 04:32 04/03/18 04:32 Laboratory Results - last 24 hr 04/02/18 04/03/18 04/03/18 15:45 04:32 04:32 Sodium 142 Potassium 3.5 Chloride 110 H D Carbon Dioxide 23.2 Anion Gap 9 BUN 35 H Creatinine 1.20 H Estimated GFR 42 L POC Glucose Random Glucose 112 H Hemoglobin A1c 5.0 Calcium 7.7 L D Triglycerides 98 Cholesterol 122 LDL Cholesterol, Calc 46 HDL Cholesterol 56.5 Cholesterol/HDL Ratio 2.15 Vitamin B12 1602 H Urine Color Yellow Urine Clarity Cloudy H Urine pH 5.0 Ur Specific [place] 1.016 Urine Protein 100 H Urine Glucose (UA) Negative Urine Ketones Trace H Urine Occult Blood Moderate H Urine Nitrate Positive H Urine Bilirubin Negative Urine Urobilinogen 4 or greater Ur Leukocyte Esterase Large H Urine RBC 35 H Urine WBC 115 H Urine WBC Clumps Many H Urine Bacteria Many H Granular Casts 12 Micro UA Comment Cath-culture ind Urine Culture Comments Cath-cult indicated 04/03/18 04/03/18 04/03/18 04:32 15:25 22:24 Sodium Potassium Chloride Carbon Dioxide Anion Gap BUN Creatinine Estimated GFR POC Glucose 96 113 H Random Glucose Hemoglobin A1c Calcium Triglycerides Cholesterol LDL Cholesterol, Calc HDL Cholesterol Cholesterol/HDL Ratio Vitamin B12 Cancelled Urine Color Urine Clarity Urine pH Ur Specific [place] Urine Protein Urine Glucose (UA) Urine Ketones Urine Occult Blood Urine Nitrate Urine Bilirubin Urine Urobilinogen Ur Leukocyte Esterase Urine RBC Urine WBC Urine WBC Clumps Urine Bacteria Granular Casts Micro UA Comment Urine Culture Comments 04/04/18 04/04/18 07:44 12:22 Sodium Potassium Chloride Carbon Dioxide Anion Gap BUN Creatinine Estimated GFR POC Glucose 83 121 H Random Glucose Hemoglobin A1c Calcium Triglycerides Cholesterol LDL Cholesterol, Calc HDL Cholesterol Cholesterol/HDL Ratio Vitamin B12 Urine Color Urine Clarity Urine pH Ur Specific [place] Urine Protein Urine Glucose (UA) Urine Ketones Urine Occult Blood Urine Nitrate Urine Bilirubin Urine Urobilinogen Ur Leukocyte Esterase Urine RBC Urine WBC Urine WBC Clumps Urine Bacteria Granular Casts Micro UA Comment Urine Culture Comments Microbiology 04/02/18 16:05 Blood - Line Aerobic Blood Culture - Preliminary gram negative rods 04/02/18 16:05 Blood - Line Anaerobic Blood Culture - Preliminary No growth in 2 days 04/02/18 16:00 Blood - Line Aerobic Blood Culture - Preliminary Escherichia coli 04/02/18 16:00 Blood - Line Anaerobic Blood Culture - Preliminary No growth in 2 days 04/02/18 15:45 Clean Catch Urine Urine Culture - Final Escherichia coli - Imaging Impressions Neck MRA 04/03/18 00:00 CONCLUSION: 1. Focal narrowing in the left carotid bulb with approximately 60% stenosis. 2. No significant stenosis is identified within the right internal carotid artery. 3. Left vertebral artery is dominant. Percent stenosis is calculated using the diameter of the stenotic region over the diameter of the normal distal internal carotid artery Head MRA 04/03/18 11:01 CONCLUSION: 1. There is asymmetric decreased flow related enhancement within the right M1 segment. 2. 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 3. Diminutive right distal vertebral artery. Assessment and Plan - Plan 87-year-old female with a history of hypertension, dementia and anemia was brought to the ED for evaluation of altered mental status. Patient found to have an acute CVA and severe sepsis secondary to UTI. CVA, acute Head MRI shows a small acute to subacute lacunar type infarct involving the left basal ganglia with restricted diffusion -Appreciate neurology input. Patient started on aspirin. -2D echo and Holter pending -Monitor telemetry -A1C and lipids okay. -Carotid US with less than 50% stenosis Severe Sepsis secondary to UTI/gram-negative leandro bacteremia -2 L bolus given in ED, lactic resolved to 0.9 -Blood cultures growing gram-negative rods -Continue IV antibiotics with aztreonam -Appreciate infectious disease following. Acute kidney injury, creatine 1.7, baseline .7, likely due to infection and dehydration -Cont IVF -Trend creatine. Follow-up levels in a.m. HTN, chronic -hold home HCTZ until kidney function improves -Start amlodipine. Clonidine as needed. -Monitor vitals Dementia, chronic -Resume home dose Aricept History of gastric ulcers: - Continue PPI twice a day. Previously discussed risk and benefit with the patient's daughter. She understands the benefit of aspirin outweigh the risk at this time. Patient will be closely monitored. DVT prophylaxis: Heparin sq
[2018-04-04] MEDS: Montelukast 10 MG Tablet PO SCH (17:17)
--- NOTE | 2018-04-04 17:21 | MG ---
cc: Abelardo Paiz MD INDICATIONS: This is an 87-year-old found slumped over the toilet. Aspirin, Effexor. FINDINGS: Diffuse 8 Hz rhythms are noted. Some mild diffuse theta slowing is seen. Some sharply contoured waves are seen over the bitemporal head region, a little bit more in the left than the right. Photic stimulation is performed without significant posterior driving and a large high amplitude at epoch 55. Diffuse slowing is seen in the 4-5 Hz range. At epoch 103, it looks like she has a small spike wave over the bifrontal head region and some other bifrontal sharp waves which were intermixed with some slowing. It looks like she did have a small spike wave seen over the bifrontal head region towards the end of the recording and intermixed with some other sharps, certainly this patient could have an underlying seizure disorder. Clinical correlation is needed. MD AYLA Gamez/richelle , 03:31 PM , 03:35 PM
--- NOTE | 2018-04-04 18:38 | P.PNNEU ---
Subjective Subjective Comments: sr? Active Medications: Active Medications Acetaminophen (Tylenol) 650 mg PO Q4H PRN PRN Reason: fever or bowman Last Admin: 04/04/18 12:22 Dose: 650 mg Amlodipine Besylate (Norvasc) 5 mg PO DAILY [facility] Last Admin: 04/04/18 09:45 Dose: 5 mg Aspirin (Ecotrin) 81 mg PO DAILY [facility] Last Admin: 04/04/18 09:43 Dose: 81 mg Atorvastatin Calcium (Lipitor) 10 mg PO DAILY [facility] Last Admin: 04/04/18 09:45 Dose: 10 mg Calcium/Vitamin D (Oscal With D 250/125 Mg) 2 tab PO DAILY [facility] Last Admin: 04/04/18 09:46 Dose: 2 tab Clonidine HCl (Catapres) 0.1 mg PO Q6H PRN PRN Reason: SYS BP GREATER THAN 180 MMHG Last Admin: 04/04/18 12:23 Dose: 0.1 mg Dextrose (D50w Vial) 50 ml IV.PUSH UNSCH PRN PRN Reason: PER HYPOGLYCEMIA PROTOCOL Donepezil HCl (Aricept) 23 mg PO DAILY [facility] Last Admin: 04/04/18 09:44 Dose: 23 mg Ferrous Sulfate (Ferosul) 325 mg PO DAILY [facility] Last Admin: 04/04/18 09:44 Dose: 325 mg Glucagon (Glucagon Inj) 1 mg OTHER UNSCH PRN PRN Reason: for Hypoglycemia Protocol Heparin Sodium (Porcine) (Heparin Inj) 5,000 units SQ Q12H [facility] Last Admin: 04/04/18 09:43 Dose: 5,000 units Sodium Chloride (Ns Inj) 1,000 mls @ 84 mls/hr IV.CONT .[id number] [facility] Last Admin: 04/04/18 12:25 Dose: 84 mls/hr Aztreonam 1,000 mg/ Sodium (Chloride) 100 mls @ 200 mls/hr IV.SIG Q8H [facility] Last Infusion: 04/04/18 17:18 Dose: Infused Insulin Aspart (Novolog Insulin Correctional Sugar Inj) 0 unit SQ ACHS [facility]; Protocol Last Admin: 04/04/18 17:15 Dose: Not Given Levothyroxine Sodium (Synthroid) 50 mcg PO DAILY@0600 [facility] Last Admin: 04/04/18 05:26 Dose: 50 mcg Montelukast Sodium (Singulair) 10 mg PO DAILY@1800 [facility] Last Admin: 04/04/18 17:17 Dose: 10 mg Pantoprazole Sodium (Protonix) 40 mg PO BID [facility] Last Admin: 04/04/18 09:46 Dose: 40 mg Pravastatin Sodium (Pravachol) 40 mg PO HS [facility] Last Admin: 04/03/18 20:40 Dose: 40 mg Pregabalin (Lyrica) 150 mg PO BID [facility] Last Admin: 04/04/18 09:44 Dose: 150 mg Sodium Chloride (Ns Flush) 2 ml IV.FLUSH BID [facility] Last Admin: 04/04/18 09:47 Dose: 2 ml Sodium Chloride (Ns Flush) 2 ml IV.FLUSH PRN PRN PRN Reason: FLUSH AFTER USING IV ACCESS Venlafaxine HCl (Effexor Xr) 150 mg PO DAILY [facility] Last Admin: 04/04/18 09:45 Dose: 150 mg Allergies/Adverse Reactions: Allergies Allergy/AdvReac Type Severity Reaction Status Date / Time penicillin G Allergy Severe TONGUE/ Verified 04/02/18 13:55 FACIAL SWELLING etodolac AdvReac Severe ANXIETY, Verified 04/02/18 13:55 AGITATION zolpidem AdvReac Severe HALLUCINATI Verified 04/02/18 13:55 ONS Physical Exam Vital signs: Vital Signs 04/03/18 20:00 04/03/18 22:37 04/04/18 00:00 Temperature 98.7 F 97.7 F Pulse Rate 108 H 88 Respiratory Rate 21 21 Blood Pressure 208/98 H 176/88 H 171/72 H Pulse Oximetry 96 97 04/04/18 04:00 04/04/18 08:00 04/04/18 08:34 Temperature 97.9 F 97.7 F Pulse Rate 93 H 96 H Respiratory Rate 19 18 Blood Pressure 141/90 H 184/86 H Pulse Oximetry 96 100 04/04/18 09:28 04/04/18 12:00 04/04/18 13:46 Temperature 101.3 F H Pulse Rate 89 96 H Respiratory Rate 20 Blood Pressure 158/64 H Pulse Oximetry 99 04/04/18 15:59 Temperature 98.2 F Pulse Rate 71 Respiratory Rate 18 Blood Pressure 111/59 L Pulse Oximetry 96 Intake & Output 04/03/18 04/04/18 04/04/18 18:59 06:59 18:59 Intake Total 1600 / 1600 100 / 100 2280 / 2280 Output Total 500 / 500 900 / 900 Balance 1100 / 1100 -800 / -800 2280 / 2280 Weight 64 kg Intake: IV 1100 / 1100 100 / 100 1200 / 1200 NS Inj 1,000 ML @ 84 mls/hr IV. 1000 / 1000 1000 / 1000 CONT .[id number] [facility] Rx#:[id number] Azactam Inj 1,000 MG In NS Inj 100 / 100 100 / 100 200 / 200 100 ML @ 200 mls/hr IV.SIG Q8H [facility] Rx#:[id number] Oral 500 / 500 1080 / 1080 Output: Urine 500 / 500 900 / 900 Other: # Voids 5 5 Date of Last Bowel Movement 04/03/18 # Bowel Movements 1 4 # Incontinent Bowel Movements 1 Narrative: vff face sym 5/ t/o nl speech - Urinary Catheter Management Straight Cath placed during this visit: yes Reason for continuing: Not indwelling catheter Insertion time: 15:40 Objective Laboratory Results - last 24 hr 04/03/18 04/04/18 04/04/18 22:24 07:44 12:22 POC Glucose 113 H 83 121 H 04/04/18 17:14 POC Glucose 134 H Microbiology 04/02/18 16:05 Aerobic Blood Culture - Preliminary Blood - Line gram negative rods Anaerobic Blood Culture - Preliminary No growth in 2 days 04/02/18 16:00 Aerobic Blood Culture - Preliminary Blood - Line Escherichia coli Anaerobic Blood Culture - Preliminary No growth in 2 days 04/02/18 15:45 Urine Culture - Final Clean Catch Urine Escherichia coli Review/Management - Review/Management Plan: imp left deep cva 60% or less left ica cow some dz not severe ldl nl on 81 asa labs pend bld cx pos echo and holter pend eeg shows sharps will start low dose keppra nd push up in few days oob ok some of the tele strips hard to tell if sr or not MED TEAM PLZ REVIEW ALL THE TELE STRIPS AND IF THINK ANY AFIB CALL CARDS
[2018-04-05] MEDS: Levothyroxine 50 MCG Tablet PO SCH (05:51)
[2018-04-05 07:29] LABS: Hematocrit 31.8 % (35.0-46.0); Hemoglobin 10.9 gm/dL (11.6-15.3); Mean Corpuscular HGB Conc 34.4 % (32.0-36.0); Mean Corpuscular Hemoglobin 31.5 pg (27.0-34.0); Mean Corpuscular Volume 91.5 fL (80.0-100.0); Platelet Count 108 th/mm3 (150-450); Red Blood Count 3.47 mil/mm3 (4.00-5.30); Red Cell Distribution Width 21.8 % (11.6-17.2); White Blood Count 9.7 th/mm3 (4.0-11.0)
--- NOTE | 2018-04-05 08:04 | P.PNNEU ---
Subjective Active Medications: Active Medications Acetaminophen (Tylenol) 650 mg PO Q4H PRN PRN Reason: fever or bowman Last Admin: 04/04/18 12:22 Dose: 650 mg Amlodipine Besylate (Norvasc) 5 mg PO DAILY [facility] Last Admin: 04/04/18 09:45 Dose: 5 mg Aspirin (Ecotrin) 81 mg PO DAILY [facility] Last Admin: 04/04/18 09:43 Dose: 81 mg Atorvastatin Calcium (Lipitor) 10 mg PO DAILY [facility] Last Admin: 04/04/18 09:45 Dose: 10 mg Calcium/Vitamin D (Oscal With D 250/125 Mg) 2 tab PO DAILY [facility] Last Admin: 04/04/18 09:46 Dose: 2 tab Clonidine HCl (Catapres) 0.1 mg PO Q6H PRN PRN Reason: SYS BP GREATER THAN 180 [facility] Last Admin: 04/04/18 23:49 Dose: 0.1 mg Dextrose (D50w Vial) 50 ml IV.PUSH UNSCH PRN PRN Reason: PER HYPOGLYCEMIA PROTOCOL Donepezil HCl (Aricept) 23 mg PO DAILY [facility] Last Admin: 04/04/18 09:44 Dose: 23 mg Ferrous Sulfate (Ferosul) 325 mg PO DAILY [facility] Last Admin: 04/04/18 09:44 Dose: 325 mg Glucagon (Glucagon Inj) 1 mg OTHER UNSCH PRN PRN Reason: for Hypoglycemia Protocol Heparin Sodium (Porcine) (Heparin Inj) 5,000 units SQ Q12H [facility] Last Admin: 04/04/18 20:54 Dose: 5,000 units Sodium Chloride (Ns Inj) 1,000 mls @ 84 mls/hr IV.CONT .[id number] [facility] Last Infusion: 04/04/18 23:29 Dose: Infused Aztreonam 1,000 mg/ Sodium (Chloride) 100 mls @ 200 mls/hr IV.SIG Q8H [facility] Last Infusion: 04/04/18 23:58 Dose: Infused Insulin Aspart (Novolog Insulin Correctional Sugar Inj) 0 unit SQ ACHS [facility]; Protocol Last Admin: 04/04/18 21:04 Dose: Not Given Levothyroxine Sodium (Synthroid) 50 mcg PO DAILY@0600 [facility] Last Admin: 04/05/18 05:51 Dose: 50 mcg Montelukast Sodium (Singulair) 10 mg PO DAILY@1800 [facility] Last Admin: 04/04/18 17:17 Dose: 10 mg Pantoprazole Sodium (Protonix) 40 mg PO BID [facility] Last Admin: 04/04/18 20:54 Dose: 40 mg Pravastatin Sodium (Pravachol) 40 mg PO HS [facility] Last Admin: 04/04/18 20:54 Dose: 40 mg Pregabalin (Lyrica) 150 mg PO BID [facility] Last Admin: 04/04/18 20:54 Dose: 150 mg Sodium Chloride (Ns Flush) 2 ml IV.FLUSH BID [facility] Last Admin: 04/04/18 20:55 Dose: 2 ml Sodium Chloride (Ns Flush) 2 ml IV.FLUSH PRN PRN PRN Reason: FLUSH AFTER USING IV ACCESS Venlafaxine HCl (Effexor Xr) 150 mg PO DAILY [facility] Last Admin: 04/04/18 09:45 Dose: 150 mg Allergies/Adverse Reactions: Allergies Allergy/AdvReac Type Severity Reaction Status Date / Time penicillin G Allergy Severe TONGUE/ Verified 04/02/18 13:55 FACIAL SWELLING etodolac AdvReac Severe ANXIETY, Verified 04/02/18 13:55 AGITATION zolpidem AdvReac Severe HALLUCINATI Verified 04/02/18 13:55 ONS Physical Exam Vital signs: Vital Signs 04/04/18 08:34 04/04/18 09:28 04/04/18 12:00 Temperature 101.3 F H Pulse Rate 89 96 H Respiratory Rate 20 Blood Pressure 184/86 H Pulse Oximetry 99 04/04/18 13:46 04/04/18 15:59 04/04/18 20:00 Temperature 98.2 F 97.2 F L Pulse Rate 71 86 Respiratory Rate 18 20 Blood Pressure 158/64 H 111/59 L 160/72 H Pulse Oximetry 96 98 04/04/18 20:30 04/05/18 00:00 04/05/18 00:30 Temperature 98.0 F Pulse Rate 90 92 H 95 H Respiratory Rate 21 Blood Pressure 185/87 H Pulse Oximetry 95 04/05/18 03:07 04/05/18 04:00 04/05/18 04:30 Temperature 98.2 F Pulse Rate 84 101 H Respiratory Rate 18 18 Blood Pressure 172/77 H Pulse Oximetry 94 L Intake & Output 04/04/18 04/05/18 04/05/18 18:59 06:59 18:59 Intake Total 2280 / 2280 1100 / 1100 Balance 2280 / 2280 1100 / 1100 Weight 65.5 kg Intake: IV 1200 / 1200 1100 / 1100 NS Inj 1,000 ML @ 84 mls/hr IV. 1000 / 1000 1000 / 1000 CONT .[id number] [facility] Rx#:[id number] Azactam Inj 1,000 MG In NS Inj 200 / 200 100 / 100 100 ML @ 200 mls/hr IV.SIG Q8H [facility] Rx#:[id number] Oral 1080 / 1080 Other: # Voids 5 2 # Incontinent Voids 3 Date of Last Bowel Movement 04/05/18 # Bowel Movements 4 1 Narrative: vff face sym 10/10 t/o nl speech no change - Urinary Catheter Management Straight Cath placed during this visit: yes Reason for continuing: Not indwelling catheter Insertion time: 15:40 Objective Laboratory Results - last 24 hr 04/04/18 04/04/18 04/04/18 12:22 17:14 20:57 WBC RBC Hgb Hct MCV MCH MCHC RDW Plt Count MPV POC Glucose 121 H 134 H 113 H 04/05/18 06:40 WBC 9.7 RBC 3.47 L Hgb 10.9 L Hct 31.8 L MCV 91.5 MCH 31.5 MCHC 34.4 RDW 21.8 H Plt Count 108 L MPV 9.0 POC Glucose Microbiology 04/02/18 16:05 Aerobic Blood Culture - Preliminary Blood - Line gram negative rods Anaerobic Blood Culture - Preliminary No growth in 2 days 04/02/18 16:00 Aerobic Blood Culture - Preliminary Blood - Line Escherichia coli Anaerobic Blood Culture - Preliminary No growth in 2 days 04/02/18 15:45 Urine Culture - Final Clean Catch Urine Escherichia coli Review/Management - Review/Management Plan: imp left deep cva 60% or less left ica cow some dz not severe ldl nl on 81 asa labs pend bld cx pos echo and holter pend eeg shows sharps will start low dose keppra nd push up in few days oob ok some of the tele strips hard to tell if sr or not MED TEAM PLZ REVIEW ALL THE TELE STRIPS AND IF THINK ANY AFIB CALL CARDS 04/05/18 i am still unclear as to rhythm as noted above med team plz clarify on asa if not afib and echo nl and holter done could dc on keppra and asa 81mg with hx gi bleed and fu office
[2018-04-05 08:08] LABS: Calcium 7.5 mg/dL (8.5-10.1); Carbon Dioxide 24.1 meq/L (21.0-32.0)
[2018-04-05] MEDS: Insulin NovoLOG Aspart Correctional Sugar Inj SQ SCH ×4 (08:23→23:10)
[2018-04-05 08:25] LABS: Potassium 2.9 meq/L (3.5-5.1)
[2018-04-05] MEDS: Pregabalin 75 MG Capsule PO SCH ×2 (08:43→20:10)
[2018-04-05] MEDS: Venlafaxine XR 75 MG Capsule PO SCH (08:43)
[2018-04-05] MEDS: Ferrous Sulfate 325 MG Tablet PO SCH (08:43)
[2018-04-05] MEDS: Heparin - SQ 10,000 UNITS/ML Vial SQ SCH ×2 (08:43→20:11)
[2018-04-05] MEDS: Calcium/Vitamin D 250/125 MG Tablet PO SCH (08:43)
[2018-04-05] MEDS: amLODIPine 5 MG Tablet PO SCH (08:43)
[2018-04-05] MEDS: Sod Chloride 0.9% Inj 1,000 ML IV.CONT SCH (10:18)
[2018-04-05 15:00] LABS: Anti-Nuclear Antibody Screen Neg (Neg)
--- NOTE | 2018-04-05 15:10 | ECHRPT ---
Indication: CVA/TIA CONCLUSIONS Normal left ventricular size and wall thickness. The left ventricular systolic function is mildly reduced with an estimated ejection fraction in the range of 45- 50%. The left atrial size is [id number] dilated. Moderate mitral annular calcification with mild-moderate mitral valve regurgitation. The estimated pulmonary arterial pressure is 53 mmHg. There is estimated moderate pulmonary hypertension present (range 50-60 mmHg). Trace pericardial effusion. BP: / HR: Rhythm: MEASUREMENTS (Male / Female) Normal Values Technical Quality: 2D ECHO LV Diastolic Diameter PLAX 4.4 cm 4.2 - 5.9 / 3.9 - 5.3 cm LV Systolic Diameter PLAX 3.4 cm IVS Diastolic Thickness 1.5 cm 0.6 - 1.0 / 0.6 - 0.9 cm LVPW Diastolic Thickness 1.3 cm 0.6 - 1.0 / 0.6 - 0.9 cm LV Relative Wall Thickness 0.6 LVOT Diameter 2.0 cm Aortic Root Diameter 2.0 cm LA Systolic Diameter LX 4.1 cm 3.0 - 4.0 / 2.7 - 3.8 cm LV Ejection Fraction MOD 4C 45.2 % LV Ejection Fraction 4C AL 48.1 % M-MODE Aortic Root Diameter MM 3.2 cm LA Systolic Diameter MM 4.0 cm LA Ao Ratio MM 1.3 AV Cusp Separation MM 1.7 cm DOPPLER AV Peak Velocity 160.0 cm/s AV Peak Gradient 10.2 mmHg LVOT Peak Velocity 104.0 cm/s LVOT Peak Gradient 4.3 mmHg AV Area Cont Eq pk 2.0 cm MV Peak Velocity 152.0 cm/s MV Peak Gradient 9.2 mmHg MV Mean Velocity 86.1 cm/s MV Mean Gradient 3.0 mmHg MV Area PHT 2.3 cm Mitral E Point Velocity 150.0 cm/s Mitral A Point Velocity 138.0 cm/s Mitral E to A Ratio 1.1 LV E' Lateral Velocity 4.2 cm/s Mitral E to LV E' Lateral Ratio 35.8 LV E' Septal Velocity 4.5 cm/s Mitral E to LV E' Septal Ratio 33.5 TR Peak Velocity 327.0 cm/s TR Peak Gradient 42.8 mmHg Right Atrial Pressure 10.0 mmHg Pulmonary Artery Systolic Pressu 52.8 mmHg Right Ventricular Systolic Press 52.8 mmHg PV Peak Velocity 71.9 cm/s PV Peak Gradient 2.1 mmHg FINDINGS LEFT VENTRICLE Wall thickness is normal. Normal left ventricular size. The left ventricular systolic function is mildly reduced with an estimated ejection fraction in the range of 45- 50%. RIGHT VENTRICLE Normal right ventricular size and systolic function. LEFT ATRIUM The left atrial size is [id number] dilated. RIGHT ATRIUM The right atrial size is normal. ATRIAL SEPTUM Normal atrial septal thickness without atrial level shunting by limited color doppler interrogation. AORTA The aortic root and proximal ascending aorta are normal in size on limited imaging. MITRAL VALVE Riwc-tf-[id number] mitral valve regurgitation. Moderate mitral annular calcification. AORTIC VALVE Diffuse calcification of the aortic valve. TRICUSPID VALVE The estimated pulmonary arterial pressure is 53 mmHg. There is estimated moderate pulmonary hypertension present (range 50-60 mmHg). PULMONARY VALVE No pulmonary valve regurgitation or stenosis. VESSELS The inferior vena cava is normal in size. PERICARDIUM Sliver of pericardial effusion. Edmond West MD (Electronically Signed) Final Date:05 April 2018 15:09
--- NOTE | 2018-04-05 15:55 | P.PNID ---
Subjective Remarks: Patient says that she feels better. She is awake and alert. Denies chills. Afebrile. Blood culture has E. coli. Urine culture has E. coli. This is an 87-year-old white female who was admitted to the hospital after presenting to the emergency department with altered mental status. The patient has history of dementia. PAST MEDICAL HISTORY: Dementia, hypertension, hypothyroidism, anemia, history of cholecystectomy, history of hip replacement. Allergies/Adverse Reactions: Allergies penicillin G Allergy (Severe, Verified 04/02/18 13:55) TONGUE/ FACIAL SWELLING etodolac Adverse Reaction (Severe, Verified 04/02/18 13:55) ANXIETY, AGITATION zolpidem Adverse Reaction (Severe, Verified 04/02/18 13:55) HALLUCINATIONS Objective Vital Signs 04/04/18 15:59 04/04/18 20:00 04/04/18 20:30 Temperature 98.2 F 97.2 F L Pulse Rate 71 86 90 Respiratory Rate 18 20 Blood Pressure 111/59 L 160/72 H Pulse Oximetry 96 98 04/05/18 00:00 04/05/18 00:30 04/05/18 03:07 Temperature 98.0 F Pulse Rate 92 H 95 H Respiratory Rate 21 18 Blood Pressure 185/87 H Pulse Oximetry 95 04/05/18 04:00 04/05/18 04:30 04/05/18 08:00 Temperature 98.2 F 98.6 F Pulse Rate 84 101 H 71 Respiratory Rate 18 20 Blood Pressure 172/77 H 150/70 H Pulse Oximetry 94 L 94 L 04/05/18 09:00 04/05/18 12:00 Temperature 98.0 F Pulse Rate 79 75 Respiratory Rate 20 Blood Pressure 148/62 H Pulse Oximetry 95 Intake & Output 04/04/18 04/05/18 04/05/18 18:59 06:59 18:59 Intake Total 2280 / 2280 1100 / 1100 340 / 340 Balance 2280 / 2280 1100 / 1100 340 / 340 Weight 65.5 kg Intake: IV 1200 / 1200 1100 / 1100 100 / 100 NS Inj 1,000 ML @ 84 mls/hr IV. 1000 / 1000 1000 / 1000 CONT .[id number] [facility] Rx#:[id number] Azactam Inj 1,000 MG In NS Inj 200 / 200 100 / 100 100 / 100 100 ML @ 200 mls/hr IV.SIG Q8H [facility] Rx#:[id number] Oral 1080 / 1080 240 / 240 Other: # Voids 5 2 1 # Incontinent Voids 3 Date of Last Bowel Movement 04/05/18 04/04/18 # Bowel Movements 4 1 1 04/02/18 16:05 Blood - Line Aerobic Blood Culture - Final Escherichia coli 04/02/18 16:05 Blood - Line Anaerobic Blood Culture - Preliminary No growth in 3 days 04/02/18 16:00 Blood - Line Aerobic Blood Culture - Final Escherichia coli 04/02/18 16:00 Blood - Line Anaerobic Blood Culture - Preliminary No growth in 3 days 04/02/18 15:45 Clean Catch Urine Urine Culture - Final Escherichia coli Lab - Hematology Results 04/05/18 06:40 WBC 9.7 RBC 3.47 L Hgb 10.9 L Hct 31.8 L MCV 91.5 MCH 31.5 MCHC 34.4 RDW 21.8 H Plt Count 108 L MPV 9.0 Lab - Chemistry Results 04/03/18 04/03/18 04/04/18 04:32 22:24 07:44 Sodium Potassium Chloride Carbon Dioxide Anion Gap BUN Creatinine Estimated GFR POC Glucose 113 H 83 Random Glucose Calcium Vitamin B12 1602 H 04/04/18 04/04/18 04/04/18 12:22 17:14 20:57 Sodium Potassium Chloride Carbon Dioxide Anion Gap BUN Creatinine Estimated GFR POC Glucose 121 H 134 H 113 H Random Glucose Calcium Vitamin B12 04/05/18 04/05/18 04/05/18 06:40 08:02 13:17 Sodium 143 Potassium 2.9 L* Chloride 111 H Carbon Dioxide 24.1 Anion Gap 8 BUN 18 Creatinine 0.75 Estimated GFR 73 L POC Glucose 102 92 Random Glucose 104 Calcium 7.5 L Vitamin B12 Imaging: ITS Impressions Chest X-Ray 04/02/18 14:03 CONCLUSION: Negative examination. Head CT 04/02/18 14:03 CONCLUSION: 1. Atrophy and white matter disease. 2. Age indeterminate small focus of low density in the left basal ganglia measuring 1.1 cm. MRI may be helpful for further evaluation. . Head MRI 04/02/18 15:09 CONCLUSION: 1. Small acute to subacute lacunar type infarct involving the left basal ganglia with restricted diffusion. 2. No evidence of hemorrhage or mass effect. 3. Atrophy and chronic small vessel ischemic changes. Carotid Doppler Study 04/03/18 00:00 CONCLUSION: 1. Right Internal Carotid Artery: Findings indicate <50% stenosis. 2. Left Internal Carotid Artery: Findings indicate <50% stenosis. Neck MRA 04/03/18 00:00 CONCLUSION: 1. Focal narrowing in the left carotid bulb with approximately 60% stenosis. 2. No significant stenosis is identified within the right internal carotid artery. 3. Left vertebral artery is dominant. Percent stenosis is calculated using the diameter of the stenotic region over the diameter of the normal distal internal carotid artery Head MRA 04/03/18 11:01 CONCLUSION: 1. There is asymmetric decreased flow related enhancement within the right M1 segment. 2. 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 3. Diminutive right distal vertebral artery. Physical Exam: PHYSICAL EXAMINATION: GENERAL: No acute distress. HEENT: Extraocular movements are grossly intact. Pupils reactive to light. No icterus. Oropharynx slightly dry mucosa. No visible lesions. NECK: Supple, no adenopathy. LUNGS: Clear breath sounds. HEART: Regular S1 and S2, without murmurs. ABDOMEN: Bowel sounds present. Soft, nontender. EXTREMITIES: No clubbing, cyanosis or edema. SKIN: No rash. NEUROLOGIC: Nonfocal. PSYCHIATRIC: calm. Assessment and Plan - Plan ASSESSMENT: 1. Sepsis/bacteremia due to Escherichia coli. The patient presented with fever and altered mental status (sepsis). 2. Urinary tract infection due to E. coli. 3. Altered mental status appears slightly improved. 4. ALLERGY TO PENICILLIN. Appears to be improving. RECOMMENDATIONS: 1. Continue aztreonam. 2. Repeat blood culture. 3. Monitor clinical status.
--- NOTE | 2018-04-05 16:30 | P.PNIM ---
Subjective Interval history: Patient reports she is feeling okay today. Discussed with nursing. No new issues. Physical Exam Vital signs: Vital Signs 04/04/18 20:00 04/04/18 20:30 04/05/18 00:00 Temperature 97.2 F L 98.0 F Pulse Rate 86 90 92 H Respiratory Rate 20 21 Blood Pressure 160/72 H 185/87 H Pulse Oximetry 98 95 04/05/18 00:30 04/05/18 03:07 04/05/18 04:00 Temperature 98.2 F Pulse Rate 95 H 84 Respiratory Rate 18 18 Blood Pressure 172/77 H Pulse Oximetry 94 L 04/05/18 04:30 04/05/18 08:00 04/05/18 09:00 Temperature 98.6 F Pulse Rate 101 H 71 79 Respiratory Rate 20 Blood Pressure 150/70 H Pulse Oximetry 94 L 04/05/18 12:00 Temperature 98.0 F Pulse Rate 75 Respiratory Rate 20 Blood Pressure 148/62 H Pulse Oximetry 95 Intake & Output 04/04/18 04/05/18 04/05/18 18:59 06:59 18:59 Intake Total 2280 / 2280 1100 / 1100 340 / 340 Balance 2280 / 2280 1100 / 1100 340 / 340 Weight 65.5 kg Intake: IV 1200 / 1200 1100 / 1100 100 / 100 NS Inj 1,000 ML @ 84 mls/hr IV. 1000 / 1000 1000 / 1000 CONT .[id number] [facility] Rx#:[id number] Azactam Inj 1,000 MG In NS Inj 200 / 200 100 / 100 100 / 100 100 ML @ 200 mls/hr IV.SIG Q8H [facility] Rx#:[id number] Oral 1080 / 1080 240 / 240 Other: # Voids 5 2 1 # Incontinent Voids 3 Date of Last Bowel Movement 04/05/18 04/04/18 # Bowel Movements 4 1 1 Narrative: GENERAL: Elderly female in no acute distress. CARDIOVASCULAR: Regular rate and rhythm without murmurs, gallops, or rubs. RESPIRATORY: Clear to auscultation. Breath sounds equal bilaterally. No wheezes , rales, or rhonchi. GASTROINTESTINAL: Abdomen soft, non-tender, nondistended. Normal active bowel sounds MUSCULOSKELETAL: Extremities without clubbing, cyanosis, or edema. NEURO: Awake and alert. At times confused about her current situation. Generalized weakness. Nonfocal. - Urinary Catheter Management Straight Cath placed during this visit: yes Reason for continuing: Not indwelling catheter Insertion time: 15:40 Results - Labs CBC & Chem 7: 04/05/18 06:40 04/05/18 06:40 Laboratory Results - last 24 hr 04/04/18 04/04/18 04/04/18 06:58 17:14 20:57 WBC RBC Hgb Hct MCV MCH MCHC RDW Plt Count MPV Sodium Potassium Chloride Carbon Dioxide Anion Gap BUN Creatinine Estimated GFR POC Glucose 134 H 113 H Random Glucose Calcium CANDIE Screen Neg RPR Nonreactive 04/05/18 04/05/18 04/05/18 06:40 06:40 08:02 WBC 9.7 RBC 3.47 L Hgb 10.9 L Hct 31.8 L MCV 91.5 MCH 31.5 MCHC 34.4 RDW 21.8 H Plt Count 108 L MPV 9.0 Sodium 143 Potassium 2.9 L* Chloride 111 H Carbon Dioxide 24.1 Anion Gap 8 BUN 18 Creatinine 0.75 Estimated GFR 73 L POC Glucose 102 Random Glucose 104 Calcium 7.5 L CANDIE Screen RPR 04/05/18 13:17 WBC RBC Hgb Hct MCV MCH MCHC RDW Plt Count MPV Sodium Potassium Chloride Carbon Dioxide Anion Gap BUN Creatinine Estimated GFR POC Glucose 92 Random Glucose Calcium CANDIE Screen RPR Microbiology 04/02/18 16:05 Blood - Line Aerobic Blood Culture - Final Escherichia coli 04/02/18 16:05 Blood - Line Anaerobic Blood Culture - Preliminary No growth in 3 days 04/02/18 16:00 Blood - Line Aerobic Blood Culture - Final Escherichia coli 04/02/18 16:00 Blood - Line Anaerobic Blood Culture - Preliminary No growth in 3 days Assessment and Plan - Plan 87-year-old female with a history of hypertension, dementia and anemia was brought to the ED for evaluation of altered mental status. Patient found to have an acute CVA and severe sepsis secondary to UTI. CVA, acute Head MRI shows a small acute to subacute lacunar type infarct involving the left basal ganglia with restricted diffusion -Appreciate neurology input. Patient started on aspirin. -2D echo showed mildly reduced LVEF of 45-50%. -Monitor telemetry -A1C and lipids okay. -Carotid US with less than 50% stenosis Severe Sepsis secondary to UTI/gram-negative leandro bacteremia -2 L bolus given in ED, lactic resolved to 0.9 -Blood cultures growing gram-negative rods -Continue IV antibiotics with aztreonam -Appreciate infectious disease following. Repeat blood cultures. Acute kidney injury, creatine 1.7, baseline .7, likely due to infection and dehydration -Renal functions normalized with IV fluid. DC IV fluid. Avoid nephrotoxins. HTN, chronic -Continue amlodipine. Clonidine as needed. -Monitor vitals Dementia, chronic -Resume home dose Aricept History of gastric ulcers: - Continue PPI twice a day. Previously discussed risk and benefit with the patient's daughter. She understands the benefit of aspirin outweigh the risk at this time. Patient will be closely monitored. DVT prophylaxis: Heparin sq Discharge Planning: Follow blood cultures and ID input. Patient will need SNF placement.
[2018-04-05] MEDS: Montelukast 10 MG Tablet PO SCH (17:06)
[2018-04-06] MEDS: Levothyroxine 50 MCG Tablet PO SCH (05:54)
--- NOTE | 2018-04-06 08:17 | P.PNNEU ---
Subjective Subjective Comments: sr Active Medications: Active Medications Acetaminophen (Tylenol) 650 mg PO Q4H PRN PRN Reason: fever or bowman Last Admin: 04/04/18 12:22 Dose: 650 mg Amlodipine Besylate (Norvasc) 5 mg PO DAILY [facility] Last Admin: 04/05/18 08:43 Dose: 5 mg Aspirin (Ecotrin) 81 mg PO DAILY [facility] Last Admin: 04/05/18 08:43 Dose: 81 mg Atorvastatin Calcium (Lipitor) 10 mg PO DAILY [facility] Last Admin: 04/05/18 08:43 Dose: 10 mg Calcium/Vitamin D (Oscal With D 250/125 Mg) 2 tab PO DAILY [facility] Last Admin: 04/05/18 08:43 Dose: 2 tab Clonidine HCl (Catapres) 0.1 mg PO Q6H PRN PRN Reason: SYS BP GREATER THAN 180 [facility] Last Admin: 04/06/18 01:50 Dose: 0.1 mg Dextrose (D50w Vial) 50 ml IV.PUSH UNSCH PRN PRN Reason: PER HYPOGLYCEMIA PROTOCOL Donepezil HCl (Aricept) 23 mg PO DAILY [facility] Last Admin: 04/05/18 08:43 Dose: 23 mg Ferrous Sulfate (Ferosul) 325 mg PO DAILY [facility] Last Admin: 04/05/18 08:43 Dose: 325 mg Glucagon (Glucagon Inj) 1 mg OTHER UNSCH PRN PRN Reason: for Hypoglycemia Protocol Heparin Sodium (Porcine) (Heparin Inj) 5,000 units SQ Q12H [facility] Last Admin: 04/05/18 20:11 Dose: 5,000 units Aztreonam 1,000 mg/ Sodium (Chloride) 100 mls @ 200 mls/hr IV.SIG Q8H [facility] Last Infusion: 04/06/18 00:04 Dose: Infused Insulin Aspart (Novolog Insulin Correctional Sugar Inj) 0 unit SQ ACHS [facility]; Protocol Last Admin: 04/05/18 23:10 Dose: Not Given Levothyroxine Sodium (Synthroid) 50 mcg PO DAILY@0600 [facility] Last Admin: 04/06/18 05:54 Dose: 50 mcg Montelukast Sodium (Singulair) 10 mg PO DAILY@1800 [facility] Last Admin: 04/05/18 17:06 Dose: 10 mg Pantoprazole Sodium (Protonix) 40 mg PO BID [facility] Last Admin: 04/05/18 20:10 Dose: 40 mg Pravastatin Sodium (Pravachol) 40 mg PO HS [facility] Last Admin: 04/05/18 20:10 Dose: 40 mg Pregabalin (Lyrica) 150 mg PO BID [facility] Last Admin: 04/05/18 20:10 Dose: 150 mg Sodium Chloride (Ns Flush) 2 ml IV.FLUSH BID [facility] Last Admin: 04/05/18 20:12 Dose: 2 ml Sodium Chloride (Ns Flush) 2 ml IV.FLUSH PRN PRN PRN Reason: FLUSH AFTER USING IV ACCESS Venlafaxine HCl (Effexor Xr) 150 mg PO DAILY [facility] Last Admin: 04/05/18 08:43 Dose: 150 mg Allergies/Adverse Reactions: Allergies Allergy/AdvReac Type Severity Reaction Status Date / Time penicillin G Allergy Severe TONGUE/ Verified 04/02/18 13:55 FACIAL SWELLING etodolac AdvReac Severe ANXIETY, Verified 04/02/18 13:55 AGITATION zolpidem AdvReac Severe HALLUCINATI Verified 04/02/18 13:55 ONS Physical Exam Vital signs: Vital Signs 04/05/18 09:00 04/05/18 12:00 04/05/18 16:00 Temperature 98.0 F 99.2 F Pulse Rate 79 75 84 Respiratory Rate 20 20 Blood Pressure 148/62 H 164/73 H Pulse Oximetry 95 99 04/05/18 20:00 04/05/18 20:30 04/06/18 00:00 Temperature 97.7 F 98.1 F Pulse Rate 83 97 H 87 Respiratory Rate 17 19 Blood Pressure 119/85 193/82 H Pulse Oximetry 98 97 04/06/18 00:30 04/06/18 04:00 04/06/18 04:30 Temperature 98.3 F Pulse Rate 87 79 66 Respiratory Rate 16 Blood Pressure 100/65 Pulse Oximetry 95 Intake & Output 04/05/18 04/06/18 04/06/18 18:59 06:59 18:59 Intake Total 940 / 940 100 / 100 Balance 940 / 940 100 / 100 Weight 64.7 kg Intake: IV 700 / 700 100 / 100 NS Inj 1,000 ML @ 84 mls/hr IV. 500 / 500 CONT .[id number] [facility] Rx#:[id number] Azactam Inj 1,000 MG In NS Inj 200 / 200 100 / 100 100 ML @ 200 mls/hr IV.SIG Q8H [facility] Rx#:[id number] Oral 240 / 240 Other: # Voids 1 # Incontinent Voids 1 Date of Last Bowel Movement 04/05/18 04/05/18 # Bowel Movements 1 Narrative: awake seems not so happy vff face sym 10/10 - Urinary Catheter Management Straight Cath placed during this visit: yes Reason for continuing: Not indwelling catheter Insertion time: 15:40 Objective Laboratory Results - last 24 hr 04/04/18 04/05/18 04/05/18 06:58 06:40 13:17 Sodium 143 Potassium 2.9 L* Chloride 111 H Carbon Dioxide 24.1 Anion Gap 8 BUN 18 Creatinine 0.75 Estimated GFR 73 L POC Glucose 92 Random Glucose 104 Calcium 7.5 L CANDIE Screen Neg RPR Nonreactive 04/05/18 04/05/18 04/06/18 17:04 23:08 07:24 Sodium Potassium Chloride Carbon Dioxide Anion Gap BUN Creatinine Estimated GFR POC Glucose 95 73 92 Random Glucose Calcium CANDIE Screen RPR Microbiology 04/02/18 16:05 Aerobic Blood Culture - Final Blood - Line Escherichia coli Anaerobic Blood Culture - Preliminary No growth in 3 days 04/02/18 16:00 Aerobic Blood Culture - Final Blood - Line Escherichia coli Anaerobic Blood Culture - Preliminary No growth in 3 days Review/Management - Review/Management Plan: imp left deep cva 60% or less left ica cow some dz not severe ldl nl on 81 asa labs pend bld cx pos echo and holter pend eeg shows sharps will start low dose keppra nd push up in few days oob ok some of the tele strips hard to tell if sr or not MED TEAM PLZ REVIEW ALL THE TELE STRIPS AND IF THINK ANY AFIB CALL CARDS 04/05/18 i am still unclear as to rhythm as noted above med team plz clarify on asa if not afib and echo nl and holter done could dc on keppra and asa 81mg with hx gi bleed and fu office 04/06/18 cards to see about rhythm stable neuro echo neg holter pend
[2018-04-06 08:45] LABS: Hematocrit 39.4 % (35.0-46.0); Hemoglobin 13.2 gm/dL (11.6-15.3); Mean Corpuscular HGB Conc 33.6 % (32.0-36.0); Mean Corpuscular Hemoglobin 31.2 pg (27.0-34.0); Mean Corpuscular Volume 92.8 fL (80.0-100.0); Mean Platelet Volume 9.3 fL (7.0-11.0); Platelet Count 120 th/mm3 (150-450); Red Blood Count 4.24 mil/mm3 (4.00-5.30); Red Cell Distribution Width 20.8 % (11.6-17.2); White Blood Count 10.4 th/mm3 (4.0-11.0)
[2018-04-06 09:15] LABS: Calcium 8.3 mg/dL (8.5-10.1); Carbon Dioxide 26.9 meq/L (21.0-32.0)
[2018-04-06] MEDS: Insulin NovoLOG Aspart Correctional Sugar Inj SQ SCH ×4 (09:18→22:40)
[2018-04-06 09:19] LABS: Potassium 2.8 meq/L (3.5-5.1)
[2018-04-06] MEDS: Calcium/Vitamin D 250/125 MG Tablet PO SCH (09:20)
[2018-04-06] MEDS: Heparin - SQ 10,000 UNITS/ML Vial SQ SCH ×2 (09:21→22:36)
[2018-04-06] MEDS: Ferrous Sulfate 325 MG Tablet PO SCH (09:21)
[2018-04-06] MEDS: amLODIPine 5 MG Tablet PO SCH (09:21)
[2018-04-06] MEDS: Pregabalin 75 MG Capsule PO SCH ×2 (09:31→22:38)
[2018-04-06] MEDS: Venlafaxine XR 75 MG Capsule PO SCH (09:31)
--- NOTE | 2018-04-06 10:48 | P.PNIM ---
Subjective Interval history: Patient reports she is feeling okay today. She denies any pain. No new neurological symptoms. Physical Exam Vital signs: Vital Signs 04/05/18 12:00 04/05/18 16:00 04/05/18 20:00 Temperature 98.0 F 99.2 F 97.7 F Pulse Rate 75 84 83 Respiratory Rate 20 20 17 Blood Pressure 148/62 H 164/73 H 119/85 Pulse Oximetry 95 99 98 04/05/18 20:30 04/06/18 00:00 04/06/18 00:30 Temperature 98.1 F Pulse Rate 97 H 87 87 Respiratory Rate 19 Blood Pressure 193/82 H Pulse Oximetry 97 04/06/18 04:00 04/06/18 04:30 04/06/18 08:00 Temperature 98.3 F 98.2 F Pulse Rate 79 66 89 Respiratory Rate 16 20 Blood Pressure 100/65 198/96 H Pulse Oximetry 95 96 Intake & Output 04/05/18 04/06/18 04/06/18 18:59 06:59 18:59 Intake Total 940 / 940 100 / 100 100 / 100 Balance 940 / 940 100 / 100 100 / 100 Weight 64.7 kg Intake: IV 700 / 700 100 / 100 100 / 100 NS Inj 1,000 ML @ 84 mls/hr IV. 500 / 500 CONT .[id number] [facility] Rx#:[id number] Azactam Inj 1,000 MG In NS Inj 200 / 200 100 / 100 100 / 100 100 ML @ 200 mls/hr IV.SIG Q8H [facility] Rx#:[id number] Oral 240 / 240 Other: # Voids 1 # Incontinent Voids 1 1 Date of Last Bowel Movement 04/05/18 04/05/18 04/06/18 # Bowel Movements 1 1 Narrative: GENERAL: Elderly female in no acute distress. CARDIOVASCULAR: Regular rate and rhythm without murmurs, gallops, or rubs. RESPIRATORY: Clear to auscultation. Breath sounds equal bilaterally. No wheezes , rales, or rhonchi. GASTROINTESTINAL: Abdomen soft, non-tender, nondistended. Normal active bowel sounds MUSCULOSKELETAL: Extremities without clubbing, cyanosis, or edema. NEURO: Awake and alert. At times confused about her current situation. Generalized weakness. No focal symptoms. - Urinary Catheter Management Straight Cath placed during this visit: yes Reason for continuing: Not indwelling catheter Insertion time: 15:40 Results - Labs CBC & Chem 7: 04/06/18 06:35 04/06/18 06:35 Laboratory Results - last 24 hr 04/04/18 04/05/18 04/05/18 06:58 13:17 17:04 WBC RBC Hgb Hct MCV MCH MCHC RDW Plt Count MPV Sodium Potassium Chloride Carbon Dioxide Anion Gap BUN Creatinine Estimated GFR POC Glucose 92 95 Random Glucose Calcium CANDIE Screen Neg 04/05/18 04/06/18 04/06/18 23:08 06:35 06:35 WBC 10.4 RBC 4.24 Hgb 13.2 D Hct 39.4 MCV 92.8 MCH 31.2 MCHC 33.6 RDW 20.8 H Plt Count 120 L MPV 9.3 Sodium 144 Potassium 2.8 L* Chloride 108 H Carbon Dioxide 26.9 Anion Gap 9 BUN 13 Creatinine 0.67 Estimated GFR 83 L POC Glucose 73 Random Glucose 83 Calcium 8.3 L D CANDIE Screen 04/06/18 07:24 WBC RBC Hgb Hct MCV MCH MCHC RDW Plt Count MPV Sodium Potassium Chloride Carbon Dioxide Anion Gap BUN Creatinine Estimated GFR POC Glucose 92 Random Glucose Calcium CANDIE Screen Microbiology 04/02/18 16:05 Blood - Line Aerobic Blood Culture - Final Escherichia coli 04/02/18 16:05 Blood - Line Anaerobic Blood Culture - Preliminary No growth in 3 days 04/02/18 16:00 Blood - Line Aerobic Blood Culture - Final Escherichia coli 04/02/18 16:00 Blood - Line Anaerobic Blood Culture - Preliminary No growth in 3 days Assessment and Plan - Plan 87-year-old female with a history of hypertension, dementia and anemia was brought to the ED for evaluation of altered mental status. Patient found to have an acute CVA and severe sepsis secondary to UTI. CVA, acute Head MRI shows a small acute to subacute lacunar type infarct involving the left basal ganglia with restricted diffusion -Appreciate neurology input. Patient started on aspirin. -2D echo showed mildly reduced LVEF of 45-50%. -Monitor telemetry, sinus arrhythmia versus A. fib. Cardiology consulted to assist with rhythm -A1C and lipids okay. -Carotid US with less than 50% stenosis Severe Sepsis secondary to UTI/gram-negative leandro bacteremia -2 L bolus given in ED, lactic resolved to 0.9 -Blood cultures grew E. coli -Continue IV antibiotics with aztreonam -Appreciate infectious disease following. Repeat blood cultures negative times 1 day.. Acute kidney injury, creatine 1.7, baseline .7, likely due to infection and dehydration -Renal functions normalized with IV fluid. IV fluid discontinued. Avoid nephrotoxins. HTN, chronic -Continue amlodipine. Clonidine as needed. -Monitor vitals Dementia, chronic -Resume home dose Aricept History of gastric ulcers: - Continue PPI twice a day. Previously discussed risk and benefit with the patient's daughter. She understands the benefit of aspirin outweigh the risk at this time. Patient will be closely monitored. Hypokalemia: - Replace and monitor. Check mag. DVT prophylaxis: Heparin sq Discharge Planning: Follow blood cultures and ID input. Patient will need SNF placement. Bianca White.
[2018-04-06] MEDS: Potassium Chlor 20 mEq Premix 20 MEQ/100 ML PIGGYBACK IV.SIG SCH ×2 (12:20→18:03)
--- NOTE | 2018-04-06 15:50 | ECG ---
Date Performed: 04/05/2018 Time Performed: 19:57:45 PTAGE: 87 years EKG: Ectopic atrial rhythm POSSIBLE LATERAL MYOCARDIAL INFARCTION , OF INDETERMINATE AGE ABNORMA L ECG PREVIOUS TRACING : 04/02/2018 15.01 DOCTOR: Bertram Mcgregor Interpretating Date/Time 04/06/2018 15:48:44
[2018-04-06] MEDS: Montelukast 10 MG Tablet PO SCH (18:05)
--- NOTE | 2018-04-06 23:35 | MB ---
cc: Chalino Cabello DO DATE: 04/06/2018 REASON FOR CONSULTATION: CVA, consideration of atrial fibrillation. HISTORY OF PRESENT ILLNESS: Marcie Morgan is a pleasant 87-year-old female who presented to [facility] due to altered mental status. The patient has baseline dementia and so some of the history is taken from her, the chart, as well as talking with her daughter over the phone. It appears that she originally came in due to altered mental status and 4 days prior to this, she was slumped over on the toilet and was taken back to bed. At that time, she had slurred speech and had been more confused than normal. She was seen by neurology and she was found to have a small [id number] lacunar-type infarct involving the left basal ganglia. On telemetry, there was concern for possible atrial fibrillation. I was asked to see her to further determine rhythms and consideration of anticoagulation. PAST MEDICAL HISTORY: 1. Anemia. 2. Dementia. 3. Hypertension. 4. Hypothyroidism. 5. History of bleeding ulcer. PAST SURGICAL HISTORY: 1. Hip replacement. 2. Cholecystectomy. ALLERGIES: 1. PENICILLIN. 2. ETODOLAC. 3. ZOLPIDEM. MEDICATIONS: 1. Iron 325 mg daily. 2. Singulair 10 mg every night. 3. Hydrochlorothiazide 25 mg daily. 4. Hydrocodone/acetaminophen 10/325 mg every 6 hours as needed. 5. Effexor 150 mg daily. 6. Lyrica 150 mg b.i.d. 7. Protonix 40 mg b.i.d. 8. Aricept 23 mg daily. 9. Lipitor 10 mg daily. 10. Synthroid 50 mcg daily. SOCIAL HISTORY: Denies tobacco, alcohol or drug abuse. FAMILY HISTORY: Denies sudden cardiac within the family. REVIEW OF SYSTEMS: Fourteen systems were reviewed including osteopathic. Pertinent positives and negatives above, otherwise negative. PHYSICAL EXAMINATION: VITAL SIGNS: Temperature 98.0, heart rate 78, blood pressure 172/80, respirations 20, pulse oximetry 98% on room air. GENERAL: The patient appears well, in no acute distress. Alert and awake. HEENT: Extraocular muscles intact. Mucous membranes moist. NECK: Supple. No JVD at 45 degrees. No carotid bruits heard bilaterally. Carotid upstroke is brisk in nature. HEART: Regular rate and rhythm. Positive first and second heart sounds with no murmurs, gallops or rubs. LUNGS: Clear to auscultation bilaterally. No wheezes, rales or rhonchi. ABDOMEN: Soft, nontender, nondistended. No organomegaly noted. EXTREMITIES: Show no clubbing, cyanosis or edema. Femoral and distal pulses intact bilaterally. NEUROLOGIC: No focal deficits. SKIN: Warm, dry and intact. OSTEOPATHIC: No kyphoscoliosis, lordosis or paraspinal tender points. LABORATORY DATA: Hemoglobin 13.2, hematocrit 39.4, platelets 120. Potassium 2.8, BUN 13, creatinine 0.67. Electrocardiogram (04/05/2018 at 1957 hours): Sinus rhythm, possible lateral myocardial infarct of indeterminate age. IMPRESSION: 1. [id number] cerebrovascular accident. 2. Questionable atrial fibrillation. 3. Hypertension. 4. Acute kidney injury. 5. Dementia. 6. History of gastric ulcer. RECOMMENDATIONS: 1. Ms. Morgan presented with what appears to be an acute or subacute cerebrovascular accident and has been further evaluated by neurology with their recommendations. 2. There is a question of atrial fibrillation on telemetry. Review of telemetry shows mostly sinus rhythm with multiple episodes of PACs and PVCs, but there are components that appear to have significant irregularity with no P waves consistent with probable atrial fibrillation. 3. I did speak to the patient's daughter, Maryuri, about the situation and consideration of anticoagulation. Her major concern is with her previous history of an ulcer where she has had 2 significant episodes of bleeding. Ultimately, she would like her only on aspirin 81 mg daily and understands that she will have a risk for further stroke by doing this, but we will hopefully not take the risk of further bleeding from her ulcer. No further cardiovascular workup at this time. Thank you for allowing me to see Marcie Morgan. If there are any questions, please do not hesitate to call. DO ELIUD Evans/candi , 10:41 PM , 10:56 PM
[2018-04-07 07:22] LABS: Hematocrit 33.7 % (35.0-46.0); Hemoglobin 11.5 gm/dL (11.6-15.3); Mean Corpuscular Hemoglobin 31.2 pg (27.0-34.0); Mean Corpuscular Volume 91.7 fL (80.0-100.0); Mean Platelet Volume 8.4 fL (7.0-11.0); Platelet Count 138 th/mm3 (150-450); Red Blood Count 3.68 mil/mm3 (4.00-5.30); Red Cell Distribution Width 20.6 % (11.6-17.2); White Blood Count 9.4 th/mm3 (4.0-11.0)
[2018-04-07] MEDS: Levothyroxine 50 MCG Tablet PO SCH (07:25)
[2018-04-07 07:46] LABS: Anion Gap 9 meq/L (5-15); Blood Urea Nitrogen 12 mg/dL (7-18); Carbon Dioxide 30.4 meq/L (21.0-32.0); Chloride 106 meq/L (98-107); Glomerular Filtration Rate Greater Than 89 mL/min (>89); Glucose,Random 92 mg/dL (74-106); Sodium 145 meq/L (136-145)
[2018-04-07 07:48] LABS: Potassium 2.8 meq/L (3.5-5.1)
--- NOTE | 2018-04-07 08:10 | P.PNNEU ---
Subjective Active Medications: Active Medications Acetaminophen (Tylenol) 650 mg PO Q4H PRN PRN Reason: fever or bowman Last Admin: 04/04/18 12:22 Dose: 650 mg Amlodipine Besylate (Norvasc) 5 mg PO DAILY [facility] Last Admin: 04/06/18 09:21 Dose: 5 mg Aspirin (Ecotrin) 81 mg PO DAILY [facility] Last Admin: 04/06/18 09:20 Dose: 81 mg Atorvastatin Calcium (Lipitor) 10 mg PO DAILY [facility] Last Admin: 04/06/18 09:21 Dose: 10 mg Calcium/Vitamin D (Oscal With D 250/125 Mg) 2 tab PO DAILY [facility] Last Admin: 04/06/18 09:20 Dose: 2 tab Clonidine HCl (Catapres) 0.1 mg PO Q6H PRN PRN Reason: SYS BP GREATER THAN 180 [facility] Last Admin: 04/06/18 18:15 Dose: 0.1 mg Dextrose (D50w Vial) 50 ml IV.PUSH UNSCH PRN PRN Reason: PER HYPOGLYCEMIA PROTOCOL Donepezil HCl (Aricept) 23 mg PO DAILY [facility] Last Admin: 04/06/18 09:21 Dose: 23 mg Ferrous Sulfate (Ferosul) 325 mg PO DAILY [facility] Last Admin: 04/06/18 09:21 Dose: 325 mg Glucagon (Glucagon Inj) 1 mg OTHER UNSCH PRN PRN Reason: for Hypoglycemia Protocol Heparin Sodium (Porcine) (Heparin Inj) 5,000 units SQ Q12H [facility] Last Admin: 04/06/18 22:36 Dose: 5,000 units Aztreonam 1,000 mg/ Sodium (Chloride) 100 mls @ 200 mls/hr IV.SIG Q8H [facility] Last Infusion: 04/07/18 06:18 Dose: Infused Potassium Chloride (Kcl 20 Meq Premix Inj) 20 meq in 100 mls @ 50 mls/hr IV.SIG Q2H [facility] Stop: 04/07/18 12:59 Insulin Aspart (Novolog Insulin Correctional Sugar Inj) 0 unit SQ ACHS [facility]; Protocol Last Admin: 04/06/18 22:40 Dose: Not Given Levothyroxine Sodium (Synthroid) 50 mcg PO DAILY@0600 [facility] Last Admin: 04/07/18 07:25 Dose: 50 mcg Montelukast Sodium (Singulair) 10 mg PO DAILY@1800 [facility] Last Admin: 04/06/18 18:05 Dose: 10 mg Pantoprazole Sodium (Protonix) 40 mg PO BID [facility] Last Admin: 04/06/18 22:38 Dose: 40 mg Pravastatin Sodium (Pravachol) 40 mg PO HS [facility] Last Admin: 04/06/18 22:38 Dose: 40 mg Pregabalin (Lyrica) 150 mg PO BID [facility] Last Admin: 04/06/18 22:38 Dose: 150 mg Sodium Chloride (Ns Flush) 2 ml IV.FLUSH BID [facility] Last Admin: 04/06/18 22:39 Dose: Not Given Sodium Chloride (Ns Flush) 2 ml IV.FLUSH PRN PRN PRN Reason: FLUSH AFTER USING IV ACCESS Venlafaxine HCl (Effexor Xr) 150 mg PO DAILY [facility] Last Admin: 04/06/18 09:31 Dose: 150 mg Allergies/Adverse Reactions: Allergies Allergy/AdvReac Type Severity Reaction Status Date / Time penicillin G Allergy Severe TONGUE/ Verified 04/02/18 13:55 FACIAL SWELLING etodolac AdvReac Severe ANXIETY, Verified 04/02/18 13:55 AGITATION zolpidem AdvReac Severe HALLUCINATI Verified 04/02/18 13:55 ONS Physical Exam Vital signs: Vital Signs 04/06/18 12:00 04/06/18 16:00 04/06/18 20:00 Temperature 98.0 F 98.5 F 98.7 F Pulse Rate 78 78 94 H Respiratory Rate 20 18 21 Blood Pressure 172/80 H 195/88 H 186/84 H Pulse Oximetry 98 97 97 04/07/18 00:00 04/07/18 04:00 Temperature 97.8 F 97.7 F Pulse Rate 75 81 Respiratory Rate 18 16 Blood Pressure 176/26 H 185/84 H Pulse Oximetry 96 96 Intake & Output 04/06/18 04/07/18 04/07/18 18:59 06:59 18:59 Intake Total 540 / 540 100 / 100 Output Total 200 / 200 Balance 540 / 540 -100 / -100 Weight 63.2 kg Intake: IV 300 / 300 100 / 100 Azactam Inj 1,000 MG In NS Inj 200 / 200 100 / 100 100 ML @ 200 mls/hr IV.SIG Q8H [facility] Rx#:[id number] KCl 20 mEq Premix Inj 20 meq In 100 / 100 100 ml @ 50 mls/hr IV.SIG Q2H [facility] Rx#:[id number] Oral 240 / 240 Output: Urine 200 / 200 Other: # Voids 1 2 # Incontinent Voids 1 # Urine Diapers 3 Date of Last Bowel Movement 04/06/18 04/07/18 # Bowel Movements 1 2 Narrative: awake /10/10 - Urinary Catheter Management Straight Cath placed during this visit: yes Reason for continuing: Not indwelling catheter Insertion time: 15:40 Objective Laboratory Results - last 24 hr 04/06/18 04/06/18 04/06/18 06:35 06:35 06:35 WBC 10.4 RBC 4.24 Hgb 13.2 D Hct 39.4 MCV 92.8 MCH 31.2 MCHC 33.6 RDW 20.8 H Plt Count 120 L MPV 9.3 Sodium 144 Potassium 2.8 L* Chloride 108 H Carbon Dioxide 26.9 Anion Gap 9 BUN 13 Creatinine 0.67 Estimated GFR 83 L POC Glucose Random Glucose 83 Calcium 8.3 L D Magnesium 1.8 04/06/18 04/06/18 04/07/18 11:39 22:40 06:43 WBC 9.4 RBC 3.68 L Hgb 11.5 L Hct 33.7 L MCV 91.7 MCH 31.2 MCHC 34.0 RDW 20.6 H Plt Count 138 L MPV 8.4 Sodium Potassium Chloride Carbon Dioxide Anion Gap BUN Creatinine Estimated GFR POC Glucose 114 H 111 H Random Glucose Calcium Magnesium 04/07/18 04/07/18 06:43 07:16 WBC RBC Hgb Hct MCV MCH MCHC RDW Plt Count MPV Sodium 145 Potassium 2.8 L* Chloride 106 Carbon Dioxide 30.4 Anion Gap 9 BUN 12 Creatinine 0.59 Estimated GFR Greater than 89 POC Glucose 88 Random Glucose 92 Calcium 8.0 L Magnesium Microbiology 04/05/18 19:20 Aerobic Blood Culture - Preliminary Blood - Peripheral No growth in 1 day Anaerobic Blood Culture - Preliminary No growth in 1 day 04/02/18 16:05 Aerobic Blood Culture - Final Blood - Line Escherichia coli Anaerobic Blood Culture - Preliminary No growth in 4 days 04/02/18 16:00 Aerobic Blood Culture - Final Blood - Line Escherichia coli Anaerobic Blood Culture - Preliminary No growth in 4 days Review/Management - Review/Management Plan: imp left deep cva 60% or less left ica cow some dz not severe ldl nl on 81 asa labs pend bld cx pos echo and holter pend eeg shows sharps will start low dose keppra nd push up in few days oob ok some of the tele strips hard to tell if sr or not MED TEAM PLZ REVIEW ALL THE TELE STRIPS AND IF THINK ANY AFIB CALL CARDS 04/05/18 i am still unclear as to rhythm as noted above med team plz clarify on asa if not afib and echo nl and holter done could dc on keppra and asa 81mg with hx gi bleed and fu office 04/06/18 cards to see about rhythm stable neuro echo neg holter pend 04/07/18 cards unsure if afib or note holter pend on asa 81 keppra for abn eeg stable neuro daughter could call me if she thinks mom more lethargic on keppra seems a little sedate last few mornings ow could dc to ? rehab vs home PT
[2018-04-07] MEDS: Insulin NovoLOG Aspart Correctional Sugar Inj SQ SCH ×3 (08:38→16:19)
[2018-04-07] MEDS: Calcium/Vitamin D 250/125 MG Tablet PO SCH (08:38)
[2018-04-07] MEDS: Pregabalin 75 MG Capsule PO SCH ×2 (08:38→22:53)
[2018-04-07] MEDS: amLODIPine 5 MG Tablet PO SCH (08:38)
[2018-04-07] MEDS: Ferrous Sulfate 325 MG Tablet PO SCH (08:38)
[2018-04-07] MEDS: Heparin - SQ 10,000 UNITS/ML Vial SQ SCH ×2 (08:39→22:54)
[2018-04-07] MEDS: Venlafaxine XR 75 MG Capsule PO SCH (08:41)
[2018-04-07] MEDS ORDERED: Potassium Chlor 20 mEq Premix 20 MEQ/100 ML PIGGYBACK IV.SIG SCH (09:00)
--- NOTE | 2018-04-07 09:39 | P.PN ---
Subjective Interval history: telemetry- a fibr rhythm- rate controlled no diarrhea feels stronger seen with family at bedisde- history of hypokalemia- om po potassiums upplemennts Physical Exam Vital signs: Vital Signs 04/06/18 12:00 04/06/18 16:00 04/06/18 20:00 Temperature 98.0 F 98.5 F 98.7 F Pulse Rate 78 78 94 H Respiratory Rate 20 18 21 Blood Pressure 172/80 H 195/88 H 186/84 H Pulse Oximetry 98 97 97 04/07/18 00:00 04/07/18 04:00 04/07/18 08:00 Temperature 97.8 F 97.7 F 99.3 F Pulse Rate 75 81 84 Respiratory Rate 18 16 18 Blood Pressure 176/26 H 185/84 H 182/85 H Pulse Oximetry 96 96 95 Intake & Output 04/06/18 04/07/18 04/07/18 18:59 06:59 18:59 Intake Total 540 / 540 100 / 100 40 / 40 Output Total 200 / 200 Balance 540 / 540 -100 / -100 40 / 40 Weight 63.2 kg Intake: IV 300 / 300 100 / 100 40 / 40 Azactam Inj 1,000 MG In NS Inj 200 / 200 100 / 100 100 ML @ 200 mls/hr IV.SIG Q8H JULIO Rx#:[id number] KCl 20 mEq Premix Inj 20 meq In 100 / 100 20 / 20 100 ml @ 50 mls/hr IV.SIG Q2H JULIO Rx#:[id number] Oral 240 / 240 Output: Urine 200 / 200 Other: # Voids 1 2 # Incontinent Voids 1 # Urine Diapers 3 Date of Last Bowel Movement 04/06/18 04/07/18 # Bowel Movements 1 2 Narrative: awake alert oriented x 3anicteric neck supple, no bruit lungs- no rales irregularly irregular rhythm abdomen soft, nntender extrmeiteis no edema - Urinary Catheter Management Straight Cath placed during this visit: yes Reason for continuing: Not indwelling catheter Insertion time: 15:40 Results - Labs CBC & Chem 7: 04/07/18 06:43 04/08/18 03:55 Laboratory Results - last 24 hr 04/06/18 04/06/18 04/06/18 06:35 11:39 22:40 WBC RBC Hgb Hct MCV MCH MCHC RDW Plt Count MPV Sodium Potassium Chloride Carbon Dioxide Anion Gap BUN Creatinine Estimated GFR POC Glucose 114 H 111 H Random Glucose Calcium Magnesium 1.8 04/07/18 04/07/18 04/07/18 06:43 06:43 07:16 WBC 9.4 RBC 3.68 L Hgb 11.5 L Hct 33.7 L MCV 91.7 MCH 31.2 MCHC 34.0 RDW 20.6 H Plt Count 138 L MPV 8.4 Sodium 145 Potassium 2.8 L* Chloride 106 Carbon Dioxide 30.4 Anion Gap 9 BUN 12 Creatinine 0.59 Estimated GFR Greater than 89 POC Glucose 88 Random Glucose 92 Calcium 8.0 L Magnesium Microbiology 04/05/18 19:20 Blood - Peripheral Aerobic Blood Culture - Preliminary No growth in 1 day 04/05/18 19:20 Blood - Peripheral Anaerobic Blood Culture - Preliminary No growth in 1 day 04/02/18 16:05 Blood - Line Aerobic Blood Culture - Final Escherichia coli 04/02/18 16:05 Blood - Line Anaerobic Blood Culture - Preliminary No growth in 4 days 04/02/18 16:00 Blood - Line Aerobic Blood Culture - Final Escherichia coli 04/02/18 16:00 Blood - Line Anaerobic Blood Culture - Preliminary No growth in 4 days Assessment and Plan - Plan 87-year-old female with a history of hypertension, dementia and anemia was brought to the ED for evaluation of altered mental status. Patient found to have an acute CVA and severe sepsis secondary to UTI. Acute encephalopathy - Multifactorial- MS improved CVA, acute left sided weakness Head MRI shows a small acute to subacute lacunar type infarct involving the left basal ganglia with restricted diffusion -Appreciate neurology input. Patient started on aspirin. -2D echo showed mildly reduced LVEF of 45-50%. -Monitor telemetry, sinus arrhythmia versus A. fib. Cardiology consulted to assist with rhythm -A1C and lipids okay. -Carotid US with less than 50% stenosis Atrial fibrillation- rate controlled Cardiomyopathy EF 45-50%- not in clnical failure - cardiology ff-- ASA Severe Sepsis secondary to UTI/gram-negative leandro bacteremia -2 L bolus given in ED, lactic resolved to 0.9 -Blood cultures grew E. coli -Continue IV antibiotics with aztreonam -Appreciate infectious disease following. FF Repeat blood cultures Acute kidney injury, creatine 1.7, baseline .7, likely due to infection and dehydration -Renal functions normalized with IV fluid. IV fluid discontinued. Avoid nephrotoxins. HYpokalemia- - per family chronic, no diarrhea, not on any diuretics - Mg normal - unable to tolerate IV KCL - given main IVF with KCL - start bid po 20 meq HTN, chronic -Continue amlodipine. Clonidine as needed. -Monitor vitals Dementia, chronic -Resume home dose Aricept History of gastric ulcers: - Continue PPI twice a day. Previously discussed risk and benefit with the patient's daughter. She understands the benefit of aspirin outweigh the risk at this time. Patient will be closely monitored. DVT prophylaxis: Heparin sq
[2018-04-07] MEDS ORDERED: amLODIPine 5 MG Tablet PO ONE (09:46)
[2018-04-07] MEDS ORDERED: Potassium Chlor 10 mEq Premix 10 MEQ/100 ML PIGGYBACK IV.SIG ONE (10:30)
[2018-04-07] MEDS: levETIRAcetam 500 MG Tablet PO SCH ×2 (12:09→22:53)
[2018-04-07] MEDS: KCL 40 mEq/D5W/NaCl 0.9% Inj 1,000 ML IV.CONT SCH (12:13)
--- NOTE | 2018-04-07 15:58 | P.PNID ---
Subjective Remarks: Patient has no complaints. Denies chills. Afebrile. Blood culture has E. coli. Urine culture has E. coli. This is an 87-year-old white female who was admitted to the hospital after presenting to the emergency department with altered mental status. The patient has history of dementia. Past Medical History: PAST MEDICAL HISTORY: Dementia, hypertension, hypothyroidism, anemia, history of cholecystectomy, history of hip replacement. Allergies/Adverse Reactions: Allergies penicillin G Allergy (Severe, Verified 04/02/18 13:55) TONGUE/ FACIAL SWELLING etodolac Adverse Reaction (Severe, Verified 04/02/18 13:55) ANXIETY, AGITATION zolpidem Adverse Reaction (Severe, Verified 04/02/18 13:55) HALLUCINATIONS Objective Vital Signs 04/06/18 16:00 04/06/18 20:00 04/07/18 00:00 Temperature 98.5 F 98.7 F 97.8 F Pulse Rate 78 94 H 75 Respiratory Rate 18 21 18 Blood Pressure 195/88 H 186/84 H 176/26 H Pulse Oximetry 97 97 96 04/07/18 04:00 04/07/18 08:00 04/07/18 09:00 Temperature 97.7 F 99.3 F Pulse Rate 81 84 63 Respiratory Rate 16 18 Blood Pressure 185/84 H 182/85 H Pulse Oximetry 96 95 04/07/18 12:00 04/07/18 12:16 Temperature 98.3 F Pulse Rate 71 78 Respiratory Rate 18 Blood Pressure 183/88 H Pulse Oximetry 96 Intake & Output 04/06/18 04/07/18 04/07/18 18:59 06:59 18:59 Intake Total 540 / 540 100 / 100 150 / 150 Output Total 200 / 200 Balance 540 / 540 -100 / -100 150 / 150 Weight 63.2 kg Intake: IV 300 / 300 100 / 100 150 / 150 Azactam Inj 1,000 MG In NS Inj 200 / 200 100 / 100 100 / 100 100 ML @ 200 mls/hr IV.SIG Q8H JULIO Rx#:[id number] KCl 10 mEq Premix Inj 10 meq In 10 / 10 100 ml @ 100 mls/hr IV.SIG ONCE ONE Rx#:[id number] KCl 20 mEq Premix Inj 20 meq In 100 / 100 20 / 20 100 ml @ 50 mls/hr IV.SIG Q2H JULIO Rx#:[id number] Oral 240 / 240 Output: Urine 200 / 200 Other: # Voids 1 2 # Incontinent Voids 1 # Urine Diapers 3 Date of Last Bowel Movement 04/06/18 04/07/18 04/06/18 # Bowel Movements 1 2 04/05/18 19:20 Blood - Peripheral Aerobic Blood Culture - Preliminary No growth in 2 days 04/05/18 19:20 Blood - Peripheral Anaerobic Blood Culture - Preliminary No growth in 2 days 04/02/18 16:05 Blood - Line Aerobic Blood Culture - Final Escherichia coli 04/02/18 16:05 Blood - Line Anaerobic Blood Culture - Final No growth in 5 days 04/02/18 16:00 Blood - Line Aerobic Blood Culture - Final Escherichia coli 04/02/18 16:00 Blood - Line Anaerobic Blood Culture - Final No growth in 5 days Lab - Hematology Results 04/06/18 04/07/18 06:35 06:43 WBC 10.4 9.4 RBC 4.24 3.68 L Hgb 13.2 D 11.5 L Hct 39.4 33.7 L MCV 92.8 91.7 MCH 31.2 31.2 MCHC 33.6 34.0 RDW 20.8 H 20.6 H Plt Count 120 L 138 L MPV 9.3 8.4 Lab - Chemistry Results 04/04/18 04/05/18 04/05/18 06:58 17:04 23:08 Sodium Potassium Chloride Carbon Dioxide Anion Gap BUN Creatinine Estimated GFR POC Glucose 95 73 Random Glucose Calcium Magnesium Methylmalonic Acid 0.14 04/06/18 04/06/18 04/06/18 06:35 06:35 07:24 Sodium 144 Potassium 2.8 L* Chloride 108 H Carbon Dioxide 26.9 Anion Gap 9 BUN 13 Creatinine 0.67 Estimated GFR 83 L POC Glucose 92 Random Glucose 83 Calcium 8.3 L D Magnesium 1.8 Methylmalonic Acid 04/06/18 04/06/18 04/07/18 11:39 22:40 06:43 Sodium 145 Potassium 2.8 L* Chloride 106 Carbon Dioxide 30.4 Anion Gap 9 BUN 12 Creatinine 0.59 Estimated GFR Greater than 89 POC Glucose 114 H 111 H Random Glucose 92 Calcium 8.0 L Magnesium Methylmalonic Acid 04/07/18 04/07/18 04/07/18 06:43 07:16 11:21 Sodium Potassium Chloride Carbon Dioxide Anion Gap BUN Creatinine Estimated GFR POC Glucose 88 85 Random Glucose Calcium Magnesium 1.7 Methylmalonic Acid Imaging: ITS Impressions Chest X-Ray 04/02/18 14:03 CONCLUSION: Negative examination. Head CT 04/02/18 14:03 CONCLUSION: 1. Atrophy and white matter disease. 2. Age indeterminate small focus of low density in the left basal ganglia measuring 1.1 cm. MRI may be helpful for further evaluation. . Head MRI 04/02/18 15:09 CONCLUSION: 1. Small acute to subacute lacunar type infarct involving the left basal ganglia with restricted diffusion. 2. No evidence of hemorrhage or mass effect. 3. Atrophy and chronic small vessel ischemic changes. Carotid Doppler Study 04/03/18 00:00 CONCLUSION: 1. Right Internal Carotid Artery: Findings indicate <50% stenosis. 2. Left Internal Carotid Artery: Findings indicate <50% stenosis. Neck MRA 04/03/18 00:00 CONCLUSION: 1. Focal narrowing in the left carotid bulb with approximately 60% stenosis. 2. No significant stenosis is identified within the right internal carotid artery. 3. Left vertebral artery is dominant. Percent stenosis is calculated using the diameter of the stenotic region over the diameter of the normal distal internal carotid artery Head MRA 04/03/18 11:01 CONCLUSION: 1. There is asymmetric decreased flow related enhancement within the right M1 segment. 2. 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 3. Diminutive right distal vertebral artery. Physical Exam: PHYSICAL EXAMINATION: GENERAL: No acute distress. HEENT: Extraocular movements are grossly intact. Pupils reactive to light. No icterus. Oropharynx slightly dry mucosa. No visible lesions. NECK: Supple without adenopathy. LUNGS: Clear breath sounds. HEART: Regular S1 and S2, without murmurs. ABDOMEN: Bowel sounds present. Soft, nontender. EXTREMITIES: No clubbing, cyanosis or edema. SKIN: No rash. NEUROLOGIC: Nonfocal. PSYCHIATRIC: Calm and cooperative. Assessment and Plan - Plan ASSESSMENT: 1. Sepsis/bacteremia due to Escherichia coli. The patient presented with fever and altered mental status (sepsis). 2. Urinary tract infection due to E. coli. 3. Altered mental status appears slightly improved. 4. ALLERGY TO PENICILLIN. RECOMMENDATIONS: 1. Continue aztreonam until 04/12/18. 2. Repeat blood culture. 3. Monitor clinical status.
[2018-04-07] MEDS: Montelukast 10 MG Tablet PO SCH (17:17)
--- NOTE | 2018-04-07 22:15 | P.PNCA ---
Subjective Interval history: No events Feels well Telemetry with AFib with controlled rate Medications and Allergies Active Medications: Active Medications Acetaminophen (Tylenol) 650 mg PO Q4H PRN PRN Reason: fever or bowman Last Admin: 04/04/18 12:22 Dose: 650 mg Amlodipine Besylate (Norvasc) 10 mg PO DAILY [facility] Aspirin (Ecotrin) 81 mg PO DAILY [facility] Last Admin: 04/07/18 08:38 Dose: 81 mg Atorvastatin Calcium (Lipitor) 10 mg PO DAILY [facility] Last Admin: 04/07/18 08:38 Dose: 10 mg Calcium/Vitamin D (Oscal With D 250/125 Mg) 2 tab PO DAILY [facility] Last Admin: 04/07/18 08:38 Dose: 2 tab Clonidine HCl (Catapres) 0.1 mg PO Q6H PRN PRN Reason: SYS BP GREATER THAN 180 MMHG Last Admin: 04/06/18 18:15 Dose: 0.1 mg Dextrose (D50w Vial) 50 ml IV.PUSH UNSCH PRN PRN Reason: PER HYPOGLYCEMIA PROTOCOL Donepezil HCl (Aricept) 23 mg PO DAILY [facility] Last Admin: 04/07/18 08:38 Dose: 23 mg Ferrous Sulfate (Ferosul) 325 mg PO DAILY [facility] Last Admin: 04/07/18 08:38 Dose: 325 mg Glucagon (Glucagon Inj) 1 mg OTHER UNSCH PRN PRN Reason: for Hypoglycemia Protocol Heparin Sodium (Porcine) (Heparin Inj) 5,000 units SQ Q12H [facility] Last Admin: 04/07/18 08:39 Dose: 5,000 units Aztreonam 1,000 mg/ Sodium (Chloride) 100 mls @ 200 mls/hr IV.SIG Q8H [facility] Last Infusion: 04/07/18 17:47 Dose: Infused Potassium Chloride/Dextrose/Sod Cl (D5w/Ns + Kcl 40 Meq Inj) 1,000 mls @ 50 mls /hr IV.CONT .Q20H [facility] Last Admin: 04/07/18 12:13 Dose: 50 mls/hr Insulin Aspart (Novolog Insulin Correctional Sugar Inj) 0 unit SQ ACHS [facility]; Protocol Last Admin: 04/07/18 16:19 Dose: Not Given Levetiracetam (Keppra) 500 mg PO BID [facility] Last Admin: 04/07/18 12:09 Dose: 500 mg Levothyroxine Sodium (Synthroid) 50 mcg PO DAILY@0600 [facility] Last Admin: 04/07/18 07:25 Dose: 50 mcg Montelukast Sodium (Singulair) 10 mg PO DAILY@1800 [facility] Last Admin: 04/07/18 17:17 Dose: 10 mg Pantoprazole Sodium (Protonix) 40 mg PO BID [facility] Last Admin: 04/07/18 08:38 Dose: 40 mg Potassium Chloride (K-Dur) 20 meq PO BID [facility] Last Admin: 04/07/18 10:25 Dose: 20 meq Pravastatin Sodium (Pravachol) 40 mg PO HS [facility] Last Admin: 04/06/18 22:38 Dose: 40 mg Pregabalin (Lyrica) 150 mg PO BID [facility] Last Admin: 04/07/18 08:38 Dose: 150 mg Sodium Chloride (Ns Flush) 2 ml IV.FLUSH BID [facility] Last Admin: 04/07/18 08:50 Dose: 2 ml Sodium Chloride (Ns Flush) 2 ml IV.FLUSH PRN PRN PRN Reason: FLUSH AFTER USING IV ACCESS Venlafaxine HCl (Effexor Xr) 150 mg PO DAILY [facility] Last Admin: 04/07/18 08:41 Dose: 150 mg Allergies Allergy/AdvReac Type Severity Reaction Status Date / Time penicillin G Allergy Severe TONGUE/ Verified 04/02/18 13:55 FACIAL SWELLING etodolac AdvReac Severe ANXIETY, Verified 04/02/18 13:55 AGITATION zolpidem AdvReac Severe HALLUCINATI Verified 04/02/18 13:55 ONS Home Medications Medication Instructions Recorded Confirmed Type atorvastatin [Lipitor] 10 mg PO DAILY 04/02/18 04/02/18 History calcium carbonate-vitamin D3 1 tab PO DAILY 04/02/18 04/02/18 History [Calcium with Vitamin D] donepezil [Aricept] 23 mg PO DAILY 04/02/18 04/02/18 History ferrous sulfate 325 mg PO DAILY 04/02/18 04/02/18 History hydrochlorothiazide 25 mg PO DAILY 04/02/18 04/02/18 History hydrocodone-acetaminophen 1 tab PO QID PRN 04/02/18 04/02/18 History levothyroxine 50 mcg PO DAILY 04/02/18 04/02/18 History montelukast 10 mg PO QPM 04/02/18 04/02/18 History pantoprazole 40 mg PO BID 04/02/18 04/02/18 History pregabalin [Lyrica] 150 mg PO BID 04/02/18 04/02/18 History venlafaxine [Effexor XR] 150 mg PO DAILY 04/02/18 04/02/18 History Physical Exam Vital signs: Vital Signs 04/07/18 00:00 04/07/18 04:00 04/07/18 08:00 Temperature 97.8 F 97.7 F 99.3 F Pulse Rate 75 81 84 Respiratory Rate 18 16 18 Blood Pressure 176/26 H 185/84 H 182/85 H Pulse Oximetry 96 96 95 04/07/18 09:00 04/07/18 12:00 04/07/18 12:16 Temperature 98.3 F Pulse Rate 63 71 78 Respiratory Rate 18 Blood Pressure 183/88 H Pulse Oximetry 96 04/07/18 16:00 04/07/18 20:00 Temperature 97.3 F L 97.9 F Pulse Rate 71 88 Respiratory Rate 18 18 Blood Pressure 141/67 H 161/73 H Pulse Oximetry 96 98 Intake & Output 04/07/18 04/07/18 04/08/18 06:59 18:59 06:59 Intake Total 100 / 100 1050 / 1050 Output Total 200 / 200 Balance -100 / -100 1050 / 1050 Weight 63.2 kg Intake: IV 100 / 100 250 / 250 Azactam Inj 1,000 MG In NS Inj 100 / 100 200 / 200 100 ML @ 200 mls/hr IV.SIG Q8H JULIO Rx#:[id number] KCl 10 mEq Premix Inj 10 meq In 10 / 10 100 ml @ 100 mls/hr IV.SIG ONCE ONE Rx#:[id number] KCl 20 mEq Premix Inj 20 meq In 20 / 20 100 ml @ 50 mls/hr IV.SIG Q2H JULIO Rx#:[id number] Oral 800 / 800 Output: Urine 200 / 200 Other: # Voids 2 5 # Urine Diapers 3 Date of Last Bowel Movement 04/07/18 04/06/18 # Bowel Movements 2 1 Narrative: awake alert oriented x 3anicteric neck supple, no bruit lungs- no rales irregularly irregular rhythm abdomen soft, nntender extrmeiteis no edema - Urinary Catheter Management Straight Cath placed during this visit: yes Reason for continuing: Not indwelling catheter Insertion time: 15:40 Results 04/07/18 06:43 04/07/18 06:43 CBC 04/06/18 04/07/18 Range/Units 06:35 06:43 WBC 10.4 9.4 (4.0-11.0) th/mm3 RBC 4.24 3.68 L (4.00-5.30) mil/mm3 Hgb 13.2 D 11.5 L (11.6-15.3) gm/dL Hct 39.4 33.7 L (35.0-46.0) % Plt Count 120 L 138 L (150-450) th/mm3 Comprehensive Metabolic Panel 04/06/18 04/07/18 Range/Units 06:35 06:43 Sodium 144 145 (136-145) meq/L Potassium 2.8 L* 2.8 L* (3.5-5.1) meq/L Chloride 108 H 106 (98-107) meq/L Carbon Dioxide 26.9 30.4 (21.0-32.0) meq/L BUN 13 12 (7-18) mg/dL Creatinine 0.67 0.59 (0.50-1.00) mg/dL Calcium 8.3 L D 8.0 L (8.5-10.1) mg/dL Intake and Output 04/07/18 04/07/18 04/07/18 06:59 14:59 22:59 Intake Total 100 / 100 150 / 150 900 / 900 Output Total 200 / 200 Balance -100 / -100 150 / 150 900 / 900 Intake: IV 100 / 100 150 / 150 100 / 100 Azactam Inj 1,000 MG In NS Inj 100 / 100 100 / 100 100 / 100 100 ML @ 200 mls/hr IV.SIG Q8H JULIO Rx#:[id number] KCl 10 mEq Premix Inj 10 meq In 10 / 10 100 ml @ 100 mls/hr IV.SIG ONCE ONE Rx#:[id number] KCl 20 mEq Premix Inj 20 meq In 20 / 20 100 ml @ 50 mls/hr IV.SIG Q2H JULIO Rx#:[id number] Oral 800 / 800 Output: Urine 200 / 200 Other: # Voids 2 5 # Urine Diapers 3 Date of Last Bowel Movement 04/07/18 04/06/18 # Bowel Movements 2 1 Weight 63.2 kg Assessment and Plan - Assessment (1) CVA (cerebral vascular accident) Code(s): I63.9 - Cerebral infarction, unspecified Status: Acute (2) Afib Code(s): I48.91 - Unspecified atrial fibrillation Status: Acute (3) Stomach ulcer Code(s): K25.9 - Gastric ulcer, unspecified as acute or chronic, without hemorrhage or perforation Status: Acute - Plan 1) CVA Per neurology 2) Afib Appears to have Afib on telemetry Rates controlled Discussed with daughter, she does not believe her mother should be placed on anticoagulation due to problems with a stomach ulcer with significant bleeding in the past Overall agree with decision ASA 81mg daily 3) History of stomach ulcer with significant bleed
[2018-04-08] MEDS: Insulin NovoLOG Aspart Correctional Sugar Inj SQ SCH ×5 (00:45→21:37)
[2018-04-08] MEDS: Levothyroxine 50 MCG Tablet PO SCH (06:46)
[2018-04-08 07:23] LABS: Anion Gap 9 meq/L (5-15); Blood Urea Nitrogen 10 mg/dL (7-18); Calcium 7.9 mg/dL (8.5-10.1); Carbon Dioxide 30.7 meq/L (21.0-32.0); Chloride 106 meq/L (98-107); Glomerular Filtration Rate Greater Than 89 mL/min (>89); Glucose,Random 89 mg/dL (74-106); Potassium 3.1 meq/L (3.5-5.1); Sodium 146 meq/L (136-145)
[2018-04-08] MEDS: KCL 40 mEq/D5W/NaCl 0.9% Inj 1,000 ML IV.CONT SCH (07:42)
[2018-04-08] MEDS: Calcium/Vitamin D 250/125 MG Tablet PO SCH (08:24)
[2018-04-08] MEDS: Venlafaxine XR 75 MG Capsule PO SCH (08:24)
[2018-04-08] MEDS: amLODIPine 5 MG Tablet PO SCH (08:25)
[2018-04-08] MEDS: Heparin - SQ 10,000 UNITS/ML Vial SQ SCH (08:25)
[2018-04-08] MEDS: Pregabalin 75 MG Capsule PO SCH ×2 (08:25→21:28)
[2018-04-08] MEDS: levETIRAcetam 500 MG Tablet PO SCH ×2 (08:25→21:28)
[2018-04-08] MEDS: Ferrous Sulfate 325 MG Tablet PO SCH (08:25)
--- NOTE | 2018-04-08 10:13 | P.PNNEU ---
Subjective Active Medications: Active Medications Acetaminophen (Tylenol) 650 mg PO Q4H PRN PRN Reason: fever or bowman Last Admin: 04/04/18 12:22 Dose: 650 mg Amlodipine Besylate (Norvasc) 10 mg PO DAILY [facility] Last Admin: 04/08/18 08:25 Dose: 10 mg Aspirin (Ecotrin) 81 mg PO DAILY [facility] Last Admin: 04/08/18 09:04 Dose: 81 mg Atorvastatin Calcium (Lipitor) 10 mg PO DAILY [facility] Last Admin: 04/08/18 08:25 Dose: 10 mg Calcium/Vitamin D (Oscal With D 250/125 Mg) 2 tab PO DAILY [facility] Last Admin: 04/08/18 08:24 Dose: 2 tab Clonidine HCl (Catapres) 0.1 mg PO Q6H PRN PRN Reason: SYS BP GREATER THAN 180 [facility] Last Admin: 04/06/18 18:15 Dose: 0.1 mg Dextrose (D50w Vial) 50 ml IV.PUSH UNSCH PRN PRN Reason: PER HYPOGLYCEMIA PROTOCOL Donepezil HCl (Aricept) 23 mg PO DAILY [facility] Last Admin: 04/08/18 08:25 Dose: 23 mg Ferrous Sulfate (Ferosul) 325 mg PO DAILY [facility] Last Admin: 04/08/18 08:25 Dose: 325 mg Glucagon (Glucagon Inj) 1 mg OTHER UNSCH PRN PRN Reason: for Hypoglycemia Protocol Heparin Sodium (Porcine) (Heparin Inj) 5,000 units SQ Q12H [facility] Last Admin: 04/08/18 08:25 Dose: 5,000 units Aztreonam 1,000 mg/ Sodium (Chloride) 100 mls @ 200 mls/hr IV.SIG Q8H [facility] Last Infusion: 04/08/18 09:03 Dose: Infused Potassium Chloride/Dextrose/Sod Cl (D5w/Ns + Kcl 40 Meq Inj) 1,000 mls @ 50 mls /hr IV.CONT .Q20H [facility] Last Admin: 04/08/18 07:42 Dose: 50 mls/hr Insulin Aspart (Novolog Insulin Correctional Sugar Inj) 0 unit SQ ACHS [facility]; Protocol Last Admin: 04/08/18 08:26 Dose: Not Given Levetiracetam (Keppra) 500 mg PO BID [facility] Last Admin: 04/08/18 08:25 Dose: 500 mg Levothyroxine Sodium (Synthroid) 50 mcg PO DAILY@0600 [facility] Last Admin: 04/08/18 06:46 Dose: 50 mcg Montelukast Sodium (Singulair) 10 mg PO DAILY@1800 [facility] Last Admin: 04/07/18 17:17 Dose: 10 mg Pantoprazole Sodium (Protonix) 40 mg PO BID [facility] Last Admin: 04/08/18 08:25 Dose: 40 mg Potassium Chloride (K-Dur) 20 meq PO BID [facility] Last Admin: 04/08/18 08:25 Dose: 20 meq Pravastatin Sodium (Pravachol) 40 mg PO HS [facility] Last Admin: 04/07/18 22:53 Dose: 40 mg Pregabalin (Lyrica) 150 mg PO BID [facility] Last Admin: 04/08/18 08:25 Dose: 150 mg Sodium Chloride (Ns Flush) 2 ml IV.FLUSH BID [facility] Last Admin: 04/08/18 08:26 Dose: 2 ml Sodium Chloride (Ns Flush) 2 ml IV.FLUSH PRN PRN PRN Reason: FLUSH AFTER USING IV ACCESS Venlafaxine HCl (Effexor Xr) 150 mg PO DAILY [facility] Last Admin: 04/08/18 08:24 Dose: 150 mg Allergies/Adverse Reactions: Allergies Allergy/AdvReac Type Severity Reaction Status Date / Time penicillin G Allergy Severe TONGUE/ Verified 04/02/18 13:55 FACIAL SWELLING etodolac AdvReac Severe ANXIETY, Verified 04/02/18 13:55 AGITATION zolpidem AdvReac Severe HALLUCINATI Verified 04/02/18 13:55 ONS Physical Exam Vital signs: Vital Signs 04/07/18 12:00 04/07/18 12:16 04/07/18 16:00 Temperature 98.3 F 97.3 F L Pulse Rate 71 78 71 Respiratory Rate 18 18 Blood Pressure 183/88 H 141/67 H Pulse Oximetry 96 96 04/07/18 20:00 04/08/18 00:00 04/08/18 04:00 Temperature 97.9 F 98.4 F 98.2 F Pulse Rate 88 75 74 Respiratory Rate 18 20 20 Blood Pressure 161/73 H 168/82 H 164/83 H Pulse Oximetry 98 98 96 04/08/18 08:00 Temperature 97.8 F Pulse Rate 76 Respiratory Rate 18 Blood Pressure 168/74 H Pulse Oximetry 95 Intake & Output 1004/08/18 04/08/18 18:59 06:59 18:59 Intake Total 1050 / 1050 100 / 100 1100 / 1100 Balance 1050 / 1050 100 / 100 1100 / 1100 Weight 63.2 kg Intake: IV 250 / 250 100 / 100 1100 / 1100 D5W/NS + KCL 40 mEq Inj 1,000 1000 / 1000 ML @ 50 mls/hr IV.CONT .Q20H [facility] Rx#:[id number] Azactam Inj 1,000 MG In NS Inj 200 / 200 100 / 100 100 / 100 100 ML @ 200 mls/hr IV.SIG Q8H [facility] Rx#:[id number] KCl 10 mEq Premix Inj 10 meq In 10 / 10 100 ml @ 100 mls/hr IV.SIG ONCE ONE Rx#:[id number] KCl 20 mEq Premix Inj 20 meq In 20 / 20 100 ml @ 50 mls/hr IV.SIG Q2H [facility] Rx#:[id number] Oral 800 / 800 Other: # Voids 5 3 Date of Last Bowel Movement 04/06/18 04/07/18 04/07/18 # Bowel Movements 1 2 Narrative: more alert cheerful vff moves all well speech clear - Urinary Catheter Management Straight Cath placed during this visit: yes Reason for continuing: Not indwelling catheter Insertion time: 15:40 Objective Laboratory Results - last 24 hr 04/07/18 04/07/18 04/07/18 06:43 11:21 16:07 Sodium Potassium Chloride Carbon Dioxide Anion Gap BUN Creatinine Estimated GFR POC Glucose 85 128 H Random Glucose Calcium Magnesium 1.7 04/07/18 04/08/18 04/08/18 23:18 03:55 07:39 Sodium 146 H Potassium 3.1 L Chloride 106 Carbon Dioxide 30.7 Anion Gap 9 BUN 10 Creatinine 0.60 Estimated GFR Greater than 89 POC Glucose 107 117 H Random Glucose 89 Calcium 7.9 L Magnesium Microbiology 04/05/18 19:20 Aerobic Blood Culture - Preliminary Blood - Peripheral No growth in 2 days Anaerobic Blood Culture - Preliminary No growth in 2 days 04/02/18 16:05 Aerobic Blood Culture - Final Blood - Line Escherichia coli Anaerobic Blood Culture - Final No growth in 5 days 04/02/18 16:00 Aerobic Blood Culture - Final Blood - Line Escherichia coli Anaerobic Blood Culture - Final No growth in 5 days Review/Management - Review/Management Plan: imp left deep cva 60% or less left ica cow some dz not severe ldl nl on 81 asa labs pend bld cx pos echo and holter pend eeg shows sharps will start low dose keppra nd push up in few days oob ok some of the tele strips hard to tell if sr or not MED TEAM PLZ REVIEW ALL THE TELE STRIPS AND IF THINK ANY AFIB CALL CARDS 04/05/18 i am still unclear as to rhythm as noted above med team plz clarify on asa if not afib and echo nl and holter done could dc on keppra and asa 81mg with hx gi bleed and fu office 04/06/18 cards to see about rhythm stable neuro echo neg holter pend 04/07/18 cards unsure if afib or note holter pend on asa 81 keppra for abn eeg stable neuro daughter could call me if she thinks mom more lethargic on keppra seems a little sedate last few mornings ow could dc to ? rehab vs home PT 04/08/18 cards confirms afib today she really needs to stephane on anticoag and we could watch her h/h regularly on it ow she has very high risk 1% per month of another cva and disability from that i will dw daughter when she comes in today ow could dc
--- NOTE | 2018-04-08 15:09 | P.PN ---
Subjective Interval history: awake and alert, speech spontaenous no complains telemetry a fib rviewed last evening- had short runs on non sustaine narrow completx tachy Physical Exam Vital signs: Vital Signs 04/07/18 16:00 04/07/18 20:00 04/08/18 00:00 Temperature 97.3 F L 97.9 F 98.4 F Pulse Rate 71 88 75 Respiratory Rate 18 18 20 Blood Pressure 141/67 H 161/73 H 168/82 H Pulse Oximetry 96 98 98 04/08/18 04:00 04/08/18 08:00 04/08/18 09:00 Temperature 98.2 F 97.8 F Pulse Rate 74 76 71 Respiratory Rate 20 18 Blood Pressure 164/83 H 168/74 H Pulse Oximetry 96 95 04/08/18 12:00 Temperature 97.6 F Pulse Rate 68 Respiratory Rate 16 Blood Pressure 155/68 H Pulse Oximetry 97 Intake & Output 04/07/18 04/08/18 04/08/18 18:59 06:59 18:59 Intake Total 1050 / 1050 100 / 100 1100 / 1100 Balance 1050 / 1050 100 / 100 1100 / 1100 Weight 63.2 kg Intake: IV 250 / 250 100 / 100 1100 / 1100 D5W/NS + KCL 40 mEq Inj 1,000 1000 / 1000 ML @ 50 mls/hr IV.CONT .Q20H [facility] Rx#:[id number] Azactam Inj 1,000 MG In NS Inj 200 / 200 100 / 100 100 / 100 100 ML @ 200 mls/hr IV.SIG Q8H [facility] Rx#:[id number] KCl 10 mEq Premix Inj 10 meq In 10 / 10 100 ml @ 100 mls/hr IV.SIG ONCE ONE Rx#:[id number] KCl 20 mEq Premix Inj 20 meq In 20 / 20 100 ml @ 50 mls/hr IV.SIG Q2H [facility] Rx#:[id number] Oral 800 / 800 Other: # Voids 5 3 Date of Last Bowel Movement 04/06/18 04/07/18 04/07/18 # Bowel Movements 1 2 Narrative: awake alert oriented x 3anicteric neck supple, no bruit lungs- no rales irregularly irregular rhythm abdomen soft, nntender extrmeiteis no edema - Urinary Catheter Management Straight Cath placed during this visit: yes Reason for continuing: Not indwelling catheter Insertion time: 15:40 Results - Labs CBC & Chem 7: 04/10/18 09:50 04/10/18 10:27 Laboratory Results - last 24 hr 04/07/18 04/07/18 04/08/18 16:07 23:18 03:55 Sodium 146 H Potassium 3.1 L Chloride 106 Carbon Dioxide 30.7 Anion Gap 9 BUN 10 Creatinine 0.60 Estimated GFR Greater than 89 POC Glucose 128 H 107 Random Glucose 89 Calcium 7.9 L 04/08/18 04/08/18 07:39 10:49 Sodium Potassium Chloride Carbon Dioxide Anion Gap BUN Creatinine Estimated GFR POC Glucose 117 H 99 Random Glucose Calcium Microbiology 04/05/18 19:20 Blood - Peripheral Aerobic Blood Culture - Preliminary No growth in 3 days 04/05/18 19:20 Blood - Peripheral Anaerobic Blood Culture - Preliminary No growth in 3 days Assessment and Plan - Plan 87-year-old female with a history of hypertension, dementia and anemia was brought to the ED for evaluation of altered mental status. Patient found to have an acute CVA and severe sepsis secondary to UTI. Acute Encephalopathy - multifactorial - MS improved CVA, acute left sided weakness Head MRI shows a small acute to subacute lacunar type infarct involving the left basal ganglia with restricted diffusion -Appreciate neurology input. Patient started on aspirin. -2D echo showed mildly reduced LVEF of 45-50%. -Monitor telemetry, sinus arrhythmia versus A. fib. Cardiology consulted to assist with rhythm -A1C and lipids okay. -Carotid US with less than 50% stenosis Atrial fibrillation- rate controlled Cardiomyopathy EF 45-50%- not in clnical failure - cardiology ff-- - add eliquis 5 mg bid- d/w ptient and family- understands risks E coli Severe Sepsis secondary to UTI -2 L bolus given in ED, lactic resolved to 0.9 -Blood cultures grew E. coli -Continue IV antibiotics with aztreonam till 04/12 -Appreciate infectious disease following. FF Repeat blood cultures - negative last 48 hours Acute kidney injury, creatine 1.7, baseline .7, likely due to infection and dehydration -Renal functions normalized with IV fluid. IV fluid discontinued. Avoid nephrotoxins. HYpokalemia- - per family chronic, no diarrhea, not on any diuretics - Mg normal - unable to tolerate IV KCL - given main IVF with KCL - increase to 40 meq po bid HTN, chronic -Continue amlodipine. Clonidine as needed. -Monitor vitals Dementia, chronic -Resume home dose Aricept History of gastric ulcers: - Continue PPI twice a day. Previously discussed risk and benefit with the patient's daughter. started eliquis- DC ASA ff H and h DVT prophylaxis: Heparin sq- will DC since will be started on Eliquis PCP - Dr. Hobbs in [place] and [place]
[2018-04-08] MEDS: Montelukast 10 MG Tablet PO SCH (17:25)
--- NOTE | 2018-04-08 18:24 | HM ---
Date Performed: 04/04/2018 Time Performed: 14:10:00 HOOKUP DATE: 04/04/18 02:10:00 PM Sun ANALYSIS START TIME: 04/04/2018 2:15:00 PM ANALYSIS END TIME: 04/05/2018 1:55:48 PM PATIENT AGE: 87 PATIENT HEIGHT PATIENT WEIGHT DRUG LIST PATIENT DIAGNOSIS: jesenia TEST NARRATIVE: The patient's average heart rate was 84 BPM. Heart rates greater than 120 B PM were noted < 1% of the time. No episodes of bradycardia were noted. No pauses exceeding 2.0 s econds were noted. 150 ventricular ectopics, which represented < 1% of the total beat count, were noted. The highest ventricular ectopic frequency occurred from 01:00 AM to 02:00 AM Mon. During th is time 94 VE(s) occurred. Ventricular ectopics were observed as 150 isolated beat(s) only. No coup lets or runs were noted. No supraventricular ectopics were noted. No episodes of ST depressio n (defined as -1.0 mm or more) were noted in channel 1. No episodes of ST depression (defined as -1. 0 mm or more) were noted in channel 2. No episodes of ST depression (defined as -1.0 mm or more) wer e noted in channel 3. TEST INTERPRETATION: 24 Hour Holter Monitor-Dr. Clovis Fan Indications: JESENIA CONCLUSSION: Abnormal Holter Monitor with multiple paroxysms of fast atrial fibrillation and dissassociated ST-T wave changes. The underlying quality Holter Monitor make it difficult to ascertain exactly how that a trial fibrillation is present. The P waves are not well appreciated during the course of the study, though there do appear to be significant periods of Sinus rhythm i adition amy atrial fibrillation would recommend repeat potentially longer term monitoring to est ablish age-related atrial fibrillation burden,. This is a new diagnosis, again Clinical correlation is recommended Signed by : Clovis Fan
--- NOTE | 2018-04-08 18:45 | P.PNCA ---
Subjective Interval history: No events overnight No complaints Short run of PAT on telemetry Medications and Allergies Active Medications: Active Medications Acetaminophen (Tylenol) 650 mg PO Q4H PRN PRN Reason: fever or bowman Last Admin: 04/04/18 12:22 Dose: 650 mg Amlodipine Besylate (Norvasc) 10 mg PO DAILY [facility] Last Admin: 04/08/18 08:25 Dose: 10 mg Apixaban (Eliquis) 5 mg PO BID [facility] Atorvastatin Calcium (Lipitor) 10 mg PO DAILY [facility] Last Admin: 04/08/18 08:25 Dose: 10 mg Calcium/Vitamin D (Oscal With D 250/125 Mg) 2 tab PO DAILY [facility] Last Admin: 04/08/18 08:24 Dose: 2 tab Clonidine HCl (Catapres) 0.1 mg PO Q6H PRN PRN Reason: SYS BP GREATER THAN 180 [facility] Last Admin: 04/06/18 18:15 Dose: 0.1 mg Dextrose (D50w Vial) 50 ml IV.PUSH UNSCH PRN PRN Reason: PER HYPOGLYCEMIA PROTOCOL Donepezil HCl (Aricept) 23 mg PO DAILY [facility] Last Admin: 04/08/18 08:25 Dose: 23 mg Ferrous Sulfate (Ferosul) 325 mg PO DAILY [facility] Last Admin: 04/08/18 08:25 Dose: 325 mg Glucagon (Glucagon Inj) 1 mg OTHER UNSCH PRN PRN Reason: for Hypoglycemia Protocol Aztreonam 1,000 mg/ Sodium (Chloride) 100 mls @ 200 mls/hr IV.SIG Q8H [facility] Last Infusion: 04/08/18 17:43 Dose: Infused Potassium Chloride/Dextrose/Sod Cl (D5w/Ns + Kcl 40 Meq Inj) 1,000 mls @ 50 mls /hr IV.CONT .Q20H [facility] Last Admin: 04/08/18 07:42 Dose: 50 mls/hr Insulin Aspart (Novolog Insulin Correctional Sugar Inj) 0 unit SQ [facility]; Protocol Last Admin: 04/08/18 17:25 Dose: Not Given Levetiracetam (Keppra) 500 mg PO BID [facility] Last Admin: 04/08/18 08:25 Dose: 500 mg Levothyroxine Sodium (Synthroid) 50 mcg PO DAILY@0600 [facility] Last Admin: 04/08/18 06:46 Dose: 50 mcg Montelukast Sodium (Singulair) 10 mg PO DAILY@1800 [facility] Last Admin: 04/08/18 17:25 Dose: 10 mg Pantoprazole Sodium (Protonix) 40 mg PO BID [facility] Last Admin: 04/08/18 08:25 Dose: 40 mg Potassium Chloride (K-Dur) 40 meq PO BID [facility] Pravastatin Sodium (Pravachol) 40 mg PO HS [facility] Last Admin: 04/07/18 22:53 Dose: 40 mg Pregabalin (Lyrica) 150 mg PO BID [facility] Last Admin: 04/08/18 08:25 Dose: 150 mg Sodium Chloride (Ns Flush) 2 ml IV.FLUSH BID [facility] Last Admin: 04/08/18 08:26 Dose: 2 ml Sodium Chloride (Ns Flush) 2 ml IV.FLUSH PRN PRN PRN Reason: FLUSH AFTER USING IV ACCESS Venlafaxine HCl (Effexor Xr) 150 mg PO DAILY [facility] Last Admin: 04/08/18 08:24 Dose: 150 mg Allergies Allergy/AdvReac Type Severity Reaction Status Date / Time penicillin G Allergy Severe TONGUE/ Verified 04/02/18 13:55 FACIAL SWELLING etodolac AdvReac Severe ANXIETY, Verified 04/02/18 13:55 AGITATION zolpidem AdvReac Severe HALLUCINATI Verified 04/02/18 13:55 ONS Home Medications Medication Instructions Recorded Confirmed Type atorvastatin [Lipitor] 10 mg PO DAILY 04/02/18 04/02/18 History calcium carbonate-vitamin D3 1 tab PO DAILY 04/02/18 04/02/18 History [Calcium with Vitamin D] donepezil [Aricept] 23 mg PO DAILY 04/02/18 04/02/18 History ferrous sulfate 325 mg PO DAILY 04/02/18 04/02/18 History hydrochlorothiazide 25 mg PO DAILY 04/02/18 04/02/18 History hydrocodone-acetaminophen 1 tab PO QID PRN 04/02/18 04/02/18 History levothyroxine 50 mcg PO DAILY 04/02/18 04/02/18 History montelukast 10 mg PO QPM 04/02/18 04/02/18 History pantoprazole 40 mg PO BID 04/02/18 04/02/18 History pregabalin [Lyrica] 150 mg PO BID 04/02/18 04/02/18 History venlafaxine [Effexor XR] 150 mg PO DAILY 04/02/18 04/02/18 History Physical Exam Vital signs: Vital Signs 04/07/18 20:00 04/08/18 00:00 04/08/18 04:00 Temperature 97.9 F 98.4 F 98.2 F Pulse Rate 88 75 74 Respiratory Rate 18 20 20 Blood Pressure 161/73 H 168/82 H 164/83 H Pulse Oximetry 98 98 96 04/08/18 08:00 04/08/18 09:00 04/08/18 12:00 Temperature 97.8 F 97.6 F Pulse Rate 76 71 68 Respiratory Rate 18 16 Blood Pressure 168/74 H 155/68 H Pulse Oximetry 95 97 04/08/18 16:00 Temperature 97.7 F Pulse Rate 70 Respiratory Rate 18 Blood Pressure 153/66 H Pulse Oximetry 95 Intake & Output 04/07/18 04/08/18 04/08/18 18:59 06:59 18:59 Intake Total 1050 / 1050 100 / 100 1959 Balance 1050 / 1050 100 / 100 1959 Weight 63.2 kg Intake: IV 250 / 250 100 / 100 1200 / 1200 D5W/NS + KCL 40 mEq Inj 1,000 1000 / 1000 ML @ 50 mls/hr IV.CONT .Q20H [facility] Rx#:[id number] Azactam Inj 1,000 MG In NS Inj 200 / 200 100 / 100 200 / 200 100 ML @ 200 mls/hr IV.SIG Q8H [facility] Rx#:[id number] KCl 10 mEq Premix Inj 10 meq In 10 / 10 100 ml @ 100 mls/hr IV.SIG ONCE ONE Rx#:[id number] KCl 20 mEq Premix Inj 20 meq In 20 / 20 100 ml @ 50 mls/hr IV.SIG Q2H [facility] Rx#:[id number] Oral 800 / 800 760 / 760 Other: # Voids 5 3 # Incontinent Voids 1 # Urine Diapers 6 Date of Last Bowel Movement 04/06/18 04/07/18 04/07/18 # Bowel Movements 1 2 1 Narrative: GENERAL: NAD SKIN: Warm and dry. HEAD: Atraumatic. Normocephalic. EYES: Pupils equal and round. No scleral icterus. No injection or drainage. ENT: No nasal bleeding or discharge. Mucous membranes pink and moist. NECK: Trachea midline. No JVD. CARDIOVASCULAR: Irregularly irregular RESPIRATORY: No accessory muscle use. Clear to auscultation. Breath sounds equal bilaterally. GASTROINTESTINAL: Abdomen soft, non-tender, nondistended. Hepatic and splenic margins not palpable. MUSCULOSKELETAL: Extremities without clubbing, cyanosis, or edema. No obvious deformities. NEUROLOGICAL: Awake and alert. No obvious cranial nerve deficits. - Urinary Catheter Management Straight Cath placed during this visit: yes Reason for continuing: Not indwelling catheter Insertion time: 15:40 Results 04/07/18 06:43 04/08/18 03:55 CBC 04/07/18 Range/Units 06:43 WBC 9.4 (4.0-11.0) th/mm3 RBC 3.68 L (4.00-5.30) mil/mm3 Hgb 11.5 L (11.6-15.3) gm/dL Hct 33.7 L (35.0-46.0) % Plt Count 138 L (150-450) th/mm3 Comprehensive Metabolic Panel 04/07/18 04/08/18 Range/Units 06:43 03:55 Sodium 145 146 H (136-145) meq/L Potassium 2.8 L* 3.1 L (3.5-5.1) meq/L Chloride 106 106 (98-107) meq/L Carbon Dioxide 30.4 30.7 (21.0-32.0) meq/L BUN 12 10 (7-18) mg/dL Creatinine 0.59 0.60 (0.50-1.00) mg/dL Calcium 8.0 L 7.9 L (8.5-10.1) mg/dL Intake and Output 04/08/18 04/08/18 04/08/18 06:59 14:59 22:59 Intake Total 100 / 100 1100 / 1100 860 / 860 Balance 100 / 100 1100 / 1100 860 / 860 Intake: IV 100 / 100 1100 / 1100 100 / 100 D5W/NS + KCL 40 mEq Inj 1,000 1000 / 1000 ML @ 50 mls/hr IV.CONT .Q20H [facility] Rx#:[id number] Azactam Inj 1,000 MG In NS Inj 100 / 100 100 / 100 100 / 100 100 ML @ 200 mls/hr IV.SIG Q8H [facility] Rx#:[id number] Oral 760 / 760 Other: # Voids 3 # Incontinent Voids 1 # Urine Diapers 6 Date of Last Bowel Movement 04/07/18 # Bowel Movements 2 1 Weight 63.2 kg Assessment and Plan - Assessment (1) CVA (cerebral vascular accident) Code(s): I63.9 - Cerebral infarction, unspecified Status: Acute (2) Afib Code(s): I48.91 - Unspecified atrial fibrillation Status: Acute (3) Stomach ulcer Code(s): K25.9 - Gastric ulcer, unspecified as acute or chronic, without hemorrhage or perforation Status: Acute - Plan 1) CVA Per neurology 2) Afib Appears to have Afib on telemetry Rates controlled Neuro/Primary team discussed with daughter about risks/benefits and they decided to place her on Eliquis 5mg BID 3) History of stomach ulcer with significant bleed 4) No further cardiovascular work up
[2018-04-09] MEDS: Levothyroxine 50 MCG Tablet PO SCH (06:04)
--- NOTE | 2018-04-09 07:46 | P.PNNEU ---
Subjective Active Medications: Active Medications Acetaminophen (Tylenol) 650 mg PO Q4H PRN PRN Reason: fever or bowman Last Admin: 04/04/18 12:22 Dose: 650 mg Amlodipine Besylate (Norvasc) 10 mg PO DAILY [facility] Last Admin: 04/08/18 08:25 Dose: 10 mg Apixaban (Eliquis) 5 mg PO BID [facility] Last Admin: 04/08/18 21:28 Dose: 5 mg Atorvastatin Calcium (Lipitor) 10 mg PO DAILY [facility] Last Admin: 04/08/18 08:25 Dose: 10 mg Calcium/Vitamin D (Oscal With D 250/125 Mg) 2 tab PO DAILY [facility] Last Admin: 04/08/18 08:24 Dose: 2 tab Clonidine HCl (Catapres) 0.1 mg PO Q6H PRN PRN Reason: SYS BP GREATER THAN 180 [facility] Last Admin: 04/06/18 18:15 Dose: 0.1 mg Dextrose (D50w Vial) 50 ml IV.PUSH UNSCH PRN PRN Reason: PER HYPOGLYCEMIA PROTOCOL Donepezil HCl (Aricept) 23 mg PO DAILY [facility] Last Admin: 04/08/18 08:25 Dose: 23 mg Ferrous Sulfate (Ferosul) 325 mg PO DAILY [facility] Last Admin: 04/08/18 08:25 Dose: 325 mg Glucagon (Glucagon Inj) 1 mg OTHER UNSCH PRN PRN Reason: for Hypoglycemia Protocol Aztreonam 1,000 mg/ Sodium (Chloride) 100 mls @ 200 mls/hr IV.SIG Q8H [facility] Last Infusion: 04/09/18 02:58 Dose: Infused Potassium Chloride/Dextrose/Sod Cl (D5w/Ns + Kcl 40 Meq Inj) 1,000 mls @ 50 mls /hr IV.CONT .Q20H [facility] Last Admin: 04/08/18 07:42 Dose: 50 mls/hr Insulin Aspart (Novolog Insulin Correctional Sugar Inj) 0 unit SQ ACHS [facility]; Protocol Last Admin: 04/08/18 21:37 Dose: Not Given Levetiracetam (Keppra) 500 mg PO BID [facility] Last Admin: 04/08/18 21:28 Dose: 500 mg Levothyroxine Sodium (Synthroid) 50 mcg PO DAILY@0600 [facility] Last Admin: 04/09/18 06:04 Dose: 50 mcg Montelukast Sodium (Singulair) 10 mg PO DAILY@1800 [facility] Last Admin: 04/08/18 17:25 Dose: 10 mg Pantoprazole Sodium (Protonix) 40 mg PO BID [facility] Last Admin: 04/08/18 21:28 Dose: 40 mg Potassium Chloride (K-Dur) 40 meq PO BID [facility] Last Admin: 04/08/18 21:28 Dose: 40 meq Pravastatin Sodium (Pravachol) 40 mg PO HS [facility] Last Admin: 04/08/18 21:28 Dose: 40 mg Pregabalin (Lyrica) 150 mg PO BID [facility] Last Admin: 04/08/18 21:28 Dose: 150 mg Sodium Chloride (Ns Flush) 2 ml IV.FLUSH BID [facility] Last Admin: 04/08/18 21:30 Dose: Not Given Sodium Chloride (Ns Flush) 2 ml IV.FLUSH PRN PRN PRN Reason: FLUSH AFTER USING IV ACCESS Venlafaxine HCl (Effexor Xr) 150 mg PO DAILY [facility] Last Admin: 04/08/18 08:24 Dose: 150 mg Allergies/Adverse Reactions: Allergies Allergy/AdvReac Type Severity Reaction Status Date / Time penicillin G Allergy Severe TONGUE/ Verified 04/02/18 13:55 FACIAL SWELLING etodolac AdvReac Severe ANXIETY, Verified 04/02/18 13:55 AGITATION zolpidem AdvReac Severe HALLUCINATI Verified 04/02/18 13:55 ONS Physical Exam Vital signs: Vital Signs 04/08/18 08:00 04/08/18 09:00 04/08/18 12:00 Temperature 97.8 F 97.6 F Pulse Rate 76 71 68 Respiratory Rate 18 16 Blood Pressure 168/74 H 155/68 H Pulse Oximetry 95 97 04/08/18 16:00 04/08/18 20:00 04/09/18 00:00 Temperature 97.7 F 97.9 F 98.1 F Pulse Rate 70 76 76 Respiratory Rate 18 18 18 Blood Pressure 153/66 H 182/84 H 140/79 Pulse Oximetry 95 97 99 04/09/18 04:00 Temperature 98.1 F Pulse Rate 77 Respiratory Rate 18 Blood Pressure 171/81 H Pulse Oximetry 96 Intake & Output 04/08/18 04/09/18 04/09/18 18:59 06:59 18:59 Intake Total 1959 100 / 100 Balance 1960 / 1960 100 / 100 Weight 62.8 kg Intake: IV 1200 / 1200 100 / 100 D5W/NS + KCL 40 mEq Inj 1,000 1000 / 1000 ML @ 50 mls/hr IV.CONT .Q20H [facility] Rx#:[id number] Azactam Inj 1,000 MG In NS Inj 200 / 200 100 / 100 100 ML @ 200 mls/hr IV.SIG Q8H [facility] Rx#:[id number] Oral 760 / 760 Other: # Voids 1 # Incontinent Voids 1 # Urine Diapers 6 Date of Last Bowel Movement 04/07/18 04/07/18 # Bowel Movements 1 Narrative: awakens moving all well alert - Urinary Catheter Management Straight Cath placed during this visit: yes Reason for continuing: Not indwelling catheter Insertion time: 15:40 Objective Laboratory Results - last 24 hr 04/08/18 04/08/18 04/08/18 10:49 16:02 21:36 POC Glucose 99 97 103 04/09/18 07:04 POC Glucose 95 Microbiology 04/05/18 19:20 Aerobic Blood Culture - Preliminary Blood - Peripheral No growth in 3 days Anaerobic Blood Culture - Preliminary No growth in 3 days Review/Management - Review/Management Plan: imp left deep cva 60% or less left ica cow some dz not severe ldl nl on 81 asa labs pend bld cx pos echo and holter pend eeg shows sharps will start low dose keppra nd push up in few days oob ok some of the tele strips hard to tell if sr or not MED TEAM PLZ REVIEW ALL THE TELE STRIPS AND IF THINK ANY AFIB CALL CARDS 04/05/18 i am still unclear as to rhythm as noted above med team plz clarify on asa if not afib and echo nl and holter done could dc on keppra and asa 81mg with hx gi bleed and fu office 04/06/18 cards to see about rhythm stable neuro echo neg holter pend 04/07/18 cards unsure if afib or note holter pend on asa 81 keppra for abn eeg stable neuro daughter could call me if she thinks mom more lethargic on keppra seems a little sedate last few mornings ow could dc to ? rehab vs home PT 04/08/18 cards confirms afib today she really needs to stephane on anticoag and we could watch her h/h regularly on it ow she has very high risk 1% per month of another cva and disability from that i will dw daughter when she comes in today ow could dc 04/09/18 on eliquis 5 bid for acute cva and afib will need h/h watched by pcp o/p regularly with hx gib stable for dc to rehab by me i will sign off continue deppra i will fu office 4 weeks
[2018-04-09] MEDS: KCL 40 mEq/D5W/NaCl 0.9% Inj 1,000 ML IV.CONT SCH (08:11)
[2018-04-09] MEDS: Pregabalin 75 MG Capsule PO SCH ×2 (08:11→22:15)
[2018-04-09] MEDS: Insulin NovoLOG Aspart Correctional Sugar Inj SQ SCH ×4 (08:11→22:28)
[2018-04-09] MEDS: Ferrous Sulfate 325 MG Tablet PO SCH (08:12)
[2018-04-09] MEDS: amLODIPine 5 MG Tablet PO SCH (08:12)
[2018-04-09] MEDS: Calcium/Vitamin D 250/125 MG Tablet PO SCH (08:12)
[2018-04-09] MEDS: levETIRAcetam 500 MG Tablet PO SCH ×2 (08:13→22:14)
[2018-04-09] MEDS: Venlafaxine XR 75 MG Capsule PO SCH (08:13)
--- NOTE | 2018-04-09 10:12 | P.PN ---
Subjective Interval history: no complians speech clear no urinary symptoms telemetry- a fib rhythm- rate controlled no reported melena or hematochezia Physical Exam Vital signs: Vital Signs 04/08/18 12:00 04/08/18 16:00 04/08/18 20:00 Temperature 97.6 F 97.7 F 97.9 F Pulse Rate 68 70 76 Respiratory Rate 16 18 18 Blood Pressure 155/68 H 153/66 H 182/84 H Pulse Oximetry 97 95 97 04/09/18 00:00 04/09/18 04:00 04/09/18 08:00 Temperature 98.1 F 98.1 F 97.7 F Pulse Rate 76 77 68 Respiratory Rate 18 18 17 Blood Pressure 140/79 171/81 H 191/86 H Pulse Oximetry 99 96 99 Intake & Output 04/08/18 04/09/18 04/09/18 18:59 06:59 18:59 Intake Total 1959 / 1959 100 / 100 1100 / 1100 Balance 1959 100 / 100 1100 / 1100 Weight 62.8 kg Intake: IV 1200 / 1200 100 / 100 1100 / 1100 D5W/NS + KCL 40 mEq Inj 1,000 1000 / 1000 1000 / 1000 ML @ 50 mls/hr IV.CONT .Q20H [facility] Rx#:[id number] Azactam Inj 1,000 MG In NS Inj 200 / 200 100 / 100 100 / 100 100 ML @ 200 mls/hr IV.SIG Q8H [facility] Rx#:[id number] Oral 760 / 760 Other: # Voids 1 # Incontinent Voids 1 # Urine Diapers 6 Date of Last Bowel Movement 04/07/18 04/07/18 # Bowel Movements 1 Narrative: awake alert oriented x 3anicteric neck supple, no bruit lungs- no rales irregularly irregular rhythm abdomen soft, nntender extrmeiteis no edema - Urinary Catheter Management Straight Cath placed during this visit: yes Reason for continuing: Not indwelling catheter Insertion time: 15:40 Results - Labs CBC & Chem 7: 04/10/18 09:50 04/10/18 10:27 Laboratory Results - last 24 hr 04/08/18 04/08/18 04/08/18 10:49 16:02 21:36 POC Glucose 99 97 103 04/09/18 07:04 POC Glucose 95 Microbiology 04/05/18 19:20 Blood - Peripheral Aerobic Blood Culture - Preliminary No growth in 3 days 04/05/18 19:20 Blood - Peripheral Anaerobic Blood Culture - Preliminary No growth in 3 days Assessment and Plan - Plan 87-year-old female with a history of hypertension, dementia and anemia was brought to the ED for evaluation of altered mental status. Patient found to have an acute CVA and severe sepsis secondary to UTI. Acute Encephalopathy - multifactorial - MS improved CVA, acute left sided weakness- strength improving Head MRI shows a small acute to subacute lacunar type infarct involving the left basal ganglia with restricted diffusion -Appreciate neurology input. Patient started on aspirin. -2D echo showed mildly reduced LVEF of 45-50%. -Monitor telemetry, sinus arrhythmia versus A. fib. Cardiology consulted to assist with rhythm -A1C and lipids okay. -Carotid US with less than 50% stenosis Atrial fibrillation- rate controlled Cardiomyopathy EF 45-50%- not in clnical failure - cardiology ff-- - add eliquis 5 mg bid- d/w ptient and family 04/08- understands risks E coli Severe Sepsis secondary to UTI -2 L bolus given in ED, lactic resolved to 0.9 -Blood cultures grew E. coli -Continue IV antibiotics with aztreonam till 04/12 -Appreciate infectious disease following. FF Repeat blood cultures - negative last 48 hours Acute kidney injury, creatine 1.7, baseline .7, likely due to infection and dehydration -Renal functions normalized with IV fluid. IV fluid discontinued. Avoid nephrotoxins. HYpokalemia- - per family chronic, no diarrhea, not on any diuretics - Mg normal - unable to tolerate IV KCL - given main IVF with KCL - increase to 40 meq po bid - BMP now HTN, chronic -Continue amlodipine. Clonidine as needed. -Monitor vitals Dementia, chronic -Resume home dose Aricept History of gastric ulcers: - Continue PPI twice a day. Previously discussed risk and benefit with the patient's daughter. started eliquis 04/08 - DC ASA ff H and h DVT prophylaxis: Heparin sq- will DC since will be started on Eliquis PCP - Dr. Hobbs in [place] and CM DC planning- [facility]
[2018-04-09 10:38] LABS: Baso % (Auto) 0.5 % (0.0-2.0); Eos # (Auto) 0.1 th/mm3 (0.0-0.4); Eos % (Auto) 1.4 % (0.0-4.0); Hematocrit 35.1 % (35.0-46.0); Hemoglobin 11.9 gm/dL (11.6-15.3); Lymph # (Auto) 0.6 th/mm3 (1.0-4.8); Lymph % (Auto) 7.5 % (9.0-44.0); Mean Corpuscular HGB Conc 33.8 % (32.0-36.0); Mean Corpuscular Hemoglobin 31.5 pg (27.0-34.0); Mean Corpuscular Volume 93.3 fL (80.0-100.0); Mean Platelet Volume 8.3 fL (7.0-11.0); Mono # (Auto) 0.6 th/mm3 (0.0-0.9); Neut # (Auto) 7.3 th/mm3 (1.8-7.7); Neut % (Auto) 83.6 % (16.0-70.0); Platelet Count 177 th/mm3 (150-450); Red Blood Count 3.76 mil/mm3 (4.00-5.30); White Blood Count 8.7 th/mm3 (4.0-11.0)
[2018-04-09 10:54] LABS: Calcium 8.2 mg/dL (8.5-10.1); Carbon Dioxide 30.9 meq/L (21.0-32.0); Potassium 3.8 meq/L (3.5-5.1)
[2018-04-09 11:12] LABS: Eosinophils 2 % (0-4); Lymphocytes 5 % (9-44); Metamyelocytes 1 % (0-1); Monocytes 5 % (0-8); Myelocytes 1 % (0-0); Platelet Estimate Normal (Normal); Platelet Morphology Normal (Normal); Toxic Granulation 2+
[2018-04-09 16:19] LABS: Bilirubin,Urine Negative (Negative); Clarity,Urine Hazy (Clear); Color,Urine Straw (Yellw/Straw); Glucose,Urine (UA) Negative (Negative); Leukocyte Esterase,Urine Moderate (Negative); Mucus,Urine Few /lpf (Occasional); Nitrite,Urine Negative (Negative); Specific Gravity,Urine 1.008 (1.002-1.035); Squamous Epithelial Cell,Urine 1 /hpf (0-5)
[2018-04-09] MEDS: Montelukast 10 MG Tablet PO SCH (17:16)
--- NOTE | 2018-04-09 19:13 | P.CONREH ---
History of Present Illness Service: Physical medicine and rehabilitation Consult date: 04/09/18 Primary Care Provider: UNKNOWN Chief Complaint: CVA History of Present Illness: Marcie Morgan is an 87-year-old [id number] female admitted to [facility] 04/02/18 with change in mental status. She was found to have severe sepsis with UTI, acute kidney injury and dehydration. 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 Head MRA showed: Asymmetric decreased flow related to enhancement within the right M1 segment. Neurology recommended aspirin 81 mg daily. Patient was seen by cardiology 04/07/18 for atrial fibrillation. Aspirin was converted to Eliquis. Blood and urine culture showed E. coli. Patient was evaluated by infectious disease and aztreonam is to be continued through 04/12/18. [facility] - History History Provided By: Family Member - Medical History Medical History: Medical History (Last Reviewed 04/11/18 @ 09:15 by Soo Bennett MD) Anemia Dementia HTN (hypertension) Hypothyroidism - Surgical History Surgical History: Surgical History (Last Reviewed 04/11/18 @ 09:15 by Soo Bennett MD) History of hip replacement Hx of cholecystectomy - Family History Family History: Family History (Last Reviewed 04/06/18 @ 08:31 by Gabrielle Quijano) Other Family history unknown - Social History I have reviewed the patient's Social History: Yes - Tobacco History Second Hand Smoke Exposure: No Smoking Status: Never smoker - Alcohol History How Often Do You Have a Drink Containing Alcohol: Never - Substance Use History Substance History: No History of Abuse - Travel History Recent Travel in the [facility] Within the Last 8 Weeks: No Recent Travel Out of the Country Within the Last 8 Weeks: No - Immunization History Tetanus Immunization: >5 Years Medications and Allergies Active Medications: Active Medications Acetaminophen (Tylenol) 650 mg PO Q4H PRN PRN Reason: fever or bowman Last Admin: 04/04/18 12:22 Dose: 650 mg Amlodipine Besylate (Norvasc) 10 mg PO DAILY [facility] Last Admin: 04/09/18 08:12 Dose: 10 mg Apixaban (Eliquis) 5 mg PO BID [facility] Last Admin: 04/09/18 08:11 Dose: 5 mg Atorvastatin Calcium (Lipitor) 10 mg PO DAILY [facility] Last Admin: 04/09/18 08:13 Dose: 10 mg Calcium/Vitamin D (Oscal With D 250/125 Mg) 2 tab PO DAILY [facility] Last Admin: 04/09/18 08:12 Dose: 2 tab Clonidine HCl (Catapres) 0.1 mg PO Q6H PRN PRN Reason: SYS BP GREATER THAN 180 [facility] Last Admin: 04/06/18 18:15 Dose: 0.1 mg Dextrose (D50w Vial) 50 ml IV.PUSH UNSCH PRN PRN Reason: PER HYPOGLYCEMIA PROTOCOL Donepezil HCl (Aricept) 23 mg PO DAILY [facility] Last Admin: 04/09/18 08:12 Dose: 23 mg Ferrous Sulfate (Ferosul) 325 mg PO DAILY [facility] Last Admin: 04/09/18 08:12 Dose: 325 mg Glucagon (Glucagon Inj) 1 mg OTHER UNSCH PRN PRN Reason: for Hypoglycemia Protocol Aztreonam 1,000 mg/ Sodium (Chloride) 100 mls @ 200 mls/hr IV.SIG Q8H [facility] Last Infusion: 04/09/18 18:40 Dose: Infused Potassium Chloride/Dextrose/Sod Cl (D5w/Ns + Kcl 40 Meq Inj) 1,000 mls @ 50 mls /hr IV.CONT .Q20H [facility] Last Admin: 04/09/18 08:11 Dose: 50 mls/hr Insulin Aspart (Novolog Insulin Correctional Sugar Inj) 0 unit SQ ACHS [facility]; Protocol Last Admin: 04/09/18 17:10 Dose: Not Given Levetiracetam (Keppra) 500 mg PO BID [facility] Last Admin: 04/09/18 08:13 Dose: 500 mg Levothyroxine Sodium (Synthroid) 50 mcg PO DAILY@0600 [facility] Last Admin: 04/09/18 06:04 Dose: 50 mcg Montelukast Sodium (Singulair) 10 mg PO DAILY@1800 [facility] Last Admin: 04/09/18 17:16 Dose: 10 mg Pantoprazole Sodium (Protonix) 40 mg PO BID [facility] Last Admin: 04/09/18 08:12 Dose: 40 mg Potassium Chloride (K-Dur) 40 meq PO BID [facility] Last Admin: 04/09/18 08:13 Dose: 40 meq Pravastatin Sodium (Pravachol) 40 mg PO HS [facility] Last Admin: 04/08/18 21:28 Dose: 40 mg Pregabalin (Lyrica) 150 mg PO BID [facility] Last Admin: 04/09/18 08:11 Dose: 150 mg Sodium Chloride (Ns Flush) 2 ml IV.FLUSH BID [facility] Last Admin: 04/09/18 08:13 Dose: 2 ml Sodium Chloride (Ns Flush) 2 ml IV.FLUSH PRN PRN PRN Reason: FLUSH AFTER USING IV ACCESS Venlafaxine HCl (Effexor Xr) 150 mg PO DAILY [facility] Last Admin: 04/09/18 08:13 Dose: 150 mg Allergies Allergy/AdvReac Type Severity Reaction Status Date / Time penicillin G Allergy Severe TONGUE/ Verified 04/02/18 13:55 FACIAL SWELLING etodolac AdvReac Severe ANXIETY, Verified 04/02/18 13:55 AGITATION zolpidem AdvReac Severe HALLUCINATI Verified 04/02/18 13:55 ONS Home Medications Medication Instructions Recorded Confirmed Type atorvastatin [Lipitor] 10 mg PO DAILY 04/02/18 04/02/18 History calcium carbonate-vitamin D3 1 tab PO DAILY 04/02/18 04/02/18 History [Calcium with Vitamin D] donepezil [Aricept] 23 mg PO DAILY 04/02/18 04/02/18 History ferrous sulfate 325 mg PO DAILY 04/02/18 04/02/18 History hydrochlorothiazide 25 mg PO DAILY 04/02/18 04/02/18 History hydrocodone-acetaminophen 1 tab PO QID PRN 04/02/18 04/02/18 History levothyroxine 50 mcg PO DAILY 04/02/18 04/02/18 History montelukast 10 mg PO QPM 04/02/18 04/02/18 History pantoprazole 40 mg PO BID 04/02/18 04/02/18 History pregabalin [Lyrica] 150 mg PO BID 04/02/18 04/02/18 History venlafaxine [Effexor XR] 150 mg PO DAILY 04/02/18 04/02/18 History Exam - Physical Examination Vital Signs / I&O: Vital Signs 04/08/18 20:00 04/09/18 00:00 04/09/18 04:00 Temperature 97.9 F 98.1 F 98.1 F Pulse Rate 76 76 77 Respiratory Rate 18 18 18 Blood Pressure 182/84 H 140/79 171/81 H Pulse Oximetry 97 99 96 04/09/18 08:00 04/09/18 09:00 04/09/18 12:00 Temperature 97.7 F 97.9 F Pulse Rate 68 69 74 Respiratory Rate 17 14 Blood Pressure 191/86 H 156/87 H Pulse Oximetry 99 97 04/09/18 16:00 Temperature 97.9 F Pulse Rate 77 Respiratory Rate 16 Blood Pressure 151/68 H Pulse Oximetry 97 Intake & Output 04/09/18 04/09/18 04/10/18 06:59 18:59 06:59 Intake Total 100 / 100 2820 / 2820 Balance 100 / 100 2820 / 2820 Weight 62.8 kg Intake: IV 100 / 100 1200 / 1200 D5W/NS + KCL 40 mEq Inj 1,000 1000 / 1000 ML @ 50 mls/hr IV.CONT .Q20H [facility] Rx#:[id number] Azactam Inj 1,000 MG In NS Inj 100 / 100 200 / 200 100 ML @ 200 mls/hr IV.SIG Q8H [facility] Rx#:[id number] Oral 1620 / 1620 Other: # Voids 1 3 Date of Last Bowel Movement 04/07/18 04/09/18 # Bowel Movements 3 Intake & Output 04/07/18 04/08/18 04/09/18 04/10/18 06:59 06:59 06:59 06:59 Intake Total 640 / 640 1150 / 1150 20590 2820 / 2820 Output Total 200 / 200 Balance 440 / 440 1150 / 1150 2059 2820 / 2820 Weight 63.2 kg 63.2 kg 62.8 kg General: No acute distress, Other (Daughter and son-in-law at bedside) Respiratory: Lungs CTA, Non-labored respirations, BS equal Gastrointestinal: Positive bowel sounds, Non-tender Date of Last Bowel Movement: 04/09/18 Cardiovascular: Normal rate, Irregular rhythm Skin: No rash Musculoskeletal: Swelling (None in distal lower extremities) Psychiatric: Cooperative, Appropriate mood & affect - Neurologic Orientation: oriented to: Self, Place, Situation, disoriented to: Time Neurologic: Cranial nerves (Grossly intact), Speech (Intelligible), Coordination (Slightly decreased in the right upper extremity), Other (Moves both upper and lower extremities symmetrically with 4+/5 strength) Spasticity: None noted Sensory: Sensation is grossly intact in both upper and lower extremities to light touch DTRs: Normal Babinski: Negative Clonus: Negative Results - Labs CBC & Chem 7: 04/10/18 09:50 04/10/18 10:27 Labs: Laboratory Results - last 24 hr 04/08/18 04/09/18 04/09/18 21:36 07:04 10:20 WBC RBC Hgb Hct MCV MCH MCHC RDW Plt Count MPV Prelim Diff (Auto) Neut % (Auto) Lymph % (Auto) Keith % (Auto) Eos % (Auto) Baso % (Auto) Neut # (Auto) Lymph # (Auto) Keith # (Auto) Eos # (Auto) Baso # (Auto) WBC Differential Seg Neuts % (Manual) Band Neuts % (Manual) Lymphocytes % (Manual) Monocytes % (Manual) Eosinophils % (Manual) Metamyelocytes % (Man) Myelocytes % (Man) Abs Neuts (Manual) Differential Comment Toxic Granulation Platelet Estimate Platelet Morphology Sodium 145 Potassium 3.8 Chloride 107 Carbon Dioxide 30.9 Anion Gap 7 BUN 8 Creatinine 0.65 Estimated GFR 86 L POC Glucose 103 95 Random Glucose 99 Calcium 8.2 L Urine Color Urine Clarity Urine pH Ur Specific Hilliard Urine Protein Urine Glucose (UA) Urine Ketones Urine Occult Blood Urine Nitrate Urine Bilirubin Urine Urobilinogen Ur Leukocyte Esterase Urine RBC Urine WBC Ur Squamous Epith Cells Urine Mucus Micro UA Comment Ur Microscopic Review Urine Culture Comments 04/09/18 04/09/18 04/09/18 10:20 11:18 15:20 WBC 8.7 RBC 3.76 L Hgb 11.9 Hct 35.1 MCV 93.3 MCH 31.5 MCHC 33.8 RDW 20.0 H Plt Count 177 MPV 8.3 Prelim Diff (Auto) Slide review pending Neut % (Auto) 83.6 H Lymph % (Auto) 7.5 L Keith % (Auto) 7.0 Eos % (Auto) 1.4 Baso % (Auto) 0.5 Neut # (Auto) 7.3 Lymph # (Auto) 0.6 L Keith # (Auto) 0.6 Eos # (Auto) 0.1 Baso # (Auto) 0.0 WBC Differential Manual diff final Seg Neuts % (Manual) 79 H Band Neuts % (Manual) 7 H Lymphocytes % (Manual) 5 L Monocytes % (Manual) 5 Eosinophils % (Manual) 2 Metamyelocytes % (Man) 1 Myelocytes % (Man) 1 H Abs Neuts (Manual) 7.7 Differential Comment . Toxic Granulation 2+ H Platelet Estimate Normal Platelet Morphology Normal Sodium Potassium Chloride Carbon Dioxide Anion Gap BUN Creatinine Estimated GFR POC Glucose 83 Random Glucose Calcium Urine Color Straw Urine Clarity Hazy H Urine pH 6.0 Ur Specific Hilliard 1.008 Urine Protein Negative Urine Glucose (UA) Negative Urine Ketones Negative Urine Occult Blood Large H Urine Nitrate Negative Urine Bilirubin Negative Urine Urobilinogen Less than 2 Ur Leukocyte Esterase Moderate H Urine RBC 38 H Urine WBC 30 H Ur Squamous Epith Cells 1 Urine Mucus Few H Micro UA Comment Cath-culture ind Ur Microscopic Review Not Reportable Urine Culture Comments Cath-cult indicated 04/09/18 15:50 WBC RBC Hgb Hct MCV MCH MCHC RDW Plt Count MPV Prelim Diff (Auto) Neut % (Auto) Lymph % (Auto) Keith % (Auto) Eos % (Auto) Baso % (Auto) Neut # (Auto) Lymph # (Auto) Keith # (Auto) Eos # (Auto) Baso # (Auto) WBC Differential Seg Neuts % (Manual) Band Neuts % (Manual) Lymphocytes % (Manual) Monocytes % (Manual) Eosinophils % (Manual) Metamyelocytes % (Man) Myelocytes % (Man) Abs Neuts (Manual) Differential Comment Toxic Granulation Platelet Estimate Platelet Morphology Sodium Potassium Chloride Carbon Dioxide Anion Gap BUN Creatinine Estimated GFR POC Glucose 112 H Random Glucose Calcium Urine Color Urine Clarity Urine pH Ur Specific Hilliard Urine Protein Urine Glucose (UA) Urine Ketones Urine Occult Blood Urine Nitrate Urine Bilirubin Urine Urobilinogen Ur Leukocyte Esterase Urine RBC Urine WBC Ur Squamous Epith Cells Urine Mucus Micro UA Comment Ur Microscopic Review Urine Culture Comments Assessment and Plan (1) CVA (cerebral vascular accident) Status: Acute Code(s): I63.9 - Cerebral infarction, unspecified - Plan Assessment: 1. Left basal ganglia infarct 2. Sepsis: Aztreonam to be continued through 04/12/18. ID is following 3. Dementia 4. Hypertension 5. Atrial fibrillation 6. Anemia Recommendations: 1. PT mobilizing and now CG ambulation 90 feet with walker. At home was using rollator. Continue fall precautions. 2. CG with ADL's per OT. Continue to advance as tolerated 3. Case management addressing discharge planning and patient for SNF placement in [place] close to family and home. 4. Will follow while hospitalized and at discharge as appropriate 5. Rehab plan of care discussed with patient and family and questions answered. Thank you for this consult
[2018-04-09] MEDS: Acetaminophen 325 MG Tablet PO PRN (22:15)
--- NOTE | 2018-04-09 22:32 | P.PNCA ---
Subjective Interval history: No events overnight Resting comfortably, awakes to questions Medications and Allergies Active Medications: Active Medications Acetaminophen (Tylenol) 650 mg PO Q4H PRN PRN Reason: fever or bowman Last Admin: 04/09/18 22:15 Dose: 650 mg Amlodipine Besylate (Norvasc) 10 mg PO DAILY [facility] Last Admin: 04/09/18 08:12 Dose: 10 mg Apixaban (Eliquis) 5 mg PO BID [facility] Last Admin: 04/09/18 22:15 Dose: 5 mg Atorvastatin Calcium (Lipitor) 10 mg PO DAILY [facility] Last Admin: 04/09/18 08:13 Dose: 10 mg Calcium/Vitamin D (Oscal With D 250/125 Mg) 2 tab PO DAILY [facility] Last Admin: 04/09/18 08:12 Dose: 2 tab Clonidine HCl (Catapres) 0.1 mg PO Q6H PRN PRN Reason: SYS BP GREATER THAN 180 [facility] Last Admin: 04/09/18 22:14 Dose: 0.1 mg Dextrose (D50w Vial) 50 ml IV.PUSH UNSCH PRN PRN Reason: PER HYPOGLYCEMIA PROTOCOL Donepezil HCl (Aricept) 23 mg PO DAILY [facility] Last Admin: 04/09/18 08:12 Dose: 23 mg Ferrous Sulfate (Ferosul) 325 mg PO DAILY [facility] Last Admin: 04/09/18 08:12 Dose: 325 mg Glucagon (Glucagon Inj) 1 mg OTHER UNSCH PRN PRN Reason: for Hypoglycemia Protocol Aztreonam 1,000 mg/ Sodium (Chloride) 100 mls @ 200 mls/hr IV.SIG Q8H [facility] Last Infusion: 04/09/18 18:40 Dose: Infused Potassium Chloride/Dextrose/Sod Cl (D5w/Ns + Kcl 40 Meq Inj) 1,000 mls @ 50 mls /hr IV.CONT .Q20H [facility] Last Admin: 04/09/18 08:11 Dose: 50 mls/hr Insulin Aspart (Novolog Insulin Correctional Sugar Inj) 0 unit SQ ACHS [facility]; Protocol Last Admin: 04/09/18 22:28 Dose: Not Given Levetiracetam (Keppra) 500 mg PO BID [facility] Last Admin: 04/09/18 22:14 Dose: 500 mg Levothyroxine Sodium (Synthroid) 50 mcg PO DAILY@0600 [facility] Last Admin: 04/09/18 06:04 Dose: 50 mcg Montelukast Sodium (Singulair) 10 mg PO DAILY@1800 [facility] Last Admin: 04/09/18 17:16 Dose: 10 mg Pantoprazole Sodium (Protonix) 40 mg PO BID [facility] Last Admin: 04/09/18 22:14 Dose: 40 mg Potassium Chloride (K-Dur) 40 meq PO BID [facility] Last Admin: 04/09/18 22:14 Dose: 40 meq Pravastatin Sodium (Pravachol) 40 mg PO HS [facility] Last Admin: 04/09/18 22:15 Dose: 40 mg Pregabalin (Lyrica) 150 mg PO BID [facility] Last Admin: 04/09/18 22:15 Dose: 150 mg Sodium Chloride (Ns Flush) 2 ml IV.FLUSH BID [facility] Last Admin: 04/09/18 22:16 Dose: 2 ml Sodium Chloride (Ns Flush) 2 ml IV.FLUSH PRN PRN PRN Reason: FLUSH AFTER USING IV ACCESS Venlafaxine HCl (Effexor Xr) 150 mg PO DAILY [facility] Last Admin: 04/09/18 08:13 Dose: 150 mg Allergies Allergy/AdvReac Type Severity Reaction Status Date / Time penicillin G Allergy Severe TONGUE/ Verified 04/02/18 13:55 FACIAL SWELLING etodolac AdvReac Severe ANXIETY, Verified 04/02/18 13:55 AGITATION zolpidem AdvReac Severe HALLUCINATI Verified 04/02/18 13:55 ONS Home Medications Medication Instructions Recorded Confirmed Type atorvastatin [Lipitor] 10 mg PO DAILY 04/02/18 04/02/18 History calcium carbonate-vitamin D3 1 tab PO DAILY 04/02/18 04/02/18 History [Calcium with Vitamin D] donepezil [Aricept] 23 mg PO DAILY 04/02/18 04/02/18 History ferrous sulfate 325 mg PO DAILY 04/02/18 04/02/18 History hydrochlorothiazide 25 mg PO DAILY 04/02/18 04/02/18 History hydrocodone-acetaminophen 1 tab PO QID PRN 04/02/18 04/02/18 History levothyroxine 50 mcg PO DAILY 04/02/18 04/02/18 History montelukast 10 mg PO QPM 04/02/18 04/02/18 History pantoprazole 40 mg PO BID 04/02/18 04/02/18 History pregabalin [Lyrica] 150 mg PO BID 04/02/18 04/02/18 History venlafaxine [Effexor XR] 150 mg PO DAILY 04/02/18 04/02/18 History Physical Exam Vital signs: Vital Signs 04/09/18 00:00 04/09/18 04:00 04/09/18 08:00 Temperature 98.1 F 98.1 F 97.7 F Pulse Rate 76 77 68 Respiratory Rate 18 18 17 Blood Pressure 140/79 171/81 H 191/86 H Pulse Oximetry 99 96 99 04/09/18 09:00 04/09/18 12:00 04/09/18 16:00 Temperature 97.9 F 97.9 F Pulse Rate 69 74 77 Respiratory Rate 14 16 Blood Pressure 156/87 H 151/68 H Pulse Oximetry 97 97 04/09/18 20:00 Temperature 98.2 F Pulse Rate 87 Respiratory Rate 16 Blood Pressure 182/71 H Pulse Oximetry 98 Intake & Output 04/09/18 04/09/18 04/10/18 06:59 18:59 06:59 Intake Total 100 / 100 2820 / 2820 Balance 100 / 100 2820 / 2820 Weight 62.8 kg Intake: IV 100 / 100 1200 / 1200 D5W/NS + KCL 40 mEq Inj 1,000 1000 / 1000 ML @ 50 mls/hr IV.CONT .Q20H [facility] Rx#:[id number] Azactam Inj 1,000 MG In NS Inj 100 / 100 200 / 200 100 ML @ 200 mls/hr IV.SIG Q8H [facility] Rx#:[id number] Oral 1620 / 1620 Other: # Voids 1 3 Date of Last Bowel Movement 04/07/18 04/09/18 04/09/18 # Bowel Movements 3 Narrative: GENERAL: NAD SKIN: Warm and dry. HEAD: Atraumatic. Normocephalic. EYES: Pupils equal and round. No scleral icterus. No injection or drainage. ENT: No nasal bleeding or discharge. Mucous membranes pink and moist. NECK: Trachea midline. No JVD. CARDIOVASCULAR: Irregularly irregular RESPIRATORY: No accessory muscle use. Clear to auscultation. Breath sounds equal bilaterally. GASTROINTESTINAL: Abdomen soft, non-tender, nondistended. Hepatic and splenic margins not palpable. MUSCULOSKELETAL: Extremities without clubbing, cyanosis, or edema. No obvious deformities. NEUROLOGICAL: No focal deficits - Urinary Catheter Management Straight Cath placed during this visit: yes Reason for continuing: Not indwelling catheter Insertion time: 15:40 Results 04/09/18 10:20 04/09/18 10:20 CBC 04/09/18 Range/Units 10:20 WBC 8.7 (4.0-11.0) th/mm3 RBC 3.76 L (4.00-5.30) mil/mm3 Hgb 11.9 (11.6-15.3) gm/dL Hct 35.1 (35.0-46.0) % Plt Count 177 (150-450) th/mm3 Neut # (Auto) 7.3 (1.8-7.7) th/mm3 Lymph # (Auto) 0.6 L (1.0-4.8) th/mm3 [place] # (Auto) 0.6 (0.0-0.9) th/mm3 Eos # (Auto) 0.1 (0.0-0.4) th/mm3 Baso # (Auto) 0.0 (0.0-0.2) th/mm3 Comprehensive Metabolic Panel 04/08/18 04/09/18 Range/Units 03:55 10:20 Sodium 146 H 145 (136-145) meq/L Potassium 3.1 L 3.8 (3.5-5.1) meq/L Chloride 106 107 (98-107) meq/L Carbon Dioxide 30.7 30.9 (21.0-32.0) meq/L BUN 10 8 (7-18) mg/dL Creatinine 0.60 0.65 (0.50-1.00) mg/dL Calcium 7.9 L 8.2 L (8.5-10.1) mg/dL Intake and Output 04/09/18 04/09/18 04/09/18 06:59 14:59 22:59 Intake Total 100 / 100 1100 / 1100 1720 / 1720 Balance 100 / 100 1100 / 1100 1720 / 1720 Intake: IV 100 / 100 1100 / 1100 100 / 100 D5W/NS + KCL 40 mEq Inj 1,000 1000 / 1000 ML @ 50 mls/hr IV.CONT .Q20H [facility] Rx#:[id number] Azactam Inj 1,000 MG In NS Inj 100 / 100 100 / 100 100 / 100 100 ML @ 200 mls/hr IV.SIG Q8H [facility] Rx#:[id number] Oral 1620 / 1620 Other: # Voids 1 3 Date of Last Bowel Movement 04/09/18 04/09/18 # Bowel Movements 3 Weight 62.8 kg Assessment and Plan - Assessment (1) CVA (cerebral vascular accident) Code(s): I63.9 - Cerebral infarction, unspecified Status: Acute (2) Afib Code(s): I48.91 - Unspecified atrial fibrillation Status: Acute (3) Stomach ulcer Code(s): K25.9 - Gastric ulcer, unspecified as acute or chronic, without hemorrhage or perforation Status: Acute - Plan 1) CVA Per neurology 2) Afib Appears to have Afib on telemetry Rates controlled Neuro/Primary team discussed with daughter about risks/benefits and they decided to place her on Eliquis 5mg BID Agree with stopping ASA 3) History of stomach ulcer with significant bleed 4) No further cardiovascular work up 5) HTN Con't on Norvasc Will add Lisinopril 6) HLD Currently on Pravastatin and Lipitor, will DC Pravastatin
[2018-04-10] MEDS: KCL 40 mEq/D5W/NaCl 0.9% Inj 1,000 ML IV.CONT SCH (01:09)
[2018-04-10] MEDS: Levothyroxine 50 MCG Tablet PO SCH (06:13)
[2018-04-10] MEDS: Venlafaxine XR 75 MG Capsule PO SCH (09:13)
[2018-04-10] MEDS: Pregabalin 75 MG Capsule PO SCH ×2 (09:14→20:01)
[2018-04-10] MEDS: Calcium/Vitamin D 250/125 MG Tablet PO SCH (09:14)
[2018-04-10] MEDS: levETIRAcetam 500 MG Tablet PO SCH ×2 (09:14→20:02)
[2018-04-10] MEDS: amLODIPine 5 MG Tablet PO SCH (09:15)
[2018-04-10] MEDS: Lisinopril 5 MG Tablet PO SCH (09:15)
[2018-04-10] MEDS: Ferrous Sulfate 325 MG Tablet PO SCH (09:15)
--- NOTE | 2018-04-10 10:05 | P.PN ---
Subjective Interval history: no complains- awake and alert denies any ehadaches, or nausea or vomiting Physical Exam Vital signs: Vital Signs 04/09/18 12:00 04/09/18 16:00 04/09/18 20:00 Temperature 97.9 F 97.9 F 98.2 F Pulse Rate 74 77 87 Respiratory Rate 14 16 16 Blood Pressure 156/87 H 151/68 H 182/71 H Pulse Oximetry 97 97 98 04/10/18 00:00 04/10/18 01:18 04/10/18 04:00 Temperature 97.9 F 98.2 F Pulse Rate 75 67 Respiratory Rate 16 16 Blood Pressure 199/91 H 132/63 134/62 Pulse Oximetry 98 96 04/10/18 08:00 Temperature 97.8 F Pulse Rate 68 Respiratory Rate 16 Blood Pressure 166/76 H Pulse Oximetry 98 Intake & Output 04/09/18 04/10/18 04/10/18 18:59 06:59 18:59 Intake Total 2820 / 2820 100 / 100 Balance 2820 / 2820 100 / 100 Weight 61.7 kg Intake: IV 1200 / 1200 100 / 100 D5W/NS + KCL 40 mEq Inj 1,000 1000 / 1000 ML @ 50 mls/hr IV.CONT .Q20H [facility] Rx#:[id number] Azactam Inj 1,000 MG In NS Inj 200 / 200 100 / 100 100 ML @ 200 mls/hr IV.SIG Q8H [facility] Rx#:[id number] Oral 1620 / 1620 Other: # Voids 3 1 1 # Urine Diapers 1 Date of Last Bowel Movement 04/09/18 04/10/18 04/10/18 # Bowel Movements 3 1 1 Narrative: awake alert oriented x 3anicteric neck supple, no bruit lungs- no rales irregularly irregular rhythm abdomen soft, nntender extrmeiteis no edema - Urinary Catheter Management Straight Cath placed during this visit: yes Reason for continuing: Not indwelling catheter Insertion time: 15:40 Results - Labs CBC & Chem 7: 04/10/18 09:50 04/10/18 10:27 Laboratory Results - last 24 hr 04/09/18 04/09/18 04/09/18 10:20 10:20 11:18 WBC 8.7 RBC 3.76 L Hgb 11.9 Hct 35.1 MCV 93.3 MCH 31.5 MCHC 33.8 RDW 20.0 H Plt Count 177 MPV 8.3 Prelim Diff (Auto) Slide review pending Neut % (Auto) 83.6 H Lymph % (Auto) 7.5 L [place] % (Auto) 7.0 Eos % (Auto) 1.4 Baso % (Auto) 0.5 Neut # (Auto) 7.3 Lymph # (Auto) 0.6 L [place] # (Auto) 0.6 Eos # (Auto) 0.1 Baso # (Auto) 0.0 WBC Differential Manual diff final Seg Neuts % (Manual) 79 H Band Neuts % (Manual) 7 H Lymphocytes % (Manual) 5 L Monocytes % (Manual) 5 Eosinophils % (Manual) 2 Metamyelocytes % (Man) 1 Myelocytes % (Man) 1 H Abs Neuts (Manual) 7.7 Differential Comment . Toxic Granulation 2+ H Platelet Estimate Normal Platelet Morphology Normal Sodium 145 Potassium 3.8 Chloride 107 Carbon Dioxide 30.9 Anion Gap 7 BUN 8 Creatinine 0.65 Estimated GFR 86 L POC Glucose 83 Random Glucose 99 Calcium 8.2 L Urine Color Urine Clarity Urine pH Ur Specific [place] Urine Protein Urine Glucose (UA) Urine Ketones Urine Occult Blood Urine Nitrate Urine Bilirubin Urine Urobilinogen Ur Leukocyte Esterase Urine RBC Urine WBC Ur Squamous Epith Cells Urine Mucus Micro UA Comment Ur Microscopic Review Urine Culture Comments 04/09/18 04/09/18 04/09/18 15:20 15:50 22:27 WBC RBC Hgb Hct MCV MCH MCHC RDW Plt Count MPV Prelim Diff (Auto) Neut % (Auto) Lymph % (Auto) [place] % (Auto) Eos % (Auto) Baso % (Auto) Neut # (Auto) Lymph # (Auto) [place] # (Auto) Eos # (Auto) Baso # (Auto) WBC Differential Seg Neuts % (Manual) Band Neuts % (Manual) Lymphocytes % (Manual) Monocytes % (Manual) Eosinophils % (Manual) Metamyelocytes % (Man) Myelocytes % (Man) Abs Neuts (Manual) Differential Comment Toxic Granulation Platelet Estimate Platelet Morphology Sodium Potassium Chloride Carbon Dioxide Anion Gap BUN Creatinine Estimated GFR POC Glucose 112 H 94 Random Glucose Calcium Urine Color Straw Urine Clarity Hazy H Urine pH 6.0 Ur Specific [place] 1.008 Urine Protein Negative Urine Glucose (UA) Negative Urine Ketones Negative Urine Occult Blood Large H Urine Nitrate Negative Urine Bilirubin Negative Urine Urobilinogen Less than 2 Ur Leukocyte Esterase Moderate H Urine RBC 38 H Urine WBC 30 H Ur Squamous Epith Cells 1 Urine Mucus Few H Micro UA Comment Cath-culture ind Ur Microscopic Review Not Reportable Urine Culture Comments Cath-cult indicated Microbiology 04/05/18 19:20 Blood - Peripheral Aerobic Blood Culture - Preliminary No growth in 4 days 04/05/18 19:20 Blood - Peripheral Anaerobic Blood Culture - Preliminary No growth in 4 days Assessment and Plan - Plan 87-year-old female with a history of hypertension, dementia and anemia was brought to the ED for evaluation of altered mental status. Patient found to have an acute CVA and severe sepsis secondary to UTI. Acute Encephalopathy - multifactorial - MS improved CVA, acute left sided weakness- strength improving Head MRI shows a small acute to subacute lacunar type infarct involving the left basal ganglia with restricted diffusion -Appreciate neurology input. Patient started on aspirin. -2D echo showed mildly reduced LVEF of 45-50%. -A1C and lipids okay. -Carotid US with less than 50% stenosis Atrial fibrillation- rate controlled Cardiomyopathy EF 45-50%- not in clnical failure - cardiology ff-- - add eliquis 5 mg bid- d/w ptient and family 04/08- understands risks - no reported melena or hematohcezia- stools liht brown - H and H stable - started on Lisinopril 04/09- ff BMP E coli Severe Sepsis secondary to UTI -2 L bolus given in ED, lactic resolved to 0.9 -Blood cultures grew E. coli -Continue IV antibiotics with aztreonam till 04/12 -Appreciate infectious disease following. FF Repeat blood cultures - negative Acute kidney injury, creatine 1.7, baseline .7, likely due to infection and dehydration -Renal functions normalized with IV fluid. -IV fluid discontinued. Avoid nephrotoxins. - started on KENZIE 04/09- check BMP now HYpokalemia- - IMproved per family chronic, no diarrhea, not on any diuretics - Mg normal - unable to tolerate IV KCL - ion 40 meq po bid - cehck BMP now HTN, chronic -Continue amlodipine. Clonidine as needed. -Monitor vitals Dementia, chronic -Resume home dose Aricept History of gastric ulcers: - Continue PPI twice a day. Previously discussed risk and benefit with the patient's daughter. started eliquis 04/08 - DC ASA ff H and h DVT prophylaxis: Heparin sq- will DC since will be started on Eliquis PCP - Dr. Hobbs in [place] and CM DC planning- SNF
[2018-04-10 11:20] LABS: Baso % (Auto) 0.4 % (0.0-2.0); Eos # (Auto) 0.2 th/mm3 (0.0-0.4); Eos % (Auto) 1.6 % (0.0-4.0); Hematocrit 34.8 % (35.0-46.0); Hemoglobin 11.5 gm/dL (11.6-15.3); Lymph # (Auto) 0.8 th/mm3 (1.0-4.8); Lymph % (Auto) 8.6 % (9.0-44.0); Mean Corpuscular HGB Conc 33.2 % (32.0-36.0); Mean Corpuscular Hemoglobin 31.6 pg (27.0-34.0); Mean Corpuscular Volume 95.3 fL (80.0-100.0); Mean Platelet Volume 8.2 fL (7.0-11.0); Mono # (Auto) 0.6 th/mm3 (0.0-0.9); Mono % (Auto) 6.4 % (0.0-8.0); Neut # (Auto) 7.9 th/mm3 (1.8-7.7); Platelet Count 186 th/mm3 (150-450); Red Blood Count 3.65 mil/mm3 (4.00-5.30); Red Cell Distribution Width 20.1 % (11.6-17.2); White Blood Count 9.5 th/mm3 (4.0-11.0)
[2018-04-10 11:38] LABS: Calcium 7.9 mg/dL (8.5-10.1); Carbon Dioxide 29.9 meq/L (21.0-32.0); Potassium 4.3 meq/L (3.5-5.1)
[2018-04-10] MEDS: Insulin NovoLOG Aspart Correctional Sugar Inj SQ SCH (11:40)
[2018-04-10 11:52] LABS: Lymphocytes 8 % (9-44); Monocytes 8 % (0-8); Myelocytes 1 % (0-0); Toxic Granulation 1+
[2018-04-10 11:53] LABS: Platelet Estimate Normal (Normal); Platelet Morphology Normal (Normal)
--- NOTE | 2018-04-10 15:32 | P.PNCA ---
Subjective Interval history: No events overnight Medications and Allergies Active Medications: Active Medications Acetaminophen (Tylenol) 650 mg PO Q4H PRN PRN Reason: fever or bowman Last Admin: 04/09/18 22:15 Dose: 650 mg Amlodipine Besylate (Norvasc) 10 mg PO DAILY [facility] Last Admin: 04/10/18 09:15 Dose: 10 mg Apixaban (Eliquis) 5 mg PO BID [facility] Last Admin: 04/10/18 09:15 Dose: 5 mg Atorvastatin Calcium (Lipitor) 10 mg PO DAILY [facility] Last Admin: 04/10/18 09:14 Dose: 10 mg Calcium/Vitamin D (Oscal With D 250/125 Mg) 2 tab PO DAILY [facility] Last Admin: 04/10/18 09:14 Dose: 2 tab Clonidine HCl (Catapres) 0.1 mg PO Q6H PRN PRN Reason: SYS BP GREATER THAN 180 [facility] Last Admin: 04/09/18 22:14 Dose: 0.1 mg Dextrose (D50w Vial) 50 ml IV.PUSH UNSCH PRN PRN Reason: PER HYPOGLYCEMIA PROTOCOL Donepezil HCl (Aricept) 23 mg PO DAILY [facility] Last Admin: 04/10/18 09:14 Dose: 23 mg Ferrous Sulfate (Ferosul) 325 mg PO DAILY [facility] Last Admin: 04/10/18 09:15 Dose: 325 mg Glucagon (Glucagon Inj) 1 mg OTHER UNSCH PRN PRN Reason: for Hypoglycemia Protocol Aztreonam 1,000 mg/ Sodium (Chloride) 100 mls @ 200 mls/hr IV.SIG Q8H [facility] Last Admin: 04/10/18 15:00 Dose: 200 mls/hr Levetiracetam (Keppra) 500 mg PO BID [facility] Last Admin: 04/10/18 09:14 Dose: 500 mg Levothyroxine Sodium (Synthroid) 50 mcg PO DAILY@0600 [facility] Last Admin: 04/10/18 06:13 Dose: 50 mcg Lisinopril (Prinivil) 2.5 mg PO DAILY [facility] Last Admin: 04/10/18 09:15 Dose: 2.5 mg Montelukast Sodium (Singulair) 10 mg PO DAILY@1800 [facility] Last Admin: 04/09/18 17:16 Dose: 10 mg Pantoprazole Sodium (Protonix) 40 mg PO BID [facility] Last Admin: 04/10/18 09:14 Dose: 40 mg Potassium Chloride (K-Dur) 40 meq PO BID [facility] Last Admin: 04/10/18 09:14 Dose: 40 meq Pregabalin (Lyrica) 150 mg PO BID [facility] Last Admin: 04/10/18 09:14 Dose: 150 mg Sodium Chloride (Ns Flush) 2 ml IV.FLUSH BID [facility] Last Admin: 04/10/18 09:00 Dose: Not Given Sodium Chloride (Ns Flush) 2 ml IV.FLUSH PRN PRN PRN Reason: FLUSH AFTER USING IV ACCESS Venlafaxine HCl (Effexor Xr) 150 mg PO DAILY [facility] Last Admin: 04/10/18 09:13 Dose: 150 mg Allergies Allergy/AdvReac Type Severity Reaction Status Date / Time penicillin G Allergy Severe TONGUE/ Verified 04/02/18 13:55 FACIAL SWELLING etodolac AdvReac Severe ANXIETY, Verified 04/02/18 13:55 AGITATION zolpidem AdvReac Severe HALLUCINATI Verified 04/02/18 13:55 ONS Home Medications Medication Instructions Recorded Confirmed Type atorvastatin [Lipitor] 10 mg PO DAILY 04/02/18 04/02/18 History calcium carbonate-vitamin D3 1 tab PO DAILY 04/02/18 04/02/18 History [Calcium with Vitamin D] donepezil [Aricept] 23 mg PO DAILY 04/02/18 04/02/18 History ferrous sulfate 325 mg PO DAILY 04/02/18 04/02/18 History hydrochlorothiazide 25 mg PO DAILY 04/02/18 04/02/18 History hydrocodone-acetaminophen 1 tab PO QID PRN 04/02/18 04/02/18 History levothyroxine 50 mcg PO DAILY 04/02/18 04/02/18 History montelukast 10 mg PO QPM 04/02/18 04/02/18 History pantoprazole 40 mg PO BID 04/02/18 04/02/18 History pregabalin [Lyrica] 150 mg PO BID 04/02/18 04/02/18 History venlafaxine [Effexor XR] 150 mg PO DAILY 04/02/18 04/02/18 History Physical Exam Vital signs: Vital Signs 04/09/18 16:00 04/09/18 20:00 04/10/18 00:00 Temperature 97.9 F 98.2 F 97.9 F Pulse Rate 77 87 75 Respiratory Rate 16 16 16 Blood Pressure 151/68 H 182/71 H 199/91 H Pulse Oximetry 97 98 98 04/10/18 01:18 04/10/18 04:00 04/10/18 08:00 Temperature 98.2 F 97.8 F Pulse Rate 67 68 Respiratory Rate 16 16 Blood Pressure 132/63 134/62 166/76 H Pulse Oximetry 96 98 04/10/18 09:00 04/10/18 12:00 Temperature 98.3 F Pulse Rate 69 71 Respiratory Rate 16 Blood Pressure 144/69 H Pulse Oximetry 99 Intake & Output 04/09/18 04/10/18 04/10/18 18:59 06:59 18:59 Intake Total 2820 / 2820 100 / 100 100 / 100 Balance 2820 / 2820 100 / 100 100 / 100 Weight 61.7 kg Intake: IV 1200 / 1200 100 / 100 100 / 100 D5W/NS + KCL 40 mEq Inj 1,000 1000 / 1000 ML @ 50 mls/hr IV.CONT .Q20H [facility] Rx#:[id number] Azactam Inj 1,000 MG In NS Inj 200 / 200 100 / 100 100 / 100 100 ML @ 200 mls/hr IV.SIG Q8H [facility] Rx#:[id number] Oral 1620 / 1620 Other: # Voids 3 1 1 # Urine Diapers 1 Date of Last Bowel Movement 04/09/18 04/10/18 04/10/18 # Bowel Movements 3 1 1 Narrative: GENERAL: NAD SKIN: Warm and dry. HEAD: Atraumatic. Normocephalic. EYES: Pupils equal and round. No scleral icterus. No injection or drainage. ENT: No nasal bleeding or discharge. Mucous membranes pink and moist. NECK: Trachea midline. No JVD. CARDIOVASCULAR: Irregularly irregular RESPIRATORY: No accessory muscle use. Clear to auscultation. Breath sounds equal bilaterally. GASTROINTESTINAL: Abdomen soft, non-tender, nondistended. Hepatic and splenic margins not palpable. MUSCULOSKELETAL: Extremities without clubbing, cyanosis, or edema. No obvious deformities. NEUROLOGICAL: Awake and alert. No obvious cranial nerve deficits. Motor grossly within normal limits. Five out of 5 muscle strength in the arms and legs. Normal speech. PSYCHIATRIC: Appropriate mood and affect; insight and judgment normal. - Urinary Catheter Management Straight Cath placed during this visit: yes Reason for continuing: Not indwelling catheter Insertion time: 15:40 Results 04/10/18 09:50 04/10/18 10:27 CBC 04/09/18 04/10/18 Range/Units 10:20 09:50 WBC 8.7 9.5 (4.0-11.0) th/mm3 RBC 3.76 L 3.65 L (4.00-5.30) mil/mm3 Hgb 11.9 11.5 L (11.6-15.3) gm/dL Hct 35.1 34.8 L (35.0-46.0) % Plt Count 177 186 (150-450) th/mm3 Neut # (Auto) 7.3 7.9 H (1.8-7.7) th/mm3 Lymph # (Auto) 0.6 L 0.8 L (1.0-4.8) th/mm3 [place] # (Auto) 0.6 0.6 (0.0-0.9) th/mm3 Eos # (Auto) 0.1 0.2 (0.0-0.4) th/mm3 Baso # (Auto) 0.0 0.0 (0.0-0.2) th/mm3 Comprehensive Metabolic Panel 04/09/18 04/10/18 Range/Units 10:20 10:27 Sodium 145 143 (136-145) meq/L Potassium 3.8 4.3 (3.5-5.1) meq/L Chloride 107 108 H (98-107) meq/L Carbon Dioxide 30.9 29.9 (21.0-32.0) meq/L BUN 8 9 (7-18) mg/dL Creatinine 0.65 0.76 (0.50-1.00) mg/dL Calcium 8.2 L 7.9 L (8.5-10.1) mg/dL Intake and Output 04/10/18 04/10/18 04/10/18 06:59 14:59 22:59 Intake Total 100 / 100 100 / 100 Balance 100 / 100 100 / 100 Intake: IV 100 / 100 100 / 100 Azactam Inj 1,000 MG In NS Inj 100 / 100 100 / 100 100 ML @ 200 mls/hr IV.SIG Q8H [facility] Rx#:[id number] Other: # Voids 1 1 # Urine Diapers 1 Date of Last Bowel Movement 04/10/18 04/10/18 # Bowel Movements 1 1 Weight 61.7 kg Assessment and Plan - Assessment (1) CVA (cerebral vascular accident) Code(s): I63.9 - Cerebral infarction, unspecified Status: Acute (2) Afib Code(s): I48.91 - Unspecified atrial fibrillation Status: Acute (3) Stomach ulcer Code(s): K25.9 - Gastric ulcer, unspecified as acute or chronic, without hemorrhage or perforation Status: Acute - Plan 1) CVA Per neurology 2) Afib Appears to have Afib on telemetry Rates controlled Neuro/Primary team discussed with daughter about risks/benefits and they decided to place her on Eliquis 5mg BID Agree with stopping ASA 3) History of stomach ulcer with significant bleed 4) No further cardiovascular work up 5) HTN Con't on Norvasc/Lisinopril Blood pressure better, Lisinopril can be titrated 6) HLD Currently on Pravastatin and Lipitor, will DC Pravastatin 7) No further cardiovascular work up Will see PRN, call with questions
[2018-04-10] MEDS: Montelukast 10 MG Tablet PO SCH (17:18)
[2018-04-10] MEDS: Acetaminophen 325 MG Tablet PO PRN (20:00)
[2018-04-11] MEDS: Levothyroxine 50 MCG Tablet PO SCH (06:34)
--- NOTE | 2018-04-11 07:40 | P.PN ---
Physical Exam Vital signs: Vital Signs 04/10/18 09:00 04/10/18 12:00 04/10/18 16:00 Temperature 98.3 F 98.3 F Pulse Rate 69 71 74 Respiratory Rate 16 14 Blood Pressure 144/69 H 131/61 Pulse Oximetry 99 96 04/10/18 20:00 04/11/18 00:00 04/11/18 04:00 Temperature 98.4 F 98.2 F 98.1 F Pulse Rate 79 77 78 Respiratory Rate 18 18 18 Blood Pressure 139/63 136/64 173/78 H Pulse Oximetry 98 98 95 Intake & Output 04/10/18 04/11/18 04/11/18 19:59 06:59 18:59 Intake Total Balance Intake: IV Azactam Inj 1,000 MG In NS Inj 100 ML @ 200 mls/hr IV.SIG Q8H [facility] Rx#:[id number] Other: # Voids # Urine Diapers Date of Last Bowel Movement # Bowel Movements - Urinary Catheter Management Straight Cath placed during this visit: yes Reason for continuing: Not indwelling catheter Insertion time: 15:40 Results - Labs CBC & Chem 7: 04/10/18 09:50 04/10/18 10:27 Laboratory Results - last 24 hr 04/10/18 04/10/18 04/10/18 09:50 10:27 11:23 WBC 9.5 RBC 3.65 L Hgb 11.5 L Hct 34.8 L MCV 95.3 MCH 31.6 MCHC 33.2 RDW 20.1 H Plt Count 186 MPV 8.2 Prelim Diff (Auto) Slide review pending Neut % (Auto) 83.0 H Lymph % (Auto) 8.6 L [place] % (Auto) 6.4 Eos % (Auto) 1.6 Baso % (Auto) 0.4 Neut # (Auto) 7.9 H Lymph # (Auto) 0.8 L [place] # (Auto) 0.6 Eos # (Auto) 0.2 Baso # (Auto) 0.0 WBC Differential Manual diff final Seg Neuts % (Manual) 68 Band Neuts % (Manual) 15 H Lymphocytes % (Manual) 8 L Monocytes % (Manual) 8 Myelocytes % (Man) 1 H Abs Neuts (Manual) 8.0 H Differential Comment . Toxic Granulation 1+ H Platelet Estimate Normal Platelet Morphology Normal Sodium 143 Potassium 4.3 Chloride 108 H Carbon Dioxide 29.9 Anion Gap 5 BUN 9 Creatinine 0.76 Estimated GFR 72 L POC Glucose 78 Random Glucose 98 Calcium 7.9 L Microbiology 04/09/18 15:20 Clean Catch Urine Urine Culture - Preliminary Immature growth - reincubate 04/05/18 19:20 Blood - Peripheral Aerobic Blood Culture - Final No growth in 5 days 04/05/18 19:20 Blood - Peripheral Anaerobic Blood Culture - Final No growth in 5 days
--- NOTE | 2018-04-11 07:53 | P.PN ---
Subjective Interval history: awake and alert, speech clear and interactive stated her name ff commands moves all extremities spontaenously denies any chest pain.shortness of breath or urinary symptoms she thinks she is already in rehab facility Physical Exam Vital signs: Vital Signs 04/10/18 09:00 04/10/18 12:00 04/10/18 16:00 Temperature 98.3 F 98.3 F Pulse Rate 69 71 74 Respiratory Rate 16 14 Blood Pressure 144/69 H 131/61 Pulse Oximetry 99 96 04/10/18 20:00 04/11/18 00:00 04/11/18 04:00 Temperature 98.4 F 98.2 F 98.1 F Pulse Rate 79 77 78 Respiratory Rate 18 18 18 Blood Pressure 139/63 136/64 173/78 H Pulse Oximetry 98 98 95 Intake & Output 04/10/18 04/11/18 04/11/18 19:59 06:59 18:59 Intake Total Balance Intake: IV Azactam Inj 1,000 MG In NS Inj 100 ML @ 200 mls/hr IV.SIG Q8H [facility] Rx#:[id number] Other: # Voids # Urine Diapers Date of Last Bowel Movement # Bowel Movements Narrative: awake alert oriented x to person and year, pleasant, interactive "I forget easily" neck supple, no bruit lungs- no rales regular sinus rhythm on exam- right now abdomen soft, nontender extremiteis no edema neuro non focal moves all extrmeities spontaenously- weakness improved - Urinary Catheter Management Straight Cath placed during this visit: yes Reason for continuing: Not indwelling catheter Insertion time: 15:40 Results - Labs CBC & Chem 7: 04/10/18 09:50 04/10/18 10:27 Laboratory Results - last 24 hr 04/10/18 04/10/18 04/10/18 09:50 10:27 11:23 WBC 9.5 RBC 3.65 L Hgb 11.5 L Hct 34.8 L MCV 95.3 MCH 31.6 MCHC 33.2 RDW 20.1 H Plt Count 186 MPV 8.2 Prelim Diff (Auto) Slide review pending Neut % (Auto) 83.0 H Lymph % (Auto) 8.6 L [place] % (Auto) 6.4 Eos % (Auto) 1.6 Baso % (Auto) 0.4 Neut # (Auto) 7.9 H Lymph # (Auto) 0.8 L [place] # (Auto) 0.6 Eos # (Auto) 0.2 Baso # (Auto) 0.0 WBC Differential Manual diff final Seg Neuts % (Manual) 68 Band Neuts % (Manual) 15 H Lymphocytes % (Manual) 8 L Monocytes % (Manual) 8 Myelocytes % (Man) 1 H Abs Neuts (Manual) 8.0 H Differential Comment . Toxic Granulation 1+ H Platelet Estimate Normal Platelet Morphology Normal Sodium 143 Potassium 4.3 Chloride 108 H Carbon Dioxide 29.9 Anion Gap 5 BUN 9 Creatinine 0.76 Estimated GFR 72 L POC Glucose 78 Random Glucose 98 Calcium 7.9 L Microbiology 04/09/18 15:20 Clean Catch Urine Urine Culture - Preliminary Immature growth - reincubate 04/05/18 19:20 Blood - Peripheral Aerobic Blood Culture - Final No growth in 5 days 04/05/18 19:20 Blood - Peripheral Anaerobic Blood Culture - Final No growth in 5 days Assessment and Plan - Plan 87-year-old female with a history of hypertension, dementia and anemia was brought to the ED for evaluation of altered mental status. Patient found to have an acute CVA and severe sepsis secondary to UTI. Acute Encephalopathy - multifactorial - MS improved CVA, acute left sided weakness- neruo exam- improved Head MRI shows a small acute to subacute lacunar type infarct involving the left basal ganglia with restricted diffusion -Appreciate neurology input. Patient started on aspirin. -2D echo showed mildly reduced LVEF of 45-50%. -Monitor telemetry, - a fib -A1C and lipids okay.-on statins -Carotid US with less than 50% stenosis Atrial fibrillation- rate controlled- goes in adn out of a fib- rate controlled Cardiomyopathy EF 45-50%- not in clnical failure - cardiology ff-- - add eliquis 5 mg bid- d/w ptient and family- understands risks - started on Lisinopril 2.5 mg daily 04/10 by Cardiology Severe Sepsis secondary to UTI/gram-negative leandro bacteremia -2 L bolus given in ED, lactic resolved to 0.9 -Blood cultures grew E. coli -Continue IV antibiotics with aztreonam till 04/12 -Appreciate infectious disease following. FF Repeat blood cultures - negative last 48 hours Acute kidney injury, creatine 1.7, baseline .7, likely due to infection and dehydration -Renal functions improved HYpokalemia- -Resolved - Mg normal - 40 meq po bid- decrease to 20 meq bid with addition of KENZIE - BMP in SNF tomorrow HTN, chronic- overall good control -Continue amlodipine. Lisinorpirl 2.5 mg dailyClonidine as needed. -Monitor vitals Dementia, chronic- pleasant and interactive "I forget easily" -Resume home dose Aricept History of gastric ulcers: - Continue PPI twice a day. Previously discussed risk and benefit with the patient's daughter. started eliquis- ASA was DC ff H and h- stable DVT prophylaxis: on Eliquis PCP - Dr. Hobbs in [place] and CM DC today this am after first dose of Azactam- needs 5 more doses of Azactam- till 04/12 next dose due today at 3 pm
--- NOTE | 2018-04-11 08:07 | P.DS ---
Date of admission: 04/02/18 18:10 Primary care physician: UNKNOWN Attending physician on discharge: Megan Joaquin Anticipated date of discharge: 04/11/18 Brief History from admission: 87-year-old female with a history of hypertension, dementia and anemia was brought to the ED for evaluation of altered mental status. Patient is oriented x1, to self so ROS is limited, daughter is currently not at bedside, but was when the patient was in the ER and was able to provide history. Apparently 4 days ago patient was slumped over on the toilet and was taken back to bed and since then she has been unable to care for herself has had slurred speech and has been more confused than normal. Per the ER physician daughter stated that the patient felt feverish at home but did not complain of any pain, shortness of breath, dizziness or headaches. Upon examination patient is very sleepy, oriented x1, and does not follow many commands. Patient update on day of discharge: awake and alert, speech clear and interactive strength much improved "I forget easily" no pain complains currently sinus on exam this am but reviewed telemetry- goes in and out of a fib- but rate controlled DS: Summary Hospital Course: 87-year-old female with a history of hypertension, dementia and anemia was brought to the ED for evaluation of altered mental status. Patient found to have an acute CVA and severe sepsis secondary to UTI. Acute Encephalopathy - multifactorial - MS improved CVA, acute left sided weakness- neruo exam- improved Head MRI shows a small acute to subacute lacunar type infarct involving the left basal ganglia with restricted diffusion -Appreciate neurology input. Patient started on aspirin. -2D echo showed mildly reduced LVEF of 45-50%. -Monitor telemetry, - a fib -A1C and lipids okay.-on statins -Carotid US with less than 50% stenosis Atrial fibrillation- rate controlled- goes in adn out of a fib- rate controlled Cardiomyopathy EF 45-50%- not in clnical failure - cardiology ff-- - add eliquis 5 mg bid- d/w ptient and family- understands risks - started on Lisinopril 2.5 mg daily 04/10 by Cardiology E coli Severe Sepsis secondary to E coli UTI -2 L bolus given in ED, lactic resolved to 0.9 -Blood cultures grew E. coli -Continue IV antibiotics with aztreonam till 04/12 -Appreciate infectious disease following. FF Repeat blood cultures - negative last 48 hours Acute kidney injury, creatine 1.7, baseline .7, likely due to infection and dehydration -Renal functions improved HYpokalemia- -Resolved - Mg normal - 40 meq po bid- decrease to 20 meq bid with addition of KENZIE - BMP in SNF tomorrow HTN, chronic- overall good control -Continue amlodipine. Lisinorpirl 2.5 mg dailyClonidine as needed. -Monitor vitals Dementia, chronic- pleasant and interactive "I forget easily" -Resume home dose Aricept History of gastric ulcers: - Continue PPI twice a day. Previously discussed risk and benefit with the patient's daughter. started eliquis- ASA was DC ff H and h- stable DVT prophylaxis: on Eliquis PCP - Dr. Hobbs in [place] and CM DC today this am after first dose of Azactam- needs 5 more doses of Azactam- till 04/12 next dose due today at 3 pm - Time Spent with Patient Total time spent providing and/or coordinating discharge services: Exam Vital signs: Vital Signs 04/10/18 12:00 04/10/18 16:00 04/10/18 20:00 Temperature 98.3 F 98.3 F 98.4 F Pulse Rate 71 74 79 Respiratory Rate 16 14 18 Blood Pressure 144/69 H 131/61 139/63 Pulse Oximetry 99 96 98 04/11/18 00:00 04/11/18 04:00 Temperature 98.2 F 98.1 F Pulse Rate 77 78 Respiratory Rate 18 18 Blood Pressure 136/64 173/78 H Pulse Oximetry 98 95 Intake & Output 04/10/18 04/11/18 04/11/18 19:59 06:59 18:59 Intake Total Balance Intake: IV Azactam Inj 1,000 MG In NS Inj 100 ML @ 200 mls/hr IV.SIG Q8H [facility] Rx#:[id number] Other: # Voids # Urine Diapers Date of Last Bowel Movement # Bowel Movements Narrative: awake alert oriented x to person and place, ff all commands, speech soft but clear neck supple, no bruit lungs- no rales irregularly irregular rhythm abdomen soft, nontender extremities no edema moves all extremities spontaenouslu Results Labs on day of discharge: Labs from last 24 hours 04/10/18 04/10/18 04/10/18 11:23 10:27 09:50 WBC 9.5 RBC 3.65 L Hgb 11.5 L Hct 34.8 L MCV 95.3 MCH 31.6 MCHC 33.2 RDW 20.1 H Plt Count 186 MPV 8.2 Prelim Diff (Auto) Slide review pending Neut % (Auto) 83.0 H Lymph % (Auto) 8.6 L [place] % (Auto) 6.4 Eos % (Auto) 1.6 Baso % (Auto) 0.4 Neut # (Auto) 7.9 H Lymph # (Auto) 0.8 L [place] # (Auto) 0.6 Eos # (Auto) 0.2 Baso # (Auto) 0.0 WBC Differential Manual diff final Seg Neuts % (Manual) 68 Band Neuts % (Manual) 15 H Lymphocytes % (Manual) 8 L Monocytes % (Manual) 8 Myelocytes % (Man) 1 H Abs Neuts (Manual) 8.0 H Differential Comment . Toxic Granulation 1+ H Platelet Estimate Normal Platelet Morphology Normal Sodium 143 Potassium 4.3 Chloride 108 H Carbon Dioxide 29.9 Anion Gap 5 BUN 9 Creatinine 0.76 Estimated GFR 72 L POC Glucose 78 Random Glucose 98 Calcium 7.9 L Preliminary micro results at discharge 04/09/18 15:20 Urine Culture - Preliminary Clean Catch Urine Immature growth - reincubate - Impressions ITS Impressions Chest X-Ray 04/02/18 14:03 CONCLUSION: Negative examination. Head CT 04/02/18 14:03 CONCLUSION: 1. Atrophy and white matter disease. 2. Age indeterminate small focus of low density in the left basal ganglia measuring 1.1 cm. MRI may be helpful for further evaluation. . Head MRI 04/02/18 15:09 CONCLUSION: 1. Small acute to subacute lacunar type infarct involving the left basal ganglia with restricted diffusion. 2. No evidence of hemorrhage or mass effect. 3. Atrophy and chronic small vessel ischemic changes. Carotid Doppler Study 04/03/18 00:00 CONCLUSION: 1. Right Internal Carotid Artery: Findings indicate <50% stenosis. 2. Left Internal Carotid Artery: Findings indicate <50% stenosis. Neck MRA 04/03/18 00:00 CONCLUSION: 1. Focal narrowing in the left carotid bulb with approximately 60% stenosis. 2. No significant stenosis is identified within the right internal carotid artery. 3. Left vertebral artery is dominant. Percent stenosis is calculated using the diameter of the stenotic region over the diameter of the normal distal internal carotid artery Head MRA 04/03/18 11:01 CONCLUSION: 1. There is asymmetric decreased flow related enhancement within the right M1 segment. 2. 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 3. Diminutive right distal vertebral artery. Discharge Plan - Discharge Disposition Patient Disposition: 03 Discharge to SNF - Discharge Condition Condition: Stable - Discharge Order Discharge Orders: Discharge Order (Routine); Ordered 04/11/18 Ordered By: Megan Joaquin - Discharge Details Anticipated Discharge Date: 04/11/18 - Physicians Team Primary Care Provider: UNKNOWN, Attending Provider: Megan Joaquin Other Providers: Abelardo Mondragon MD ; Alex Mclean MD ; Ion Infante MD ; Edmond West MD ; [facility],Agency
[2018-04-11] MEDS: Pregabalin 75 MG Capsule PO SCH (08:29)
[2018-04-11] MEDS: levETIRAcetam 500 MG Tablet PO SCH (08:30)
[2018-04-11] MEDS: Lisinopril 5 MG Tablet PO SCH (08:31)
[2018-04-11] MEDS: Calcium/Vitamin D 250/125 MG Tablet PO SCH (08:31)
[2018-04-11] MEDS: amLODIPine 5 MG Tablet PO SCH (08:31)
[2018-04-11] MEDS: Venlafaxine XR 75 MG Capsule PO SCH (08:31)
[2018-04-11] MEDS: Ferrous Sulfate 325 MG Tablet PO SCH (08:32)
== END 2018-04-11 19:16 ==
LOC: NEPE 13:41 → NEDA 18:10 → N05 19:59
PROVIDERS: ADMIT Internal Medicine; ATTEND Internal Medicine